=== PATIENT | male | born 1935 | race Hispanic/Latino ===

== ENCOUNTER 2020-02-22 11:23 | Inpatient (IN) | payer OTHER, MEDICARE ==
[~2020-02-22] VITALS: Ht 172.7 cm; Wt 93.2 kg
[2020-02-22 12:13] LABS: HEMATOCRIT 36.6 % (42-54); LYMPHOCYTES % (AUTO) 9.6 % (21.0-51.0); MEAN CORPUSCULAR HEMOGLOBIN 29.2 pg (27.0-33.0); MEAN CORPUSCULAR HGB CONC 34.4 g/dL (32.0-36.0); MEAN CORPUSCULAR VOLUME 84.7 fL (79-99); MONOCYTES % (AUTO) 6.4 % (3.0-13.0); NEUTROPHILS % (AUTO) 83.8 % (40.0-77.0); PLATELET COUNT (AUTO) 167 K/uL (130-400); RED BLOOD CELL COUNT(AUTO) 4.32 MIL/uL (4.50-6.20); RED CELL DISTRIBUTION WIDTH 12.8 % (11.0-15.5); WHITE BLOOD COUNT (AUTO) 4.1 K/uL (4.8-10.8)
[2020-02-22 12:45] LABS: CREATININE 1.3 mg/dL (0.5-1.5); POTASSIUM 4.5 mmol/L (3.5-5.1)
[2020-02-22 12:49] LABS: INR 1.03 (0.85-1.15)
[2020-02-22 12:50] LABS: PARTIAL THROMBOPLASTIN TIME 38.8 SEC (26.3-35.5)
[2020-02-22 13:00] LABS: ALBUMIN 3.2 g/dL (3.5-5.0); BILIRUBIN,TOTAL 0.5 mg/dL (0.2-1.0)
[2020-02-22] MEDS ORDERED: AZITHROMYCIN 500MG+NS 250ML 250 ML IV ONE (13:59)
[2020-02-22] MEDS ORDERED: DEXAMETHASONE SOD PHOSPHATE 10MG/ML 1ML VIAL ONE (13:59)
[2020-02-22] MEDS ORDERED: CEFTRIAXONE 1G VIAL ONE (14:00)
[2020-02-22] MEDS ORDERED: ACETAMINOPHEN 500 MG TABLET ONE (14:00)
[2020-02-22 15:21] LABS: APPEARANCE,URINE Clear (CLEAR); BILIRUBIN,URINE Negative (NEGATIVE); COLOR,URINE Yellow (YELLOW); GLUCOSE, URINE (UA) Negative (NEGATIVE); KETONES,URINE 15 mg/dL (NEGATIVE); LEUKOCYTE ESTERASE ,URINE Negative (NEGATIVE); NITRATE,URINE Negative (NEGATIVE); OCCULT BLOOD,URINE Trace (NEGATIVE); PROTEIN,URINE Trace mg/dL (NEGATIVE); UROBILINOGEN,URINE 0.2 mg/dL (0.2-1.0)
[2020-02-22 15:31] LABS: BACTERIA,URINE Rare /HPF (None Seen); RBC,URINE 0-1 /HPF (0-1); SQUAMOUS EPITHELIAL CELL,UR Rare /HPF (0-2); WBC,URINE 0-1 /HPF (0-1)
[2020-02-22] MEDS ORDERED: ONDANSETRON 4MG INJ IV PRN (18:45)
[2020-02-22] MEDS ORDERED: GLUCAGON 1MG KIT 1 MG ML IM PRN (18:45)
[2020-02-22] MEDS ORDERED: ERGOCALCIFEROL (VITAMIN D2) 50,000 UNIT CAPSULE PO ONE (18:45)
[2020-02-22] MEDS: 0.9%NACL 1000ML 1,000 ML IV SCH (18:45)
[2020-02-22] MEDS ORDERED: ACETAMINOPHEN 325 MG TAB PO PRN (18:45)
[2020-02-22] MEDS ORDERED: NITROGLYCERIN 0.4 MG SL TAB SL PRN (18:45)
[2020-02-22] MEDS: ALBUTEROL INHALER 90MCG/INH IH SCH ×2 (19:00→23:00)
[2020-02-22 19:41] LABS: HEMOGLOBIN A1C 7.2 % (4.0-6.0)
[2020-02-22 19:50] LABS: CRP QUANTITATIVE 101.1 mg/L (0.00-9.0); MAGNESIUM 2.1 mg/dL (1.80-2.40); TROPONIN I 0.04 ng/mL (0.00-0.06)
[2020-02-22] MEDS: HEPARIN 5,000 UNIT VIAL SQ SCH (21:00)
[2020-02-22] MEDS: ACETYLCYSTEINE 600 MG CAPSULE PO SCH (21:00)
[2020-02-22] MEDS: INSULIN HUMULIN R 100 UNIT/ML 3ML SQ SCH (21:00)
[2020-02-22] MEDS: CACL 1GM SYG IVP SCH (22:15)
[2020-02-22 23:08] LABS: TROPONIN I 0.05 ng/mL (0.00-0.06)
[2020-02-23 02:01] LABS: TROPONIN I 0.04 ng/mL (0.00-0.06)
[2020-02-23] MEDS: ALBUTEROL INHALER 90MCG/INH IH SCH ×6 (03:00→23:00)
[2020-02-23 03:28] LABS: HEMATOCRIT 37.1 % (42-54); LYMPHOCYTES % (AUTO) 13.1 % (21.0-51.0); MEAN CORPUSCULAR HGB CONC 34.5 g/dL (32.0-36.0); MEAN CORPUSCULAR VOLUME 83.9 fL (79-99); MONOCYTES % (AUTO) 7.1 % (3.0-13.0); NEUTROPHILS % (AUTO) 79.4 % (40.0-77.0); PLATELET COUNT (AUTO) 180 K/uL (130-400); RED BLOOD CELL COUNT(AUTO) 4.42 MIL/uL (4.50-6.20); RED CELL DISTRIBUTION WIDTH 12.8 % (11.0-15.5); WHITE BLOOD COUNT (AUTO) 2.7 K/uL (4.8-10.8)
[2020-02-23 04:00] LABS: ALANINE AMINOTRANSFERASE 27 U/L (12-78); ASPARTATE AMINOTRANSFERASE 40 U/L (10-37); BILIRUBIN,TOTAL 0.4 mg/dL (0.2-1.0); CARBON DIOXIDE 23 mmol/L (21-32); CHLORIDE 98 mmol/L (101-111); CREATININE 1.4 mg/dL (0.5-1.5); GLOMERULAR FILTR. RATE CALC 51 mL/min (>60); GLUCOSE,RANDOM 241 mg/dL (70-105); LACTATE DEHYDROGENASE 260 U/L (81-234); MYOGLOBIN 283 ng/mL (10-92); POTASSIUM 4.9 mmol/L (3.5-5.1); SODIUM SERUM 132 mmol/L (136-145); TOTAL PROTEIN, SERUM 6.4 g/dL (6.0-8.3); TROPONIN I < 0.04 ng/mL (0.00-0.06); UREA NITROGEN, BLOOD 22 mg/dL (7-18)
[2020-02-23 04:01] LABS: CREATINE KINASE, TOTAL 619 U/L (21-232)
[2020-02-23 04:37] LABS: LYMPHOCYTES % (MANUAL) 19 % (22-44); MAN.DIFF COMMENT-IMPRESSION MANUAL DIFFERENTIAL; MONOCYTES % (MANUAL) 3 % (2-9); SEGMENTED NEUTROPHILS % 78 % (40-70)
[2020-02-23 04:38] LABS: PLATELET MORPHOLOGY COMMENT ADEQUATE
[2020-02-23] MEDS: 0.9%NACL 1000ML 1,000 ML IV SCH ×2 (04:45→14:45)
[2020-02-23] MEDS: INSULIN HUMULIN R 100 UNIT/ML 3ML SQ SCH ×4 (07:30→21:00)
[2020-02-23] MEDS: AZITHROMYCIN 500MG+NS 250ML 250 ML IV SCH (09:00)
[2020-02-23] MEDS ORDERED: ENOXAPARIN SODIUM 40 MG/0.4 ML SYRINGE SQ SCH (09:00)
[2020-02-23] MEDS: FAMOTIDINE 20MG TAB PO SCH (09:00)
[2020-02-23] MEDS: ZINC SULFATE 220 CAPSULE PO SCH (09:00)
[2020-02-23] MEDS: CEFTRIAXONE 1G VIAL IV SCH (09:00)
[2020-02-23] MEDS: DEXAMETHASONE SOD PHOSPHATE 4 MG/ML 1ML VIAL IVP SCH (09:00)
[2020-02-23] MEDS: HEPARIN 5,000 UNIT VIAL SQ SCH ×3 (09:00→21:00)
[2020-02-23] MEDS: ACETYLCYSTEINE 600 MG CAPSULE PO SCH ×2 (09:00→21:00)
[2020-02-23] MEDS: ASCORBIC ACID 500 MG TAB PO SCH (09:00)
[2020-02-23] MEDS ORDERED: ASCORBIC ACID 500 MG TAB ONE (09:22)
[2020-02-23] MEDS ORDERED: DEXAMETHASONE SOD PHOSPHATE 10MG/ML 1ML VIAL ONE (09:22)
[2020-02-23] MEDS ORDERED: FAMOTIDINE 20MG TAB ONE (09:23)
[2020-02-23] MEDS ORDERED: ACETYLCYSTEINE 600 MG CAPSULE ONE ×2 (09:23→21:49)
[2020-02-23] MEDS ORDERED: 0.9%NACL 1000ML 1,000 ML IV ONE ×2 (09:23→09:26)
[2020-02-23] MEDS ORDERED: HEPARIN 5,000 UNIT VIAL ONE ×3 (09:23→22:18)
[2020-02-23] MEDS ORDERED: ZINC SULFATE 220 CAPSULE ONE (09:24)
[2020-02-23] MEDS ORDERED: ALBUTEROL INHALER 90MCG/INH IH ONE (09:38)
[2020-02-23 10:45] LABS: TROPONIN I 0.05 ng/mL (0.00-0.06)
[2020-02-23] MEDS ORDERED: INSULIN HUMULIN R 100 UNIT/ML 3ML ONE ×2 (12:00→17:42)
[2020-02-23] MEDS ORDERED: AZITHROMYCIN 500MG+NS 250ML 250 ML IV ONE (13:30)
[2020-02-23] MEDS ORDERED: CEFTRIAXONE 1G VIAL ONE (13:30)
[2020-02-23] MEDS ORDERED: 0.9%NACL 50ML 50 ML IV ONE (13:31)
[2020-02-23] MEDS ORDERED: PHARMACY COMMUNICATION**REMDESIVIR ORDER MISC SCH (15:15)
[2020-02-23 16:19] LABS: TROPONIN I 0.06 ng/mL (0.00-0.06)
[2020-02-23] MEDS ORDERED: 0.9% NACL 250ML 250 ML IV ONE (17:26)
[2020-02-23] MEDS: CACL 1GM SYG IVP SCH (22:15)
[2020-02-23 22:44] LABS: TROPONIN I 0.06 ng/mL (0.00-0.06)
[2020-02-24] VITALS (12 sets, daily range): BP systolic 104–155; BP diastolic 62–92
[2020-02-24] MEDS: 0.9%NACL 1000ML 1,000 ML IV SCH (01:18)
[2020-02-24] MEDS: ALBUTEROL INHALER 90MCG/INH IH SCH ×6 (03:00→23:28)
[2020-02-24 04:11] LABS: BASOPHILS % (AUTO) 0.1 % (0.0-5.0); HEMATOCRIT 36.6 % (42-54); LYMPHOCYTES % (AUTO) 5.9 % (21.0-51.0); MEAN CORPUSCULAR HEMOGLOBIN 29.1 pg (27.0-33.0); MEAN CORPUSCULAR HGB CONC 34.7 g/dL (32.0-36.0); MEAN CORPUSCULAR VOLUME 83.8 fL (79-99); MONOCYTES % (AUTO) 3.8 % (3.0-13.0); NEUTROPHILS % (AUTO) 89.8 % (40.0-77.0); PLATELET COUNT (AUTO) 228 K/uL (130-400); RED BLOOD CELL COUNT(AUTO) 4.37 MIL/uL (4.50-6.20); RED CELL DISTRIBUTION WIDTH 12.9 % (11.0-15.5); WHITE BLOOD COUNT (AUTO) 7.9 K/uL (4.8-10.8)
[2020-02-24 04:26] LABS: ALBUMIN 2.9 g/dL (3.5-5.0); BILIRUBIN,TOTAL 0.4 mg/dL (0.2-1.0); CREATININE 1.1 mg/dL (0.5-1.5); CRP QUANTITATIVE 61.5 mg/L (0.00-9.0); POTASSIUM 4.5 mmol/L (3.5-5.1); TOTAL PROTEIN, SERUM 6.9 g/dL (6.0-8.3)
[2020-02-24] MEDS ORDERED: MORPHINE 2 MG SYG IVP ONE ×2 (05:15)
[2020-02-24] MEDS ORDERED: MORPHINE 2 MG SYG ONE (05:25)
[2020-02-24 05:38] LABS: ABG HCO3 20.2 mmol/L (21.0-28.0); ABG OXYGEN SATURATION 95.9 % (95.0-99.0); ABG PCO2 31 mmHg (35-48)
[2020-02-24] MEDS: INSULIN HUMULIN R 100 UNIT/ML 3ML SQ SCH ×4 (06:35→22:22)
[2020-02-24] MEDS: ACETYLCYSTEINE 600 MG CAPSULE PO SCH ×2 (08:22→21:17)
[2020-02-24] MEDS: DEXAMETHASONE SOD PHOSPHATE 4 MG/ML 1ML VIAL IVP SCH (08:23)
[2020-02-24] MEDS: CEFTRIAXONE 1G VIAL IV SCH (08:23)
[2020-02-24] MEDS: FAMOTIDINE 20MG TAB PO SCH (08:23)
[2020-02-24] MEDS: ASCORBIC ACID 500 MG TAB PO SCH (08:23)
[2020-02-24] MEDS: ZINC SULFATE 220 CAPSULE PO SCH (08:24)
[2020-02-24] MEDS: HEPARIN 5,000 UNIT VIAL SQ SCH (08:25)
[2020-02-24] MEDS: AZITHROMYCIN 500MG+NS 250ML 250 ML IV SCH (08:25)
[2020-02-24] MEDS: ACETAMINOPHEN 325 MG TAB PO PRN ×2 (08:32→21:17)
[2020-02-24] MEDS ORDERED: COMPOUND IV REFRIGERATED 1 EACH IVSOLN MISC PRN (14:00)
[2020-02-24] MEDS ORDERED: REMDESIVIR (EUA) 520 200 MG in 0.9% NACL 250ML 250 ML IV ONE (14:00)
[2020-02-24] MEDS ORDERED: FUROSEMIDE 20MG VIAL IVP STA (14:04)
[2020-02-24] MEDS ORDERED: PHARMACY COMMUNICATION MISC SCH (14:45)
[2020-02-24] MEDS ORDERED: QUETIAPINE FUMARATE 25 MG TAB PO SCH (20:00)
[2020-02-24] MEDS ORDERED: ENOXAPARIN SODIUM 0.5 MG/KG EACH SQ SCH (21:00)
[2020-02-24] MEDS ORDERED: ENOXAPARIN SODIUM 40 MG/0.4 ML SYRINGE SQ SCH (21:00)
[2020-02-24] MEDS: CACL 1GM SYG IVP SCH (21:20)
[2020-02-24] MEDS: FUROSEMIDE 100MG VIAL IVP SCH (22:02)
[2020-02-25] VITALS (122 sets, daily range): BP systolic 49–184; BP diastolic 23–80
[2020-02-25] MEDS ORDERED: DEXMEDETOMIDINE HCL 200 MCG/2 ML VIAL IV ONE (02:19)
[2020-02-25] MEDS ORDERED: 0.9%NACL 100ML 100 ML IV ONE (02:23)
[2020-02-25] MEDS: ALBUTEROL INHALER 90MCG/INH IH SCH ×2 (03:00→07:00)
[2020-02-25] MEDS ORDERED: PROPOFOL 1000 MG/100 ML 100 ML IV ONE (03:31)
[2020-02-25] MEDS ORDERED: FENTANYL 2500MCG+NS 250ML 250 ML IV ONE (03:42)
[2020-02-25] MEDS ORDERED: FENTANYL CITRATE PF 0.05 MG/ML 1,000 MCG in 0.9%NACL 100ML 100 ML IVPB PRN (04:15)
[2020-02-25] MEDS ORDERED: 0.9%NACL 1000ML 1,000 ML IV ONE (04:33)
[2020-02-25] MEDS ORDERED: NOREPINEPHRINE BITARTRATE 1 MG/1 ML ML IV ONE (04:33)
[2020-02-25] MEDS ORDERED: NOREPINEPHRIN 4MG/NS 250ML 250 ML IV ONE ×2 (04:34→13:07)
[2020-02-25 04:43] LABS: ABG BASE EXCESS -5.8 mmol/L (-2.0-3.0); ABG HCO3 18.6 mmol/L (21.0-28.0); ABG OXYGEN SATURATION 89.7 % (95.0-99.0); ABG PCO2 33 mmHg (35-48)
[2020-02-25 04:56] LABS: BASOPHILS % (AUTO) 0.1 % (0.0-5.0); HEMATOCRIT 41.4 % (42-54); LYMPHOCYTES % (AUTO) 3.6 % (21.0-51.0); MEAN CORPUSCULAR HEMOGLOBIN 28.9 pg (27.0-33.0); MEAN CORPUSCULAR HGB CONC 33.1 g/dL (32.0-36.0); MEAN CORPUSCULAR VOLUME 87.3 fL (79-99); MONOCYTES % (AUTO) 3.5 % (3.0-13.0); NEUTROPHILS % (AUTO) 86.9 % (40.0-77.0); PLATELET COUNT (AUTO) 314 K/uL (130-400); RED BLOOD CELL COUNT(AUTO) 4.74 MIL/uL (4.50-6.20); RED CELL DISTRIBUTION WIDTH 13.2 % (11.0-15.5); WHITE BLOOD COUNT (AUTO) 16.9 K/uL (4.8-10.8)
[2020-02-25 05:21] LABS: ALBUMIN 2.8 g/dL (3.5-5.0); BILIRUBIN,DIRECT 0.3 mg/dL (0.0-0.3); BILIRUBIN,TOTAL 0.6 mg/dL (0.2-1.0); CREATININE 1.6 mg/dL (0.5-1.5); POTASSIUM 4.5 mmol/L (3.5-5.1); TOTAL PROTEIN, SERUM 7.2 g/dL (6.0-8.3)
[2020-02-25 05:26] LABS: TROPONIN I 0.65 ng/mL (0.00-0.06)
[2020-02-25 05:58] LABS: CRP QUANTITATIVE 239.2 mg/L (0.00-9.0)
[2020-02-25] MEDS: PHARMACY COMMUNICATION MISC SCH (06:00)
[2020-02-25] MEDS: FUROSEMIDE 100MG VIAL IVP SCH (06:00)
[2020-02-25] MEDS: INSULIN HUMULIN R 100 UNIT/ML 3ML SQ SCH ×4 (07:30→20:46)
[2020-02-25] MEDS: PROPOFOL 1000 MG/100 ML 100 ML IV PRN ×2 (09:31→20:43)
[2020-02-25] MEDS: FAMOTIDINE 20MG TAB PO SCH (09:37)
[2020-02-25] MEDS: DEXAMETHASONE SOD PHOSPHATE 4 MG/ML 1ML VIAL IVP SCH (09:37)
[2020-02-25] MEDS: ZINC SULFATE 220 CAPSULE PO SCH (09:38)
[2020-02-25] MEDS: ASCORBIC ACID 500 MG TAB PO SCH (09:38)
[2020-02-25] MEDS: ACETYLCYSTEINE 600 MG CAPSULE PO SCH ×2 (09:38→20:46)
[2020-02-25] MEDS ORDERED: PHENYLEPHRINE HCL 50 MG in 0.9% NACL 250ML 250 ML IV PRN (10:30)
[2020-02-25] MEDS ORDERED: DILTIAZEM 50MG VIAL IV SCH (11:15)
[2020-02-25] MEDS: MEROPENEM 1 GM VIAL IVP SCH ×2 (11:27→17:57)
[2020-02-25] MEDS: VASOPRESSIN 20 UNITS in 0.9%NACL 100ML 100 ML IV SCH (12:45)
[2020-02-25] MEDS ORDERED: NOREPINEPHRIN 4MG/NS 250ML 250 ML IV SCH (13:15)
[2020-02-25] MEDS ORDERED: REMDESIVIR (EUA) 520 100 MG in 0.9% NACL 250ML 250 ML IV SCH (14:00)
[2020-02-25] MEDS ORDERED: VECURONIUM 10MG/10ML IV ONE (15:49)
[2020-02-25] MEDS ORDERED: VECURONIUM 10MG/10ML 50 MG in 0.9%NACL 50ML 50 ML IV SCH (16:30)
[2020-02-25] MEDS: LINEZOLID 600 MG/ISO-OSM 300 ML IV SCH (17:57)
[2020-02-25] MEDS: NOREPINEPHRINE BITARTRATE 32 MG in 0.9% NACL 250ML 250 ML IV PRN (18:57)
[2020-02-25] MEDS: ENOXAPARIN SODIUM 80 MG/0.8 ML SQ SCH (20:50)
[2020-02-26] VITALS (112 sets, daily range): BP systolic 6–187; BP diastolic -21–92
[2020-02-26] MEDS: FENTANYL 2500MCG+NS 250ML 250 ML IV SCH ×2 (00:21→15:27)
[2020-02-26] MEDS ORDERED: VECURONIUM 10MG/10ML IV ONE (01:25)
[2020-02-26] MEDS: NOREPINEPHRINE BITARTRATE 32 MG in 0.9% NACL 250ML 250 ML IV PRN (01:55)
[2020-02-26] MEDS: VASOPRESSIN 20 UNITS in 0.9%NACL 100ML 100 ML IV SCH (02:45)
[2020-02-26] MEDS: PROPOFOL 1000 MG/100 ML 100 ML IV PRN ×4 (02:47→19:59)
[2020-02-26] MEDS: MEROPENEM 1 GM VIAL IVP SCH ×2 (02:47→11:13)
[2020-02-26 04:15] LABS: BASOPHILS % (AUTO) 0.2 % (0.0-5.0); EOSINOPHILS % (AUTO) 0.4 % (0.0-8.0); HEMATOCRIT 36.9 % (42-54); LYMPHOCYTES % (AUTO) 3.6 % (21.0-51.0); MEAN CORPUSCULAR HEMOGLOBIN 28.7 pg (27.0-33.0); MEAN CORPUSCULAR HGB CONC 32.8 g/dL (32.0-36.0); MEAN CORPUSCULAR VOLUME 87.6 fL (79-99); MONOCYTES % (AUTO) 4.9 % (3.0-13.0); NEUTROPHILS % (AUTO) 89.8 % (40.0-77.0); PLATELET COUNT (AUTO) 434 K/uL (130-400); RED BLOOD CELL COUNT(AUTO) 4.21 MIL/uL (4.50-6.20); RED CELL DISTRIBUTION WIDTH 13.5 % (11.0-15.5); WHITE BLOOD COUNT (AUTO) 16.8 K/uL (4.8-10.8)
[2020-02-26 04:25] LABS: ABG BASE EXCESS -12.2 mmol/L (-2.0-3.0); ABG HCO3 14.2 mmol/L (21.0-28.0); ABG OXYGEN SATURATION 98.6 % (95.0-99.0); ABG PCO2 34 mmHg (35-48)
[2020-02-26 04:34] LABS: CREATININE 2.9 mg/dL (0.5-1.5); MAGNESIUM 2.7 mg/dL (1.80-2.40); POTASSIUM 5.1 mmol/L (3.5-5.1)
[2020-02-26] MEDS: PHARMACY COMMUNICATION MISC SCH ×4 (06:00→18:45)
[2020-02-26] MEDS: INSULIN HUMULIN R 100 UNIT/ML 3ML SQ SCH ×3 (06:02→18:13)
[2020-02-26] MEDS ORDERED: INSULIN HUMULIN R 100 UNIT/ML 3ML SQ SCH (06:15)
[2020-02-26] MEDS ORDERED: INSULIN NPH 100 UNIT/ML 3ML SQ ONE (06:38)
[2020-02-26] MEDS: LINEZOLID 600 MG/ISO-OSM 300 ML IV SCH ×2 (06:44→18:13)
[2020-02-26 06:54] LABS: ALBUMIN 2.5 g/dL (3.5-5.0); BILIRUBIN,DIRECT 0.3 mg/dL (0.0-0.3); BILIRUBIN,TOTAL 0.6 mg/dL (0.2-1.0); TOTAL PROTEIN, SERUM 6.6 g/dL (6.0-8.3)
[2020-02-26] MEDS ORDERED: RENAL DOSE IV SCH (07:15)
[2020-02-26] MEDS: INSULIN NPH 100 UNIT/ML 3ML SQ SCH ×2 (07:15→16:47)
[2020-02-26] MEDS ORDERED: SODIUM BICARB 50MEQ 50ML VIAL IV SCH (08:16)
[2020-02-26] MEDS ORDERED: SODIUM BICARB 50MEQ 50ML VIAL IV STA (08:16)
[2020-02-26] MEDS ORDERED: SODIUM BICARB 50MEQ 50ML VIAL 100 ML ONE (08:29)
[2020-02-26] MEDS: PANTOPRAZOLE 40 MG/VIAL IVP SCH (08:37)
[2020-02-26] MEDS: DEXAMETHASONE SOD PHOSPHATE 4 MG/ML 1ML VIAL IVP SCH (08:37)
[2020-02-26] MEDS: ZINC SULFATE 220 CAPSULE PO SCH (08:38)
[2020-02-26] MEDS: ENOXAPARIN SODIUM 80 MG/0.8 ML SQ SCH ×2 (08:38→20:10)
[2020-02-26] MEDS ORDERED: ASPIRIN 325MG EC TAB PO SCH (09:00)
[2020-02-26] MEDS: ACETYLCYSTEINE 600 MG CAPSULE PO SCH (09:19)
[2020-02-26] MEDS: ASPIRIN 81MG CHEW TAB PO SCH (09:19)
[2020-02-26] MEDS: ASCORBIC ACID 500 MG TAB PO SCH (09:19)
[2020-02-26 10:04] LABS: PROTEIN,URINE RANDOM 99.5 mg/dL (0-11.9)
[2020-02-26 10:32] LABS: ABG BASE EXCESS -3.6 mmol/L (-2.0-3.0); ABG HCO3 20.5 mmol/L (21.0-28.0); ABG OXYGEN SATURATION 99.1 % (95.0-99.0); ABG PCO2 34 mmHg (35-48)
[2020-02-26] MEDS: ATORVASTATIN 20 MG TABLET PO SCH (20:09)
[2020-02-26] MEDS ORDERED: VASOPRESSIN 20 UNITS in 0.9%NACL 100ML 100 ML IV ONE (21:00)
[2020-02-26] MEDS: MEROPENEM 500 MG VIAL IVP SCH (22:00)
[2020-02-26] MEDS ORDERED: DOPAMINE 800MG/D5 250ML 250 ML IV ONE (22:03)
[2020-02-26] MEDS ORDERED: DOPAMINE 800MG/D5 250ML 250 ML IV STA (22:04)
[2020-02-27] VITALS (147 sets, daily range): BP systolic 87–170; BP diastolic 38–105
[2020-02-27] MEDS: INSULIN HUMULIN R 100 UNIT/ML 3ML SQ SCH ×5 (00:17→23:41)
[2020-02-27 04:44] LABS: HEMATOCRIT 33.6 % (42-54); LYMPHOCYTES % (AUTO) 4.3 % (21.0-51.0); MEAN CORPUSCULAR HEMOGLOBIN 29.1 pg (27.0-33.0); MEAN CORPUSCULAR HGB CONC 34.8 g/dL (32.0-36.0); MEAN CORPUSCULAR VOLUME 83.6 fL (79-99); NEUTROPHILS % (AUTO) 90.8 % (40.0-77.0); PLATELET COUNT (AUTO) 292 K/uL (130-400); RED BLOOD CELL COUNT(AUTO) 4.02 MIL/uL (4.50-6.20); RED CELL DISTRIBUTION WIDTH 13.2 % (11.0-15.5); WHITE BLOOD COUNT (AUTO) 7.7 K/uL (4.8-10.8)
[2020-02-27] MEDS: PROPOFOL 1000 MG/100 ML 100 ML IV PRN ×3 (04:45→22:54)
[2020-02-27] MEDS: FENTANYL 2500MCG+NS 250ML 250 ML IV SCH ×3 (04:54→22:55)
[2020-02-27 05:13] LABS: ALBUMIN 2.3 g/dL (3.5-5.0); BILIRUBIN,TOTAL 0.5 mg/dL (0.2-1.0); CREATININE 1.7 mg/dL (0.5-1.5); CRP QUANTITATIVE 161.2 mg/L (0.00-9.0); MAGNESIUM 2.8 mg/dL (1.80-2.40); PHOSPHORUS 2.7 mg/dL (2.5-4.9); TOTAL PROTEIN, SERUM 6.1 g/dL (6.0-8.3)
[2020-02-27] MEDS: LINEZOLID 600 MG/ISO-OSM 300 ML IV SCH ×2 (05:53→18:04)
[2020-02-27 06:51] LABS: ABG BASE EXCESS -0.8 mmol/L (-2.0-3.0); ABG HCO3 23.4 mmol/L (21.0-28.0); ABG OXYGEN SATURATION 94.1 % (95.0-99.0); ABG PCO2 37 mmHg (35-48)
[2020-02-27] MEDS: INSULIN NPH 100 UNIT/ML 3ML SQ SCH ×2 (07:07→18:04)
[2020-02-27] MEDS: ZINC SULFATE 220 CAPSULE PO SCH (08:14)
[2020-02-27] MEDS: ASPIRIN 81MG CHEW TAB PO SCH (08:14)
[2020-02-27] MEDS: ASCORBIC ACID 500 MG TAB PO SCH (08:14)
[2020-02-27] MEDS: ENOXAPARIN SODIUM 80 MG/0.8 ML SQ SCH ×2 (08:15→20:33)
[2020-02-27] MEDS: DEXAMETHASONE SOD PHOSPHATE 4 MG/ML 1ML VIAL IVP SCH (08:17)
[2020-02-27] MEDS: MEROPENEM 500 MG VIAL IVP SCH ×2 (09:00→21:24)
[2020-02-27] MEDS ORDERED: DOPAMINE 800MG/D5 250ML 250 ML IV PRN (09:53)
[2020-02-27] MEDS: PANTOPRAZOLE 40 MG/VIAL IVP SCH (10:32)
[2020-02-27] MEDS ORDERED: FUROSEMIDE 40MG VIAL ONE (12:14)
[2020-02-27] MEDS ORDERED: FUROSEMIDE 40MG VIAL IV SCH (13:50)
[2020-02-27 15:24] LABS: ALBUMIN 2.1 g/dL (3.5-5.0); BILIRUBIN,TOTAL 0.5 mg/dL (0.2-1.0); CREATININE 1.7 mg/dL (0.5-1.5); MAGNESIUM 2.9 mg/dL (1.80-2.40); PHOSPHORUS 2.6 mg/dL (2.5-4.9); POTASSIUM 4.2 mmol/L (3.5-5.1); TOTAL PROTEIN, SERUM 5.9 g/dL (6.0-8.3)
[2020-02-27] MEDS: VASOPRESSIN 20 UNITS in 0.9%NACL 100ML 100 ML IV SCH (20:12)
[2020-02-27] MEDS: ATORVASTATIN 20 MG TABLET PO SCH (20:31)
[2020-02-28] VITALS (101 sets, daily range): BP systolic 53–212; BP diastolic 25–101
[2020-02-28] MEDS ORDERED: 0.9% NACL 500ML IV.SOLN 500 ML IV ONE ×3 (00:59→16:53)
[2020-02-28] MEDS: VASOPRESSIN 20 UNITS in 0.9%NACL 100ML 100 ML IV SCH ×2 (04:30→14:20)
[2020-02-28 04:53] LABS: CREATININE 1.6 mg/dL (0.5-1.5); CRP QUANTITATIVE 80.6 mg/L (0.00-9.0); POTASSIUM 4.7 mmol/L (3.5-5.1)
[2020-02-28 05:04] LABS: % IRON SATURATION 33.1 % (30-44)
[2020-02-28] MEDS: LINEZOLID 600 MG/ISO-OSM 300 ML IV SCH ×2 (05:21→18:09)
[2020-02-28] MEDS: PROPOFOL 1000 MG/100 ML 100 ML IV PRN ×3 (05:23→21:06)
[2020-02-28] MEDS ORDERED: PHARMACY COMMUNICATION MISC SCH (05:45)
[2020-02-28] MEDS: INSULIN HUMULIN R 100 UNIT/ML 3ML SQ SCH ×4 (06:15→23:44)
[2020-02-28] MEDS: ASCORBIC ACID 500 MG TAB PO SCH (08:40)
[2020-02-28] MEDS: MEROPENEM 500 MG VIAL IVP SCH ×2 (08:40→20:59)
[2020-02-28] MEDS: ZINC SULFATE 220 CAPSULE PO SCH (08:40)
[2020-02-28] MEDS: PANTOPRAZOLE 40 MG/VIAL IVP SCH (08:41)
[2020-02-28] MEDS: ASPIRIN 81MG CHEW TAB PO SCH (08:41)
[2020-02-28] MEDS: ENOXAPARIN SODIUM 80 MG/0.8 ML SQ SCH ×2 (08:42→21:04)
[2020-02-28] MEDS: DEXAMETHASONE SOD PHOSPHATE 4 MG/ML 1ML VIAL IVP SCH (08:42)
[2020-02-28] MEDS: PHARMACY COMMUNICATION MISC SCH (08:43)
[2020-02-28] MEDS: INSULIN NPH 100 UNIT/ML 3ML SQ SCH ×2 (08:53→16:56)
[2020-02-28] MEDS: FENTANYL 2500MCG+NS 250ML 250 ML IV SCH ×3 (10:48→18:03)
[2020-02-28] MEDS ORDERED: FUROSEMIDE 40MG VIAL IV SCH ×2 (11:15→11:30)
[2020-02-28] MEDS: ATORVASTATIN 20 MG TABLET PO SCH (20:58)
[2020-02-29] VITALS (54 sets, daily range): BP systolic 73–181; BP diastolic 39–118
[2020-02-29 05:23] LABS: BILIRUBIN,TOTAL 0.6 mg/dL (0.2-1.0); CREATININE 1.4 mg/dL (0.5-1.5); CRP QUANTITATIVE 46.4 mg/L (0.00-9.0); HEMATOCRIT 31.8 % (42-54); MAGNESIUM 2.5 mg/dL (1.80-2.40); MEAN CORPUSCULAR HEMOGLOBIN 28.6 pg (27.0-33.0); MEAN CORPUSCULAR HGB CONC 32.4 g/dL (32.0-36.0); MEAN CORPUSCULAR VOLUME 88.3 fL (79-99); PLATELET COUNT (AUTO) 305 K/uL (130-400); POTASSIUM 4.4 mmol/L (3.5-5.1); RED CELL DISTRIBUTION WIDTH 13.5 % (11.0-15.5); TOTAL PROTEIN, SERUM 5.5 g/dL (6.0-8.3); WHITE BLOOD COUNT (AUTO) 7.6 K/uL (4.8-10.8)
[2020-02-29] MEDS: INSULIN HUMULIN R 100 UNIT/ML 3ML SQ SCH ×3 (05:25→19:03)
[2020-02-29] MEDS: LINEZOLID 600 MG/ISO-OSM 300 ML IV SCH ×2 (05:26→17:25)
[2020-02-29 06:19] LABS: BAND NEUTROPHILS % (MANUAL) 1 % (0-2); LYMPHOCYTES % (MANUAL) 3 % (22-44); MAN.DIFF COMMENT-IMPRESSION MANUAL DIFFERENTIAL; MONOCYTES % (MANUAL) 10 % (2-9); REACTIVE LYMPHOCYTES 2 % (0-0); SEGMENTED NEUTROPHILS % 84 % (40-70)
[2020-02-29] MEDS: PROPOFOL 1000 MG/100 ML 100 ML IV PRN ×3 (08:51→23:19)
[2020-02-29] MEDS: VASOPRESSIN 20 UNITS in 0.9%NACL 100ML 100 ML IV SCH (09:05)
[2020-02-29] MEDS: INSULIN NPH 100 UNIT/ML 3ML SQ SCH (09:10)
[2020-02-29] MEDS: ENOXAPARIN SODIUM 80 MG/0.8 ML SQ SCH ×2 (09:55→22:25)
[2020-02-29] MEDS: ASPIRIN 81MG CHEW TAB PO SCH (09:56)
[2020-02-29] MEDS: ZINC SULFATE 220 CAPSULE PO SCH (09:56)
[2020-02-29] MEDS: ASCORBIC ACID 500 MG TAB PO SCH (09:56)
[2020-02-29] MEDS: PANTOPRAZOLE 40 MG/VIAL IVP SCH (09:59)
[2020-02-29] MEDS: DEXAMETHASONE SOD PHOSPHATE 4 MG/ML 1ML VIAL IVP SCH (10:06)
[2020-02-29] MEDS: MEROPENEM 500 MG VIAL IVP SCH ×2 (11:21→22:28)
[2020-02-29] MEDS: FENTANYL 2500MCG+NS 250ML 250 ML IV SCH (11:24)
[2020-02-29] MEDS ORDERED: CISATRACURIUM BESYLATE IV SCH (12:00)
[2020-02-29] MEDS ORDERED: NACL 0.9% IV SCH (12:00)
[2020-02-29] MEDS ORDERED: CISATRACURIUM BESYLATE 100 MG in 0.9%NACL 100ML 100 ML IV SCH (12:30)
[2020-02-29] MEDS ORDERED: PHARMACY COMMUNICATION MISC SCH ×2 (14:00→20:15)
[2020-02-29] MEDS ORDERED: DEXMEDETOMIDINE HCL 400 MCG in 0.9%NACL 100ML 100 ML IV SCH (20:15)
[2020-02-29] MEDS: ATORVASTATIN 20 MG TABLET PO SCH (22:24)
[2020-02-29] MEDS: INSULIN GLARGINE 100 UNITS/ML 10 ML VIAL SQ SCH (22:25)
[2020-02-29] MEDS: NOREPINEPHRINE BITARTRATE 8 MG/NS 250ML IV SCH ×2 (23:24)
[2020-03-01] VITALS (56 sets, daily range): BP systolic 72–206; BP diastolic 34–112
[2020-03-01] MEDS: INSULIN HUMULIN R 100 UNIT/ML 3ML SQ SCH ×4 (01:18→18:20)
[2020-03-01] MEDS: LINEZOLID 600 MG/ISO-OSM 300 ML IV SCH ×2 (05:47→18:18)
[2020-03-01 06:11] LABS: BASOPHILS % (AUTO) 0.1 % (0.0-5.0); EOSINOPHILS % (AUTO) 0.4 % (0.0-8.0); LYMPHOCYTES % (AUTO) 7.2 % (21.0-51.0); MEAN CORPUSCULAR HGB CONC 32.2 g/dL (32.0-36.0); MEAN CORPUSCULAR VOLUME 90.1 fL (79-99); MONOCYTES % (AUTO) 4.3 % (3.0-13.0); NEUTROPHILS % (AUTO) 86.2 % (40.0-77.0); PLATELET COUNT (AUTO) 224 K/uL (130-400); RED BLOOD CELL COUNT(AUTO) 3.55 MIL/uL (4.50-6.20); RED CELL DISTRIBUTION WIDTH 13.3 % (11.0-15.5); WHITE BLOOD COUNT (AUTO) 7.2 K/uL (4.8-10.8)
[2020-03-01 06:24] LABS: CREATININE 1.3 mg/dL (0.5-1.5); CRP QUANTITATIVE 69.4 mg/L (0.00-9.0); POTASSIUM 4.5 mmol/L (3.5-5.1)
[2020-03-01] MEDS ORDERED: FENTANYL CITRATE PF 0.05 MG/ML 1,000 MCG in 0.9%NACL 100ML 100 ML IVPB SCH (07:45)
[2020-03-01] MEDS ORDERED: CISATRACURIUM BESYLATE 100 MG in 0.9%NACL 100ML 100 ML IV SCH ×2 (07:51→08:45)
[2020-03-01] MEDS: FENTANYL 2500MCG+NS 250ML 250 ML IV SCH (08:44)
[2020-03-01] MEDS: MEROPENEM 500 MG VIAL IVP SCH ×2 (09:04→21:41)
[2020-03-01] MEDS: ENOXAPARIN SODIUM 80 MG/0.8 ML SQ SCH ×2 (09:04→21:41)
[2020-03-01] MEDS: ASCORBIC ACID 500 MG TAB PO SCH (09:05)
[2020-03-01] MEDS: DEXAMETHASONE SOD PHOSPHATE 4 MG/ML 1ML VIAL IVP SCH (09:05)
[2020-03-01] MEDS: ASPIRIN 81MG CHEW TAB PO SCH (09:05)
[2020-03-01] MEDS: ZINC SULFATE 220 CAPSULE PO SCH (09:05)
[2020-03-01] MEDS: PANTOPRAZOLE 40 MG/VIAL IVP SCH (09:09)
[2020-03-01] MEDS: PROPOFOL 1000 MG/100 ML 100 ML IV PRN ×2 (10:01→19:47)
[2020-03-01] MEDS ORDERED: DEXMEDETOMIDINE HCL 1,000 MCG in 0.9% NACL 250ML 250 ML IV SCH (10:15)
[2020-03-01] MEDS: NACL 0.9% IV SCH ×2 (10:44→20:21)
[2020-03-01] MEDS: CISATRACURIUM BESYLATE IV SCH ×2 (10:44→20:21)
[2020-03-01] MEDS: DEXTROSE 5%-WATER 1,000 ML IV SCH (15:30)
[2020-03-01] MEDS ORDERED: COMPOUND IV REFRIGERATED 1 EACH IVSOLN MISC PRN (16:30)
[2020-03-01] MEDS: ATORVASTATIN 20 MG TABLET PO SCH (21:41)
[2020-03-01] MEDS: INSULIN GLARGINE 100 UNITS/ML 10 ML VIAL SQ SCH (21:44)
[2020-03-02] VITALS (110 sets, daily range): BP systolic 62–203; BP diastolic 26–110
[2020-03-02] MEDS: 1/2 NS 1000ML 1,000 ML IV SCH ×2 (02:18→13:17)
[2020-03-02] MEDS ORDERED: CISATRACURIUM BESYLATE 10 MG/ML 20ML VIAL IV ONE (04:01)
[2020-03-02 04:34] LABS: ABG BASE EXCESS 1.6 mmol/L (-2.0-3.0); ABG HCO3 29.1 mmol/L (21.0-28.0); ABG OXYGEN SATURATION 99.7 % (95.0-99.0); ABG PCO2 57 mmHg (35-48)
[2020-03-02] MEDS: DEXTROSE 5%-WATER 1,000 ML IV SCH (04:38)
[2020-03-02] MEDS: LINEZOLID 600 MG/ISO-OSM 300 ML IV SCH ×2 (04:40→16:47)
[2020-03-02 05:14] LABS: BASOPHILS % (AUTO) 0.2 % (0.0-5.0); EOSINOPHILS % (AUTO) 0.1 % (0.0-8.0); HEMATOCRIT 34.6 % (42-54); LYMPHOCYTES % (AUTO) 3.8 % (21.0-51.0); MEAN CORPUSCULAR HEMOGLOBIN 28.3 pg (27.0-33.0); MEAN CORPUSCULAR HGB CONC 30.9 g/dL (32.0-36.0); MEAN CORPUSCULAR VOLUME 91.5 fL (79-99); MONOCYTES % (AUTO) 4.5 % (3.0-13.0); NEUTROPHILS % (AUTO) 89.1 % (40.0-77.0); PLATELET COUNT (AUTO) 345 K/uL (130-400); RED BLOOD CELL COUNT(AUTO) 3.78 MIL/uL (4.50-6.20); RED CELL DISTRIBUTION WIDTH 13.4 % (11.0-15.5); WHITE BLOOD COUNT (AUTO) 14.6 K/uL (4.8-10.8)
[2020-03-02 05:40] LABS: ALBUMIN 1.9 g/dL (3.5-5.0); BILIRUBIN,TOTAL 0.7 mg/dL (0.2-1.0); CREATININE 1.2 mg/dL (0.5-1.5); POTASSIUM 5.7 mmol/L (3.5-5.1); TOTAL PROTEIN, SERUM 5.8 g/dL (6.0-8.3)
[2020-03-02] MEDS: INSULIN HUMULIN R 100 UNIT/ML 3ML SQ SCH ×4 (06:04→18:30)
[2020-03-02 06:28] LABS: CRP QUANTITATIVE 169.2 mg/L (0.00-9.0)
[2020-03-02] MEDS: NOREPINEPHRINE BITARTRATE 8 MG/NS 250ML IV SCH ×2 (07:25)
[2020-03-02] MEDS ORDERED: FENTANYL 2500MCG+NS 250ML 250 ML IV ONE (08:46)
[2020-03-02] MEDS: ASPIRIN 81MG CHEW TAB PO SCH (09:34)
[2020-03-02] MEDS: PANTOPRAZOLE 40 MG/VIAL IVP SCH (09:34)
[2020-03-02] MEDS: MEROPENEM 500 MG VIAL IVP SCH ×2 (09:35→21:58)
[2020-03-02] MEDS: ZINC SULFATE 220 CAPSULE PO SCH (09:35)
[2020-03-02] MEDS: DEXAMETHASONE SOD PHOSPHATE 4 MG/ML 1ML VIAL IVP SCH (09:35)
[2020-03-02] MEDS: ASCORBIC ACID 500 MG TAB PO SCH (09:36)
[2020-03-02] MEDS: ENOXAPARIN SODIUM 80 MG/0.8 ML SQ SCH (09:37)
[2020-03-02] MEDS: DILTIAZEM 125 MG/25 ML INJ 125 MG in 0.9%NACL 100ML 100 ML IV SCH ×2 (10:49→18:26)
[2020-03-02] MEDS: PROPOFOL 1000 MG/100 ML 100 ML IV PRN ×2 (12:17→17:15)
[2020-03-02] MEDS: KAYEXALATE 15GM/60ML GT SCH (13:17)
[2020-03-02] MEDS: VASOPRESSIN 20 UNITS in 0.9%NACL 100ML 100 ML IV SCH ×3 (13:33→19:54)
[2020-03-02] MEDS: CISATRACURIUM BESYLATE IV SCH ×2 (13:35→21:12)
[2020-03-02] MEDS: NACL 0.9% IV SCH ×2 (13:35→21:12)
[2020-03-02] MEDS: ARTIFICAL TEARS SOL 15 ML OD SCH ×2 (16:08→18:40)
[2020-03-02] MEDS: ATORVASTATIN 20 MG TABLET PO SCH (20:03)
[2020-03-02] MEDS: ENOXAPARIN SODIUM 60 MG/0.6 ML SQ SCH (20:04)
[2020-03-02] MEDS ORDERED: ENOXAPARIN SODIUM 0.5 MG/KG EACH SQ SCH (21:00)
[2020-03-02] MEDS ORDERED: INSULIN GLARGINE 100 UNITS/ML 10 ML VIAL SQ SCH (21:00)
[2020-03-03] VITALS (150 sets, daily range): BP systolic 84–171; BP diastolic 39–97
[2020-03-03] MEDS: ARTIFICAL TEARS SOL 15 ML OD SCH ×6 (00:18→20:47)
[2020-03-03] MEDS: PROPOFOL 1000 MG/100 ML 100 ML IV PRN ×4 (00:19→23:47)
[2020-03-03] MEDS: INSULIN HUMULIN R 100 UNIT/ML 3ML SQ SCH ×7 (00:30→18:47)
[2020-03-03] MEDS: VASOPRESSIN 20 UNITS in 0.9%NACL 100ML 100 ML IV SCH (03:24)
[2020-03-03] MEDS: DILTIAZEM 125 MG/25 ML INJ 125 MG in 0.9%NACL 100ML 100 ML IV SCH (03:58)
[2020-03-03 04:01] LABS: ABG BASE EXCESS 0.2 mmol/L (-2.0-3.0); ABG HCO3 26.9 mmol/L (21.0-28.0); ABG OXYGEN SATURATION 98.1 % (95.0-99.0); ABG PCO2 51 mmHg (35-48)
[2020-03-03] MEDS: CISATRACURIUM BESYLATE IV SCH (04:26)
[2020-03-03] MEDS: NACL 0.9% IV SCH (04:26)
[2020-03-03] MEDS: LINEZOLID 600 MG/ISO-OSM 300 ML IV SCH ×2 (05:26→16:39)
[2020-03-03 05:59] LABS: BASOPHILS % (AUTO) 0.1 % (0.0-5.0); EOSINOPHILS % (AUTO) 0.3 % (0.0-8.0); HEMATOCRIT 29.9 % (42-54); LYMPHOCYTES % (AUTO) 3.9 % (21.0-51.0); MEAN CORPUSCULAR HEMOGLOBIN 28.8 pg (27.0-33.0); MEAN CORPUSCULAR HGB CONC 31.8 g/dL (32.0-36.0); MEAN CORPUSCULAR VOLUME 90.6 fL (79-99); NEUTROPHILS % (AUTO) 88.4 % (40.0-77.0); PLATELET COUNT (AUTO) 233 K/uL (130-400); RED CELL DISTRIBUTION WIDTH 13.1 % (11.0-15.5); WHITE BLOOD COUNT (AUTO) 11.1 K/uL (4.8-10.8)
[2020-03-03 06:26] LABS: ALBUMIN 1.6 g/dL (3.5-5.0); BILIRUBIN,TOTAL 0.4 mg/dL (0.2-1.0); CREATININE 1.1 mg/dL (0.5-1.5); PHOSPHORUS 3.5 mg/dL (2.5-4.9); POTASSIUM 5.1 mmol/L (3.5-5.1); TOTAL PROTEIN, SERUM 5.2 g/dL (6.0-8.3)
[2020-03-03] MEDS ORDERED: FENTANYL 2500MCG+NS 250ML 250 ML IV ONE (08:22)
[2020-03-03] MEDS: ASCORBIC ACID 500 MG TAB PO SCH (08:28)
[2020-03-03] MEDS: ZINC SULFATE 220 CAPSULE PO SCH (08:28)
[2020-03-03] MEDS: ENOXAPARIN SODIUM 60 MG/0.6 ML SQ SCH ×2 (08:28→20:47)
[2020-03-03] MEDS: ASPIRIN 81MG CHEW TAB PO SCH (08:29)
[2020-03-03] MEDS: DEXAMETHASONE SOD PHOSPHATE 4 MG/ML 1ML VIAL IVP SCH (08:30)
[2020-03-03] MEDS ORDERED: FENTANYL CITRATE PF 0.05 MG/ML 1,000 MCG in 0.9%NACL 100ML 100 ML IVPB SCH (09:15)
[2020-03-03] MEDS: MEROPENEM 500 MG VIAL IVP SCH ×2 (09:20→22:00)
[2020-03-03] MEDS: PANTOPRAZOLE 40 MG/VIAL IVP SCH (09:20)
[2020-03-03] MEDS: FENTANYL 2500MCG+NS 250ML 250 ML IV SCH (10:44)
[2020-03-03] MEDS: KAYEXALATE 15GM/60ML GT SCH (12:26)
[2020-03-03] MEDS: DILTIAZEM 180MG SR CAP PO SCH ×2 (12:54→18:45)
[2020-03-03] MEDS: CISATRACURIUM BESYLATE 10 MG/ML 20ML VIAL IV SCH (17:10)
[2020-03-03] MEDS ORDERED: DEXMEDETOMIDINE HCL 400 MCG in 0.9%NACL 100ML 100 ML IV SCH (19:45)
[2020-03-03] MEDS ORDERED: PHENYLEPHRINE HCL 50 MG in 0.9% NACL 250ML 250 ML IV PRN (19:45)
[2020-03-03] MEDS ORDERED: NOREPINEPHRINE BITARTRATE 8 MG in 0.9% NACL 250ML 250 ML IV SCH (19:45)
[2020-03-03] MEDS ORDERED: INSULIN GLARGINE 100 UNITS/ML 10 ML VIAL SQ SCH (21:00)
[2020-03-03] MEDS ORDERED: DILTIAZEM 60MG TAB ONE (23:30)
[2020-03-04] VITALS (81 sets, daily range): BP systolic 84–167; BP diastolic 36–107
[2020-03-04] MEDS: DILTIAZEM 180MG SR CAP PO SCH
[2020-03-04 03:39] LABS: ABG BASE EXCESS 4.4 mmol/L (-2.0-3.0); ABG HCO3 29.1 mmol/L (21.0-28.0); ABG OXYGEN SATURATION 86.9 % (95.0-99.0); ABG PCO2 44 mmHg (35-48)
[2020-03-04 04:12] LABS: BASOPHILS % (AUTO) 0.1 % (0.0-5.0); EOSINOPHILS % (AUTO) 0.1 % (0.0-8.0); HEMATOCRIT 27.7 % (42-54); LYMPHOCYTES % (AUTO) 3.1 % (21.0-51.0); MEAN CORPUSCULAR HEMOGLOBIN 28.5 pg (27.0-33.0); MEAN CORPUSCULAR HGB CONC 31.8 g/dL (32.0-36.0); MEAN CORPUSCULAR VOLUME 89.6 fL (79-99); MONOCYTES % (AUTO) 5.2 % (3.0-13.0); NEUTROPHILS % (AUTO) 89.3 % (40.0-77.0); PLATELET COUNT (AUTO) 374 K/uL (130-400); RED BLOOD CELL COUNT(AUTO) 3.09 MIL/uL (4.50-6.20); RED CELL DISTRIBUTION WIDTH 13.3 % (11.0-15.5); WHITE BLOOD COUNT (AUTO) 13.4 K/uL (4.8-10.8)
[2020-03-04] MEDS: ARTIFICAL TEARS SOL 15 ML OD SCH ×7 (04:24→23:10)
[2020-03-04 04:33] LABS: ALBUMIN 1.7 g/dL (3.5-5.0); BILIRUBIN,TOTAL 0.4 mg/dL (0.2-1.0); CREATININE 1.4 mg/dL (0.5-1.5); MAGNESIUM 2.9 mg/dL (1.80-2.40); PHOSPHORUS 3.6 mg/dL (2.5-4.9); POTASSIUM 4.4 mmol/L (3.5-5.1); TOTAL PROTEIN, SERUM 5.3 g/dL (6.0-8.3)
[2020-03-04] MEDS: PROPOFOL 1000 MG/100 ML 100 ML IV PRN ×3 (05:42→18:06)
[2020-03-04] MEDS: VASOPRESSIN 20 UNITS in 0.9%NACL 100ML 100 ML IV SCH ×2 (05:45→23:26)
[2020-03-04] MEDS: CISATRACURIUM BESYLATE 10 MG/ML 20ML VIAL IV SCH ×2 (06:00)
[2020-03-04] MEDS ORDERED: NOREPINEPHRINE BITARTRATE 1 MG/1 ML ML IV ONE (06:07)
[2020-03-04] MEDS: INSULIN HUMULIN R 100 UNIT/ML 3ML SQ SCH ×6 (06:37→23:09)
[2020-03-04] MEDS: LINEZOLID 600 MG/ISO-OSM 300 ML IV SCH ×2 (06:49→17:48)
[2020-03-04] MEDS: DILTIAZEM 60MG TAB PO SCH ×4 (06:50→23:07)
[2020-03-04] MEDS: DEXAMETHASONE SOD PHOSPHATE 4 MG/ML 1ML VIAL IVP SCH (08:30)
[2020-03-04] MEDS: ENOXAPARIN SODIUM 60 MG/0.6 ML SQ SCH ×2 (08:31→21:41)
[2020-03-04] MEDS: ASCORBIC ACID 500 MG TAB PO SCH (08:31)
[2020-03-04] MEDS: ZINC SULFATE 220 CAPSULE PO SCH (08:32)
[2020-03-04] MEDS: ASPIRIN 81MG CHEW TAB PO SCH (08:32)
[2020-03-04] MEDS: FENTANYL 2500MCG+NS 250ML 250 ML IV SCH (08:57)
[2020-03-04] MEDS ORDERED: LANSOPRAZOLE 15 MG SOLU TAB GT SCH (09:00)
[2020-03-04] MEDS: MEROPENEM 500 MG VIAL IVP SCH ×2 (09:23→21:37)
[2020-03-04] MEDS ORDERED: CISATRACURIUM BESYLATE 10 MG/ML 20ML VIAL IV PRN (11:35)
[2020-03-04] MEDS: INSULIN GLARGINE 100 UNITS/ML 10 ML VIAL SQ SCH (21:36)
[2020-03-04] MEDS: DEXMEDETOMIDINE HCL 400 MCG in 0.9%NACL 100ML 100 ML IV SCH (23:13)
[2020-03-05] VITALS (84 sets, daily range): BP systolic 77–144; BP diastolic 33–80
[2020-03-05] MEDS: PROPOFOL 1000 MG/100 ML 100 ML IV PRN ×4 (01:47→21:58)
[2020-03-05 03:53] LABS: ABG BASE EXCESS 1.6 mmol/L (-2.0-3.0); ABG HCO3 25.5 mmol/L (21.0-28.0); ABG OXYGEN SATURATION 90.3 % (95.0-99.0); ABG PCO2 38 mmHg (35-48)
[2020-03-05] MEDS: ARTIFICAL TEARS SOL 15 ML OD SCH ×5 (05:00→21:31)
[2020-03-05] MEDS: LINEZOLID 600 MG/ISO-OSM 300 ML IV SCH ×2 (05:04→17:30)
[2020-03-05] MEDS: DILTIAZEM 60MG TAB PO SCH ×3 (05:04→17:33)
[2020-03-05] MEDS: DEXMEDETOMIDINE HCL 400 MCG in 0.9%NACL 100ML 100 ML IV SCH ×3 (05:19→17:29)
[2020-03-05] MEDS: INSULIN HUMULIN R 100 UNIT/ML 3ML SQ SCH ×3 (07:02→17:32)
[2020-03-05 08:24] LABS: ALBUMIN 1.6 g/dL (3.5-5.0); BILIRUBIN,TOTAL 0.4 mg/dL (0.2-1.0); CREATININE 1.4 mg/dL (0.5-1.5); CRP QUANTITATIVE 31.6 mg/L (0.00-9.0); POTASSIUM 4.8 mmol/L (3.5-5.1)
[2020-03-05] MEDS: ENOXAPARIN SODIUM 60 MG/0.6 ML SQ SCH ×2 (09:02→21:31)
[2020-03-05] MEDS: ASCORBIC ACID 500 MG TAB PO SCH (09:03)
[2020-03-05] MEDS: ZINC SULFATE 220 CAPSULE PO SCH (09:03)
[2020-03-05] MEDS: ASPIRIN 81MG CHEW TAB PO SCH (09:03)
[2020-03-05] MEDS: MEROPENEM 500 MG VIAL IVP SCH ×2 (09:04→22:52)
[2020-03-05] MEDS: DEXAMETHASONE SOD PHOSPHATE 4 MG/ML 1ML VIAL IVP SCH (09:04)
[2020-03-05] MEDS: FENTANYL 2500MCG+NS 250ML 250 ML IV SCH (09:40)
[2020-03-05] MEDS ORDERED: PHARMACY COMMUNICATION MISC SCH ×3 (09:45→19:00)
[2020-03-05] MEDS: DIGOXIN 250 MCG/ML 2ML AMP IV SCH (12:36)
[2020-03-05] MEDS ORDERED: 0.9% NACL 500ML IV.SOLN 500 ML IV PRN (15:45)
[2020-03-05] MEDS: MIDODRINE HCL 5 MG TABLET GT SCH ×2 (16:06→22:00)
[2020-03-05] MEDS: VASOPRESSIN 20 UNITS in 0.9%NACL 100ML 100 ML IV SCH (20:31)
[2020-03-05] MEDS: INSULIN GLARGINE 100 UNITS/ML 10 ML VIAL SQ SCH (21:30)
[2020-03-06] VITALS (142 sets, daily range): BP systolic 79–137; BP diastolic 29–77
[2020-03-06] MEDS: ARTIFICAL TEARS SOL 15 ML OD SCH ×6 (01:04→21:09)
[2020-03-06] MEDS: INSULIN HUMULIN R 100 UNIT/ML 3ML SQ SCH ×4 (01:07→18:56)
[2020-03-06] MEDS: DEXMEDETOMIDINE HCL 400 MCG in 0.9%NACL 100ML 100 ML IV SCH ×5 (02:31→22:32)
[2020-03-06 03:47] LABS: ABG BASE EXCESS 1.2 mmol/L (-2.0-3.0); ABG HCO3 25.7 mmol/L (21.0-28.0); ABG PCO2 41 mmHg (35-48)
[2020-03-06] MEDS: PROPOFOL 1000 MG/100 ML 100 ML IV PRN ×3 (04:01→21:25)
[2020-03-06 05:49] LABS: HEMATOCRIT 21.7 % (42-54); MEAN CORPUSCULAR HGB CONC 32.3 g/dL (32.0-36.0); NEUTROPHILS % (AUTO) 83.6 % (40.0-77.0); PLATELET COUNT (AUTO) 153 K/uL (130-400); RED BLOOD CELL COUNT(AUTO) 2.41 MIL/uL (4.50-6.20); RED CELL DISTRIBUTION WIDTH 13.2 % (11.0-15.5); WHITE BLOOD COUNT (AUTO) 10.1 K/uL (4.8-10.8)
[2020-03-06] MEDS: DILTIAZEM 60MG TAB PO SCH ×4 (06:00→18:00)
[2020-03-06] MEDS: MIDODRINE HCL 5 MG TABLET GT SCH ×3 (06:00→22:00)
[2020-03-06 06:18] LABS: ALBUMIN 1.5 g/dL (3.5-5.0); BILIRUBIN,TOTAL 0.4 mg/dL (0.2-1.0); CREATININE 1.5 mg/dL (0.5-1.5); MAGNESIUM 2.9 mg/dL (1.80-2.40); PHOSPHORUS 5.9 mg/dL (2.5-4.9); TOTAL PROTEIN, SERUM 4.6 g/dL (6.0-8.3)
[2020-03-06] MEDS: LINEZOLID 600 MG/ISO-OSM 300 ML IV SCH ×2 (06:18→17:16)
[2020-03-06 07:59] LABS: HEMATOCRIT 22.9 % (42-54); MEAN CORPUSCULAR HEMOGLOBIN 28.9 pg (27.0-33.0); MEAN CORPUSCULAR HGB CONC 31.9 g/dL (32.0-36.0); MEAN CORPUSCULAR VOLUME 90.5 fL (79-99); RED BLOOD CELL COUNT(AUTO) 2.53 MIL/uL (4.50-6.20); RED CELL DISTRIBUTION WIDTH 13.2 % (11.0-15.5); WHITE BLOOD COUNT (AUTO) 10.7 K/uL (4.8-10.8)
[2020-03-06] MEDS: ZINC SULFATE 220 CAPSULE PO SCH (09:00)
[2020-03-06] MEDS: ASPIRIN 81MG CHEW TAB PO SCH (09:00)
[2020-03-06] MEDS: ASCORBIC ACID 500 MG TAB PO SCH (09:00)
[2020-03-06] MEDS: ENOXAPARIN SODIUM 60 MG/0.6 ML SQ SCH (09:00)
[2020-03-06] MEDS: MEROPENEM 500 MG VIAL IVP SCH ×2 (09:28→22:30)
[2020-03-06] MEDS: DEXAMETHASONE SOD PHOSPHATE 4 MG/ML 1ML VIAL IVP SCH (09:28)
[2020-03-06] MEDS: DIGOXIN 250 MCG/ML 2ML AMP IV SCH (09:29)
[2020-03-06] MEDS: PANTOPRAZOLE 40 MG/VIAL IVP SCH ×2 (13:29→21:07)
[2020-03-06] MEDS: DILTIAZEM 125 MG/25 ML INJ 125 MG in 0.9%NACL 100ML 100 ML IV SCH (13:53)
[2020-03-06] MEDS ORDERED: 0.9%NACL 1000ML 1,000 ML IV ONE (13:57)
[2020-03-06] MEDS: VASOPRESSIN 20 UNITS in 0.9%NACL 100ML 100 ML IV SCH (14:30)
[2020-03-06 18:49] LABS: HEMATOCRIT 26.7 % (42-54)
[2020-03-06] MEDS: INSULIN GLARGINE 100 UNITS/ML 10 ML VIAL SQ SCH (21:06)
[2020-03-07] VITALS (155 sets, daily range): BP systolic 76–182; BP diastolic 29–93
[2020-03-07] MEDS: ARTIFICAL TEARS SOL 15 ML OD SCH ×6 (00:50→21:02)
[2020-03-07] MEDS: INSULIN HUMULIN R 100 UNIT/ML 3ML SQ SCH ×4 (00:52→17:52)
[2020-03-07] MEDS: DEXMEDETOMIDINE HCL 400 MCG in 0.9%NACL 100ML 100 ML IV SCH ×4 (02:59→19:48)
[2020-03-07] MEDS: PROPOFOL 1000 MG/100 ML 100 ML IV PRN ×4 (03:01→23:20)
[2020-03-07 03:43] LABS: ABG BASE EXCESS -1.5 mmol/L (-2.0-3.0); ABG HCO3 21.2 mmol/L (21.0-28.0); ABG OXYGEN SATURATION 95.1 % (95.0-99.0); ABG PCO2 31 mmHg (35-48)
[2020-03-07 04:13] LABS: BASOPHILS % (AUTO) 0.1 % (0.0-5.0); HEMATOCRIT 26.8 % (42-54); LYMPHOCYTES % (AUTO) 7.3 % (21.0-51.0); MEAN CORPUSCULAR HEMOGLOBIN 29.1 pg (27.0-33.0); MEAN CORPUSCULAR HGB CONC 32.8 g/dL (32.0-36.0); MEAN CORPUSCULAR VOLUME 88.7 fL (79-99); MONOCYTES % (AUTO) 4.7 % (3.0-13.0); NEUTROPHILS % (AUTO) 86.6 % (40.0-77.0); NUCLEATED RED BLOOD CELLS 0.4 % (0.0-0.19); PLATELET COUNT (AUTO) 158 K/uL (130-400); RED BLOOD CELL COUNT(AUTO) 3.02 MIL/uL (4.50-6.20); RED CELL DISTRIBUTION WIDTH 13.3 % (11.0-15.5); WHITE BLOOD COUNT (AUTO) 9.2 K/uL (4.8-10.8)
[2020-03-07 04:33] LABS: INR 1.12 (0.85-1.15); PROTHROMBIN TIME 11.9 SEC (9.6-11.6)
[2020-03-07 04:34] LABS: ALBUMIN 1.6 g/dL (3.5-5.0); BILIRUBIN,TOTAL 0.5 mg/dL (0.2-1.0); CREATININE 1.4 mg/dL (0.5-1.5); MAGNESIUM 3.5 mg/dL (1.80-2.40); PARTIAL THROMBOPLASTIN TIME 25.5 SEC (26.3-35.5); PHOSPHORUS 5.8 mg/dL (2.5-4.9); POTASSIUM 5.1 mmol/L (3.5-5.1); TOTAL PROTEIN, SERUM 4.8 g/dL (6.0-8.3)
[2020-03-07 04:58] LABS: % IRON SATURATION 37.9 % (30-44)
[2020-03-07] MEDS: DILTIAZEM 60MG TAB PO SCH ×4 (06:00→18:00)
[2020-03-07] MEDS: MIDODRINE HCL 5 MG TABLET GT SCH ×3 (06:00→21:15)
[2020-03-07] MEDS: LINEZOLID 600 MG/ISO-OSM 300 ML IV SCH ×2 (06:25→18:43)
[2020-03-07] MEDS: VASOPRESSIN 20 UNITS in 0.9%NACL 100ML 100 ML IV SCH ×5 (07:51→15:26)
[2020-03-07] MEDS: ASCORBIC ACID 500 MG TAB PO SCH (07:53)
[2020-03-07] MEDS: ZINC SULFATE 220 CAPSULE PO SCH (07:53)
[2020-03-07] MEDS: MEROPENEM 500 MG VIAL IVP SCH ×2 (09:55→21:14)
[2020-03-07] MEDS: DEXAMETHASONE SOD PHOSPHATE 4 MG/ML 1ML VIAL IVP SCH (09:55)
[2020-03-07] MEDS: PANTOPRAZOLE 40 MG/VIAL IVP SCH ×2 (09:55→21:02)
[2020-03-07] MEDS: DIGOXIN 250 MCG/ML 2ML AMP IV SCH (09:56)
[2020-03-07 10:35] LABS: HEMATOCRIT 26.7 % (42-54)
[2020-03-07] MEDS: FENTANYL 2500MCG+NS 250ML 250 ML IV SCH (11:02)
[2020-03-07] MEDS: DILTIAZEM 125 MG/25 ML INJ 125 MG in 0.9%NACL 100ML 100 ML IV SCH ×4 (11:09→15:28)
[2020-03-07] MEDS: NYSTATIN 100000 UNIT/ML 5ML UDCUP PO SCH ×2 (13:06→21:02)
[2020-03-07] MEDS ORDERED: DIATR MEGLU/DIATRIZOATE SODIUM 30 ML BOTTLE ONE (14:06)
[2020-03-07] MEDS ORDERED: ROCURONIUM 10MG/1ML SYR 10 MG/ML ML IV SCH (16:22)
[2020-03-07] MEDS: INSULIN GLARGINE 100 UNITS/ML 10 ML VIAL SQ SCH (21:02)
[2020-03-08] VITALS (254 sets, daily range): BP systolic 82–149; BP diastolic 34–107
[2020-03-08] MEDS: DEXMEDETOMIDINE HCL 400 MCG in 0.9%NACL 100ML 100 ML IV SCH ×4 (00:35→18:17)
[2020-03-08] MEDS: INSULIN HUMULIN R 100 UNIT/ML 3ML SQ SCH ×4 (01:04→18:00)
[2020-03-08] MEDS: DILTIAZEM 60MG TAB PO SCH ×4 (02:52→18:00)
[2020-03-08 03:34] LABS: ABG BASE EXCESS -1.2 mmol/L (-2.0-3.0); ABG HCO3 22.6 mmol/L (21.0-28.0); ABG OXYGEN SATURATION 88.4 % (95.0-99.0); ABG PCO2 35 mmHg (35-48)
[2020-03-08] MEDS: NYSTATIN 100000 UNIT/ML 5ML UDCUP PO SCH ×3 (03:50→19:30)
[2020-03-08] MEDS: ARTIFICAL TEARS SOL 15 ML OD SCH ×6 (04:00→21:28)
[2020-03-08 05:07] LABS: MAGNESIUM 2.8 mg/dL (1.80-2.40)
[2020-03-08] MEDS: MIDODRINE HCL 5 MG TABLET GT SCH ×3 (06:31→21:23)
[2020-03-08] MEDS: LINEZOLID 600 MG/ISO-OSM 300 ML IV SCH ×2 (06:33→17:41)
[2020-03-08] MEDS: ZINC SULFATE 220 CAPSULE PO SCH (09:00)
[2020-03-08] MEDS: ASCORBIC ACID 500 MG TAB PO SCH (09:00)
[2020-03-08] MEDS: MEROPENEM 500 MG VIAL IVP SCH ×2 (09:45→21:19)
[2020-03-08] MEDS: DEXAMETHASONE SOD PHOSPHATE 4 MG/ML 1ML VIAL IVP SCH (09:45)
[2020-03-08] MEDS: PANTOPRAZOLE 40 MG/VIAL IVP SCH ×2 (09:45→21:19)
[2020-03-08] MEDS: DIGOXIN 250 MCG/ML 2ML AMP IV SCH (09:45)
[2020-03-08] MEDS: VASOPRESSIN 20 UNITS in 0.9%NACL 100ML 100 ML IV SCH ×2 (10:07→18:17)
[2020-03-08] MEDS: PROPOFOL 1000 MG/100 ML 100 ML IV PRN ×3 (14:02→23:50)
[2020-03-08] MEDS ORDERED: METOPROLOL TARTRATE 1 MG/ML 5ML VIAL IV ONE (16:42)
[2020-03-08] MEDS ORDERED: METOPROLOL TARTRATE 1 MG/ML 5ML VIAL IV STA (16:48)
[2020-03-08] MEDS ORDERED: DILTIAZEM 25MG INJ IVP SCH (17:57)
[2020-03-08] MEDS: DILTIAZEM 125 MG/25 ML INJ 125 MG in 0.9%NACL 100ML 100 ML IV SCH ×2 (18:16→21:22)
[2020-03-08] MEDS ORDERED: AMIODARONE 900MG VIAL 450 MG in DEXTROSE 5%-WATER 250 ML IV SCH (19:30)
[2020-03-08] MEDS: INSULIN GLARGINE 100 UNITS/ML 10 ML VIAL SQ SCH (21:25)
[2020-03-09] VITALS (260 sets, daily range): BP systolic 77–152; BP diastolic 36–106
[2020-03-09] MEDS: INSULIN HUMULIN R 100 UNIT/ML 3ML SQ SCH ×4 (00:12→18:00)
[2020-03-09] MEDS: DILTIAZEM 60MG TAB PO SCH ×4 (00:58→17:17)
[2020-03-09] MEDS: NYSTATIN 100000 UNIT/ML 5ML UDCUP PO SCH ×3 (04:22→20:06)
[2020-03-09] MEDS: ARTIFICAL TEARS SOL 15 ML OD SCH ×6 (04:22→20:08)
[2020-03-09] MEDS: DIGOXIN 250 MCG/ML 2ML AMP IV SCH ×2 (06:00→09:05)
[2020-03-09 06:01] LABS: BASOPHILS % (AUTO) 0.1 % (0.0-5.0); HEMATOCRIT 26.9 % (42-54); LYMPHOCYTES % (AUTO) 4.2 % (21.0-51.0); MEAN CORPUSCULAR HEMOGLOBIN 29.2 pg (27.0-33.0); MEAN CORPUSCULAR HGB CONC 32.7 g/dL (32.0-36.0); MEAN CORPUSCULAR VOLUME 89.4 fL (79-99); NEUTROPHILS % (AUTO) 90.6 % (40.0-77.0); NUCLEATED RED BLOOD CELLS 0.4 % (0.0-0.19); PLATELET COUNT (AUTO) 178 K/uL (130-400); RED BLOOD CELL COUNT(AUTO) 3.01 MIL/uL (4.50-6.20); RED CELL DISTRIBUTION WIDTH 13.4 % (11.0-15.5); WHITE BLOOD COUNT (AUTO) 12.2 K/uL (4.8-10.8)
[2020-03-09] MEDS: MIDODRINE HCL 5 MG TABLET GT SCH ×3 (06:10→22:05)
[2020-03-09] MEDS: LINEZOLID 600 MG/ISO-OSM 300 ML IV SCH ×2 (06:10→17:18)
[2020-03-09 06:17] LABS: CREATININE 1.5 mg/dL (0.5-1.5); POTASSIUM 4.8 mmol/L (3.5-5.1)
[2020-03-09 06:25] LABS: INR 1.11 (0.85-1.15); PROTHROMBIN TIME 11.8 SEC (9.6-11.6)
[2020-03-09 06:26] LABS: PARTIAL THROMBOPLASTIN TIME 22.9 SEC (26.3-35.5)
[2020-03-09] MEDS: PROPOFOL 1000 MG/100 ML 100 ML IV PRN ×3 (08:05→17:18)
[2020-03-09] MEDS: PANTOPRAZOLE 40 MG/VIAL IVP SCH ×2 (09:04→20:05)
[2020-03-09] MEDS: ZINC SULFATE 220 CAPSULE PO SCH (09:04)
[2020-03-09] MEDS: DEXAMETHASONE SOD PHOSPHATE 4 MG/ML 1ML VIAL IVP SCH (09:04)
[2020-03-09] MEDS: ASCORBIC ACID 500 MG TAB PO SCH (09:04)
[2020-03-09] MEDS: MEROPENEM 500 MG VIAL IVP SCH ×2 (09:05→20:05)
[2020-03-09] MEDS: DEXMEDETOMIDINE HCL 400 MCG in 0.9%NACL 100ML 100 ML IV SCH (10:03)
[2020-03-09] MEDS: FENTANYL 2500MCG+NS 250ML 250 ML IV SCH (11:49)
[2020-03-09] MEDS ORDERED: MIDAZOLAM HCL 1 MG/ML 2ML VIAL IVP ONE (15:55)
[2020-03-09] MEDS: MIDAZOLAM 100MG-0.9% NS 100ML 50 ML IV PRN (19:03)
[2020-03-09] MEDS: INSULIN GLARGINE 100 UNITS/ML 10 ML VIAL SQ SCH (20:07)
[2020-03-10] VITALS (232 sets, daily range): BP systolic 83–164; BP diastolic 32–85
[2020-03-10] MEDS: INSULIN HUMULIN R 100 UNIT/ML 3ML SQ SCH ×4 (00:38→17:35)
[2020-03-10] MEDS: ARTIFICAL TEARS SOL 15 ML OD SCH ×6 (00:38→20:22)
[2020-03-10] MEDS: DILTIAZEM 60MG TAB PO SCH ×4 (01:18→16:05)
[2020-03-10] MEDS: NYSTATIN 100000 UNIT/ML 5ML UDCUP PO SCH ×3 (03:31→20:19)
[2020-03-10 03:35] LABS: ABG BASE EXCESS -2.7 mmol/L (-2.0-3.0); ABG HCO3 21.2 mmol/L (21.0-28.0); ABG OXYGEN SATURATION 97.6 % (95.0-99.0); ABG PCO2 35 mmHg (35-48)
[2020-03-10] MEDS: DIGOXIN 250 MCG/ML 2ML AMP IV SCH ×2 (06:00→09:00)
[2020-03-10 06:14] LABS: HEMATOCRIT 25.7 % (42-54); LYMPHOCYTES % (AUTO) 3.9 % (21.0-51.0); MEAN CORPUSCULAR HEMOGLOBIN 28.9 pg (27.0-33.0); MEAN CORPUSCULAR HGB CONC 32.3 g/dL (32.0-36.0); MEAN CORPUSCULAR VOLUME 89.5 fL (79-99); MONOCYTES % (AUTO) 2.6 % (3.0-13.0); NEUTROPHILS % (AUTO) 92.8 % (40.0-77.0); NUCLEATED RED BLOOD CELLS 0.2 % (0.0-0.19); PLATELET COUNT (AUTO) 175 K/uL (130-400); RED BLOOD CELL COUNT(AUTO) 2.87 MIL/uL (4.50-6.20); RED CELL DISTRIBUTION WIDTH 13.4 % (11.0-15.5); WHITE BLOOD COUNT (AUTO) 8.6 K/uL (4.8-10.8)
[2020-03-10 06:28] LABS: ALBUMIN 1.5 g/dL (3.5-5.0); BILIRUBIN,TOTAL 0.7 mg/dL (0.2-1.0); CREATININE 1.2 mg/dL (0.5-1.5); CRP QUANTITATIVE 22.4 mg/L (0.00-9.0); TOTAL PROTEIN, SERUM 4.7 g/dL (6.0-8.3)
[2020-03-10] MEDS: MIDODRINE HCL 5 MG TABLET GT SCH ×3 (06:53→20:20)
[2020-03-10] MEDS: LINEZOLID 600 MG/ISO-OSM 300 ML IV SCH (06:53)
[2020-03-10 07:03] LABS: B-TYPE NATRIURETIC PEPTIDE 129 pg/mL (0-100)
[2020-03-10] MEDS: MIDAZOLAM 100MG-0.9% NS 100ML 50 ML IV PRN (07:39)
[2020-03-10] MEDS: ASCORBIC ACID 500 MG TAB PO SCH (09:00)
[2020-03-10] MEDS: ZINC SULFATE 220 CAPSULE PO SCH (09:00)
[2020-03-10] MEDS: PANTOPRAZOLE 40 MG/VIAL IVP SCH ×2 (09:19→20:20)
[2020-03-10] MEDS: MEROPENEM 500 MG VIAL IVP SCH ×2 (09:19→20:20)
[2020-03-10] MEDS ORDERED: PHARMACY COMMUNICATION MISC SCH (11:45)
[2020-03-10] MEDS: METOCLOPRAMIDE 10 MG/2 ML VIAL IVP SCH ×2 (11:46→16:53)
[2020-03-10] MEDS: ALBUMIN (HUMAN) 25% 50 ML IV SCH ×2 (15:06→20:23)
[2020-03-10] MEDS: FUROSEMIDE 40MG VIAL IV SCH ×2 (16:37→20:20)
[2020-03-10] MEDS: DEXTROSE 50%-WATER 50 ML DISP.SYRIN IV PRN (18:00)
[2020-03-11] VITALS (178 sets, daily range): BP systolic 92–155; BP diastolic 37–72
[2020-03-11] MEDS: DILTIAZEM 60MG TAB PO SCH ×5 (00:36→23:52)
[2020-03-11] MEDS: METOCLOPRAMIDE 10 MG/2 ML VIAL IVP SCH ×5 (00:36→23:52)
[2020-03-11] MEDS: ARTIFICAL TEARS SOL 15 ML OD SCH ×7 (00:37→23:52)
[2020-03-11] MEDS: NYSTATIN 100000 UNIT/ML 5ML UDCUP PO SCH ×3 (04:10→21:06)
[2020-03-11] MEDS: FUROSEMIDE 40MG VIAL IV SCH ×2 (04:10→11:40)
[2020-03-11] MEDS: MIDAZOLAM 100MG-0.9% NS 100ML 50 ML IV PRN ×2 (04:12→15:28)
[2020-03-11 05:22] LABS: BASOPHILS % (AUTO) 0.1 % (0.0-5.0); HEMATOCRIT 26.4 % (42-54); LYMPHOCYTES % (AUTO) 4.2 % (21.0-51.0); MEAN CORPUSCULAR HEMOGLOBIN 28.8 pg (27.0-33.0); MEAN CORPUSCULAR HGB CONC 32.2 g/dL (32.0-36.0); MEAN CORPUSCULAR VOLUME 89.5 fL (79-99); MONOCYTES % (AUTO) 1.8 % (3.0-13.0); NEUTROPHILS % (AUTO) 91.4 % (40.0-77.0); PLATELET COUNT (AUTO) 137 K/uL (130-400); RED BLOOD CELL COUNT(AUTO) 2.95 MIL/uL (4.50-6.20); RED CELL DISTRIBUTION WIDTH 13.4 % (11.0-15.5); WHITE BLOOD COUNT (AUTO) 8.3 K/uL (4.8-10.8)
[2020-03-11 05:47] LABS: ALBUMIN 2.4 g/dL (3.5-5.0); BILIRUBIN,TOTAL 1.6 mg/dL (0.2-1.0); CREATININE 1.2 mg/dL (0.5-1.5); CRP QUANTITATIVE 35.6 mg/L (0.00-9.0); POTASSIUM 4.3 mmol/L (3.5-5.1); TOTAL PROTEIN, SERUM 5.4 g/dL (6.0-8.3)
[2020-03-11] MEDS: INSULIN HUMULIN R 100 UNIT/ML 3ML SQ SCH ×5 (06:00→23:52)
[2020-03-11] MEDS: MIDODRINE HCL 5 MG TABLET GT SCH ×3 (06:08→22:00)
[2020-03-11] MEDS: DEXTROSE 50%-WATER 50 ML DISP.SYRIN IV PRN ×2 (06:09→11:39)
[2020-03-11] MEDS: ZINC SULFATE 220 CAPSULE PO SCH (09:00)
[2020-03-11] MEDS: ASCORBIC ACID 500 MG TAB PO SCH (09:00)
[2020-03-11] MEDS: ALBUMIN (HUMAN) 25% 50 ML IV SCH (09:12)
[2020-03-11] MEDS: MEROPENEM 500 MG VIAL IVP SCH (09:12)
[2020-03-11] MEDS: DIGOXIN 250 MCG/ML 2ML AMP IV SCH (09:13)
[2020-03-11] MEDS: PANTOPRAZOLE 40 MG/VIAL IVP SCH ×2 (09:19→21:06)
[2020-03-11] MEDS: FENTANYL 2500MCG+NS 250ML 250 ML IV SCH (14:15)
[2020-03-11] MEDS: DEXMEDETOMIDINE HCL 400 MCG in 0.9%NACL 100ML 100 ML IV SCH (14:16)
[2020-03-11] MEDS ORDERED: FUROSEMIDE 20MG VIAL IV SCH (14:30)
[2020-03-11] MEDS: CLINIMIX-E 4.25AA/D5+LYT1000ML 1,000 ML IV NR (15:16)
[2020-03-11] MEDS ORDERED: ALBUMIN (HUMAN) 25% 50 ML IV SCH (16:15)
[2020-03-12] VITALS (201 sets, daily range): BP systolic 80–176; BP diastolic 37–95
[2020-03-12] MEDS: METOCLOPRAMIDE 10 MG/2 ML VIAL IVP SCH ×4 (04:06→23:38)
[2020-03-12] MEDS: NYSTATIN 100000 UNIT/ML 5ML UDCUP PO SCH ×3 (04:06→20:42)
[2020-03-12] MEDS: DILTIAZEM 60MG TAB PO SCH ×4 (04:07→23:38)
[2020-03-12] MEDS: MIDODRINE HCL 5 MG TABLET GT SCH ×3 (04:07→17:34)
[2020-03-12] MEDS: ARTIFICAL TEARS SOL 15 ML OD SCH ×6 (04:07→23:39)
[2020-03-12 04:23] LABS: EOSINOPHILS % (AUTO) 0.3 % (0.0-8.0); HEMATOCRIT 22.9 % (42-54); MEAN CORPUSCULAR HEMOGLOBIN 28.8 pg (27.0-33.0); MEAN CORPUSCULAR HGB CONC 31.4 g/dL (32.0-36.0); MEAN CORPUSCULAR VOLUME 91.6 fL (79-99); MONOCYTES % (AUTO) 1.6 % (3.0-13.0); NEUTROPHILS % (AUTO) 90.6 % (40.0-77.0); PLATELET COUNT (AUTO) 95 K/uL (130-400); RED CELL DISTRIBUTION WIDTH 13.6 % (11.0-15.5); WHITE BLOOD COUNT (AUTO) 6.1 K/uL (4.8-10.8)
[2020-03-12 04:38] LABS: % IRON SATURATION 9.9 % (30-44)
[2020-03-12 04:51] LABS: ALBUMIN 1.9 g/dL (3.5-5.0); BILIRUBIN,TOTAL 1.5 mg/dL (0.2-1.0); CREATININE 1.1 mg/dL (0.5-1.5); MAGNESIUM 3.1 mg/dL (1.80-2.40); PHOSPHORUS 3.2 mg/dL (2.5-4.9); POTASSIUM 4.3 mmol/L (3.5-5.1); THYROID STIMULATING HORMONE 0.67 uIU/mL (0.36-3.74); TOTAL PROTEIN, SERUM 4.7 g/dL (6.0-8.3)
[2020-03-12] MEDS: INSULIN HUMULIN R 100 UNIT/ML 3ML SQ SCH ×4 (06:00→23:34)
[2020-03-12] MEDS: MIDAZOLAM 100MG-0.9% NS 100ML 50 ML IV PRN ×2 (08:33→22:28)
[2020-03-12] MEDS: ZINC SULFATE 220 CAPSULE PO SCH (08:34)
[2020-03-12] MEDS: ASCORBIC ACID 500 MG TAB PO SCH (08:34)
[2020-03-12] MEDS: PANTOPRAZOLE 40 MG/VIAL IVP SCH ×2 (08:34→20:42)
[2020-03-12] MEDS: DIGOXIN 250 MCG/ML 2ML AMP IV SCH (08:34)
[2020-03-12] MEDS: DEXMEDETOMIDINE HCL 400 MCG in 0.9%NACL 100ML 100 ML IV SCH ×2 (09:42→19:33)
[2020-03-12] MEDS: CLINIMIX-E 4.25AA/D5+LYT1000ML 1,000 ML IV NR (16:43)
[2020-03-12] MEDS ORDERED: CLINIMIX-E4.25%AA/D5+LYT2000ML 2,000 ML IV NR (16:45)
[2020-03-12] MEDS ORDERED: PHARMACY COMMUNICATION MISC SCH (19:45)
[2020-03-13] VITALS (57 sets, daily range): BP systolic 81–166; BP diastolic 36–82
[2020-03-13] MEDS: DEXMEDETOMIDINE HCL 400 MCG in 0.9%NACL 100ML 100 ML IV SCH ×2 (02:18→10:18)
[2020-03-13] MEDS: ARTIFICAL TEARS SOL 15 ML OD SCH ×6 (03:18→23:43)
[2020-03-13] MEDS: NYSTATIN 100000 UNIT/ML 5ML UDCUP PO SCH ×3 (03:18→20:44)
[2020-03-13 03:29] LABS: ABG BASE EXCESS 3.2 mmol/L (-2.0-3.0); ABG HCO3 27.4 mmol/L (21.0-28.0); ABG OXYGEN SATURATION 95.2 % (95.0-99.0); ABG PCO2 40 mmHg (35-48)
[2020-03-13] MEDS: INSULIN HUMULIN R 100 UNIT/ML 3ML SQ SCH ×4 (05:10→23:45)
[2020-03-13] MEDS: MIDODRINE HCL 5 MG TABLET GT SCH ×3 (05:16→21:28)
[2020-03-13] MEDS: METOCLOPRAMIDE 10 MG/2 ML VIAL IVP SCH ×4 (05:16→23:42)
[2020-03-13] MEDS: DILTIAZEM 60MG TAB PO SCH ×4 (05:16→23:43)
[2020-03-13 05:19] LABS: EOSINOPHILS % (AUTO) 2.3 % (0.0-8.0); HEMATOCRIT 24.1 % (42-54); LYMPHOCYTES % (AUTO) 8.3 % (21.0-51.0); MEAN CORPUSCULAR HEMOGLOBIN 29.3 pg (27.0-33.0); MEAN CORPUSCULAR HGB CONC 31.5 g/dL (32.0-36.0); MEAN CORPUSCULAR VOLUME 93.1 fL (79-99); MONOCYTES % (AUTO) 2.7 % (3.0-13.0); NEUTROPHILS % (AUTO) 85.9 % (40.0-77.0); PLATELET COUNT (AUTO) 87 K/uL (130-400); RED BLOOD CELL COUNT(AUTO) 2.59 MIL/uL (4.50-6.20); RED CELL DISTRIBUTION WIDTH 13.8 % (11.0-15.5); WHITE BLOOD COUNT (AUTO) 4.8 K/uL (4.8-10.8)
[2020-03-13 05:50] LABS: ALBUMIN 1.7 g/dL (3.5-5.0); BILIRUBIN,TOTAL 1.7 mg/dL (0.2-1.0); POTASSIUM 4.7 mmol/L (3.5-5.1); TOTAL PROTEIN, SERUM 4.8 g/dL (6.0-8.3)
[2020-03-13] MEDS: DIGOXIN 250 MCG/ML 2ML AMP IV SCH (08:05)
[2020-03-13] MEDS: ASCORBIC ACID 500 MG TAB PO SCH (08:06)
[2020-03-13] MEDS: PANTOPRAZOLE 40 MG/VIAL IVP SCH ×2 (08:06→20:45)
[2020-03-13] MEDS: ZINC SULFATE 220 CAPSULE PO SCH (08:06)
[2020-03-13] MEDS: FENTANYL 2500MCG+NS 250ML 250 ML IV SCH (11:25)
[2020-03-13] MEDS: CLINIMIX-E 4.25AA/D5+LYT1000ML 1,000 ML IV NR (14:58)
[2020-03-13] MEDS ORDERED: CLINIMIX-E4.25%AA/D5+LYT2000ML 2,000 ML IV ONE (21:00)
[2020-03-14] VITALS (52 sets, daily range): BP systolic 90–155; BP diastolic 41–80
[2020-03-14] MEDS: DEXMEDETOMIDINE HCL 400 MCG in 0.9%NACL 100ML 100 ML IV SCH ×3 (01:39→23:02)
[2020-03-14] MEDS: NYSTATIN 100000 UNIT/ML 5ML UDCUP PO SCH ×3 (03:23→20:15)
[2020-03-14] MEDS: ARTIFICAL TEARS SOL 15 ML OD SCH ×5 (03:23→20:19)
[2020-03-14] MEDS: MIDAZOLAM 100MG-0.9% NS 100ML 50 ML IV PRN (04:19)
[2020-03-14] MEDS: DILTIAZEM 60MG TAB PO SCH ×3 (05:35→18:01)
[2020-03-14] MEDS: METOCLOPRAMIDE 10 MG/2 ML VIAL IVP SCH ×3 (05:35→18:01)
[2020-03-14] MEDS: INSULIN HUMULIN R 100 UNIT/ML 3ML SQ SCH ×3 (05:36→17:59)
[2020-03-14] MEDS: MIDODRINE HCL 5 MG TABLET GT SCH ×2 (05:37→15:00)
[2020-03-14] MEDS: PANTOPRAZOLE 40 MG/VIAL IVP SCH ×2 (09:19→20:15)
[2020-03-14] MEDS: DIGOXIN 250 MCG/ML 2ML AMP IV SCH (09:19)
[2020-03-14] MEDS: ASCORBIC ACID 500 MG TAB PO SCH (09:20)
[2020-03-14] MEDS: ZINC SULFATE 220 CAPSULE PO SCH (09:20)
[2020-03-14] MEDS: IRON SUCROSE COMPLEX 100 MG in 0.9%NACL 50ML 50 ML IV SCH (09:47)
[2020-03-14] MEDS ORDERED: EPOETIN ALFA-EPBX (NON-ESRD) 10,000 UNIT/ML VIAL SQ SCH (12:46)
[2020-03-14] MEDS: CLINIMIX-E 4.25AA/D5+LYT1000ML 1,000 ML IV NR (15:16)
[2020-03-14] MEDS: MIDODRINE HCL 5 MG TABLET PO SCH (20:16)
[2020-03-14] MEDS ORDERED: CLINIMIX-E4.25%AA/D5+LYT2000ML 2,000 ML IV ONE (21:30)
[2020-03-15] VITALS (27 sets, daily range): BP systolic 86–153; BP diastolic 37–69
[2020-03-15] MEDS: ARTIFICAL TEARS SOL 15 ML OD SCH ×6 (00:56→21:03)
[2020-03-15] MEDS: DILTIAZEM 60MG TAB PO SCH ×4 (01:00→17:56)
[2020-03-15] MEDS: METOCLOPRAMIDE 10 MG/2 ML VIAL IVP SCH ×4 (01:01→17:56)
[2020-03-15] MEDS: INSULIN HUMULIN R 100 UNIT/ML 3ML SQ SCH ×4 (01:02→17:56)
[2020-03-15] MEDS: NYSTATIN 100000 UNIT/ML 5ML UDCUP PO SCH ×3 (03:55→21:03)
[2020-03-15 04:23] LABS: ABG BASE EXCESS 0.5 mmol/L (-2.0-3.0); ABG OXYGEN SATURATION 93.7 % (95.0-99.0); ABG PCO2 36 mmHg (35-48)
[2020-03-15 04:51] LABS: EOSINOPHILS % (AUTO) 4.5 % (0.0-8.0); HEMATOCRIT 23.7 % (42-54); LYMPHOCYTES % (AUTO) 12.7 % (21.0-51.0); MEAN CORPUSCULAR HEMOGLOBIN 29.1 pg (27.0-33.0); MEAN CORPUSCULAR HGB CONC 31.2 g/dL (32.0-36.0); MEAN CORPUSCULAR VOLUME 93.3 fL (79-99); MONOCYTES % (AUTO) 5.2 % (3.0-13.0); NEUTROPHILS % (AUTO) 77.1 % (40.0-77.0); PLATELET COUNT (AUTO) 84 K/uL (130-400); RED BLOOD CELL COUNT(AUTO) 2.54 MIL/uL (4.50-6.20); RED CELL DISTRIBUTION WIDTH 14.1 % (11.0-15.5); WHITE BLOOD COUNT (AUTO) 4.3 K/uL (4.8-10.8)
[2020-03-15 05:01] LABS: ALBUMIN 1.5 g/dL (3.5-5.0); BILIRUBIN,TOTAL 1.2 mg/dL (0.2-1.0); CREATININE 1.1 mg/dL (0.5-1.5); MAGNESIUM 2.5 mg/dL (1.80-2.40); POTASSIUM 4.9 mmol/L (3.5-5.1); TOTAL PROTEIN, SERUM 4.8 g/dL (6.0-8.3)
[2020-03-15] MEDS: ZINC SULFATE 220 CAPSULE PO SCH (08:37)
[2020-03-15] MEDS: MIDODRINE HCL 5 MG TABLET PO SCH ×3 (08:37→21:03)
[2020-03-15] MEDS: ASCORBIC ACID 500 MG TAB PO SCH (08:37)
[2020-03-15] MEDS: IRON SUCROSE COMPLEX 100 MG in 0.9%NACL 50ML 50 ML IV SCH (08:38)
[2020-03-15] MEDS: DIGOXIN 250 MCG/ML 2ML AMP IV SCH (08:38)
[2020-03-15] MEDS: DEXMEDETOMIDINE HCL 400 MCG in 0.9%NACL 100ML 100 ML IV SCH ×2 (08:40→18:58)
[2020-03-15 08:57] LABS: CRP QUANTITATIVE 159.9 mg/L (0.00-9.0)
[2020-03-15] MEDS: PANTOPRAZOLE 40 MG/VIAL IVP SCH ×2 (10:38→21:03)
[2020-03-15] MEDS ORDERED: EPOETIN ALFA-EPBX (NON-ESRD) 10,000 UNIT/ML VIAL SQ SCH (11:15)
[2020-03-15] MEDS: ENOXAPARIN SODIUM 40 MG/0.4 ML SYRINGE SQ SCH (11:22)
[2020-03-15] MEDS: CLINIMIX-E 4.25AA/D5+LYT1000ML 1,000 ML IV NR (15:00)
[2020-03-15] MEDS: MIDAZOLAM 100MG-0.9% NS 100ML 50 ML IV PRN (15:51)
[2020-03-15] MEDS: FENTANYL 2500MCG+NS 250ML 250 ML IV SCH (15:52)
[2020-03-15] MEDS ORDERED: ALBUTEROL INHALER 90MCG/INH IH SCH (18:00)
[2020-03-15] MEDS: ACETYLCYSTEINE 10% 100MG/ML 4ML VIAL IH SCH ×2 (18:00→23:49)
[2020-03-15] MEDS: ALBUTEROL 0.083% 2.5 MG/3 ML INH IH SCH (23:48)
[2020-03-16] VITALS (56 sets, daily range): BP systolic 80–133; BP diastolic 29–74
[2020-03-16] MEDS: ARTIFICAL TEARS SOL 15 ML OD SCH ×6 (01:10→20:27)
[2020-03-16] MEDS: DILTIAZEM 60MG TAB PO SCH ×4 (01:10→17:57)
[2020-03-16] MEDS: METOCLOPRAMIDE 10 MG/2 ML VIAL IVP SCH ×4 (01:10→16:48)
[2020-03-16] MEDS: INSULIN HUMULIN R 100 UNIT/ML 3ML SQ SCH ×4 (01:11→17:56)
[2020-03-16] MEDS: DEXMEDETOMIDINE HCL 400 MCG in 0.9%NACL 100ML 100 ML IV SCH ×2 (01:13→16:51)
[2020-03-16 03:40] LABS: ABG BASE EXCESS 1.2 mmol/L (-2.0-3.0); ABG HCO3 25.1 mmol/L (21.0-28.0); ABG PCO2 37 mmHg (35-48)
[2020-03-16] MEDS: NYSTATIN 100000 UNIT/ML 5ML UDCUP PO SCH ×3 (04:31→18:14)
[2020-03-16 06:30] LABS: EOSINOPHILS % (AUTO) 4.7 % (0.0-8.0); HEMATOCRIT 23.9 % (42-54); MEAN CORPUSCULAR HEMOGLOBIN 29.1 pg (27.0-33.0); MEAN CORPUSCULAR VOLUME 94.1 fL (79-99); MONOCYTES % (AUTO) 4.7 % (3.0-13.0); PLATELET COUNT (AUTO) 101 K/uL (130-400); RED BLOOD CELL COUNT(AUTO) 2.54 MIL/uL (4.50-6.20); RED CELL DISTRIBUTION WIDTH 14.8 % (11.0-15.5); WHITE BLOOD COUNT (AUTO) 4.9 K/uL (4.8-10.8)
[2020-03-16 06:43] LABS: ALBUMIN 1.4 g/dL (3.5-5.0); MAGNESIUM 2.3 mg/dL (1.80-2.40); PHOSPHORUS 3.6 mg/dL (2.5-4.9); POTASSIUM 4.8 mmol/L (3.5-5.1); TOTAL PROTEIN, SERUM 4.9 g/dL (6.0-8.3)
[2020-03-16 06:49] LABS: INR 1.21 (0.85-1.15); PROTHROMBIN TIME 12.7 SEC (9.6-11.6)
[2020-03-16 06:50] LABS: PARTIAL THROMBOPLASTIN TIME 29.6 SEC (26.3-35.5)
[2020-03-16] MEDS: ALBUTEROL 0.083% 2.5 MG/3 ML INH IH SCH ×3 (07:07→18:28)
[2020-03-16] MEDS: ACETYLCYSTEINE 10% 100MG/ML 4ML VIAL IH SCH ×3 (07:07→18:28)
[2020-03-16] MEDS ORDERED: ROCURONIUM 10MG/1ML SYR 10 MG/ML ML ONE (07:40)
[2020-03-16] MEDS ORDERED: MIDAZOLAM HCL 1 MG/ML 2ML VIAL ONE (07:43)
[2020-03-16] MEDS ORDERED: LIDOCAINE HCL 1% 20 ML VIAL ONE (07:49)
[2020-03-16] MEDS ORDERED: EPINEPHRINE PF 1MG AMP ONE (07:50)
[2020-03-16] MEDS ORDERED: EPHEDRINE SULFATE 50 MG/ML AMPULE ONE (07:56)
[2020-03-16] MEDS ORDERED: FENTANYL CITRATE PF 50 MCG/1 ML 2ML VIAL ONE (07:59)
[2020-03-16] MEDS: DIGOXIN 250 MCG/ML 2ML AMP IV SCH (08:55)
[2020-03-16] MEDS: IRON SUCROSE COMPLEX 100 MG in 0.9%NACL 50ML 50 ML IV SCH (08:56)
[2020-03-16] MEDS: PANTOPRAZOLE 40 MG/VIAL IVP SCH ×2 (08:56→20:36)
[2020-03-16] MEDS: ASCORBIC ACID 500 MG TAB PO SCH (08:57)
[2020-03-16] MEDS: MIDODRINE HCL 5 MG TABLET PO SCH ×3 (08:57→20:36)
[2020-03-16] MEDS: ZINC SULFATE 220 CAPSULE PO SCH (08:57)
[2020-03-16] MEDS: PROPOFOL 1000 MG/100 ML 100 ML IV PRN ×2 (10:06→16:49)
[2020-03-16] MEDS ORDERED: PHENYLEPHRINE HCL 100 MG in 0.9% NACL 250ML 250 ML IV SCH (18:15)
[2020-03-17] VITALS (70 sets, daily range): BP systolic 66–158; BP diastolic 30–93
[2020-03-17] MEDS: ARTIFICAL TEARS SOL 15 ML OD SCH ×6 (00:39→21:35)
[2020-03-17] MEDS: DILTIAZEM 60MG TAB PO SCH ×4 (00:39→17:34)
[2020-03-17] MEDS: METOCLOPRAMIDE 10 MG/2 ML VIAL IVP SCH ×4 (00:39→17:34)
[2020-03-17 03:13] LABS: ABG OXYGEN SATURATION 96.6 % (95.0-99.0); ABG PCO2 34 mmHg (35-48)
[2020-03-17] MEDS: NYSTATIN 100000 UNIT/ML 5ML UDCUP PO SCH ×3 (03:51→17:35)
[2020-03-17] MEDS: PROPOFOL 1000 MG/100 ML 100 ML IV PRN (03:52)
[2020-03-17 04:38] LABS: BASOPHILS % (AUTO) 0.2 % (0.0-5.0); EOSINOPHILS % (AUTO) 1.6 % (0.0-8.0); HEMATOCRIT 24.9 % (42-54); LYMPHOCYTES % (AUTO) 7.6 % (21.0-51.0); MEAN CORPUSCULAR HEMOGLOBIN 28.5 pg (27.0-33.0); MEAN CORPUSCULAR HGB CONC 30.5 g/dL (32.0-36.0); MEAN CORPUSCULAR VOLUME 93.3 fL (79-99); MONOCYTES % (AUTO) 4.9 % (3.0-13.0); NEUTROPHILS % (AUTO) 84.8 % (40.0-77.0); PLATELET COUNT (AUTO) 172 K/uL (130-400); RED BLOOD CELL COUNT(AUTO) 2.67 MIL/uL (4.50-6.20); RED CELL DISTRIBUTION WIDTH 14.9 % (11.0-15.5); WHITE BLOOD COUNT (AUTO) 5.6 K/uL (4.8-10.8)
[2020-03-17 04:59] LABS: ALBUMIN 1.4 g/dL (3.5-5.0); BILIRUBIN,TOTAL 1.4 mg/dL (0.2-1.0); MAGNESIUM 2.3 mg/dL (1.80-2.40); PHOSPHORUS 3.8 mg/dL (2.5-4.9); POTASSIUM 4.9 mmol/L (3.5-5.1); TOTAL PROTEIN, SERUM 5.4 g/dL (6.0-8.3)
[2020-03-17] MEDS: INSULIN HUMULIN R 100 UNIT/ML 3ML SQ SCH ×4 (06:22→17:48)
[2020-03-17] MEDS: ACETYLCYSTEINE 10% 100MG/ML 4ML VIAL IH SCH ×3 (09:04→12:15)
[2020-03-17] MEDS: PANTOPRAZOLE 40 MG/VIAL IVP SCH ×2 (09:45→21:36)
[2020-03-17] MEDS: ZINC SULFATE 220 CAPSULE PO SCH (09:46)
[2020-03-17] MEDS: DIGOXIN 250 MCG/ML 2ML AMP IV SCH (09:46)
[2020-03-17] MEDS: IRON SUCROSE COMPLEX 100 MG in 0.9%NACL 50ML 50 ML IV SCH (09:46)
[2020-03-17] MEDS: ASCORBIC ACID 500 MG TAB PO SCH (09:46)
[2020-03-17 10:08] LABS: ABG BASE EXCESS 1.6 mmol/L (-2.0-3.0); ABG HCO3 24.4 mmol/L (21.0-28.0); ABG OXYGEN SATURATION 92.5 % (95.0-99.0); ABG PCO2 33 mmHg (35-48)
[2020-03-17] MEDS: DEXMEDETOMIDINE HCL 400 MCG in 0.9%NACL 100ML 100 ML IV SCH ×3 (10:25→18:46)
[2020-03-17] MEDS: ALBUTEROL 0.083% 2.5 MG/3 ML INH IH SCH ×2 (12:15)
[2020-03-17] MEDS ORDERED: NOREPINEPHRINE BITARTRATE 8 MG in 0.9% NACL 250ML 250 ML IV SCH (14:30)
[2020-03-17] MEDS: FUROSEMIDE 20MG VIAL IVP SCH (21:36)
[2020-03-17] MEDS: ENOXAPARIN SODIUM 40 MG/0.4 ML SYRINGE SQ SCH ×2 (21:37→21:44)
[2020-03-18] VITALS (55 sets, daily range): BP systolic 74–158; BP diastolic 33–93
[2020-03-18] MEDS: METOCLOPRAMIDE 10 MG/2 ML VIAL IVP SCH ×4 (00:55→17:19)
[2020-03-18] MEDS: DILTIAZEM 60MG TAB PO SCH ×4 (00:55→17:19)
[2020-03-18] MEDS: ARTIFICAL TEARS SOL 15 ML OD SCH ×6 (00:56→21:05)
[2020-03-18] MEDS: INSULIN HUMULIN R 100 UNIT/ML 3ML SQ SCH ×4 (00:57→18:08)
[2020-03-18 03:30] LABS: ABG BASE EXCESS 0.8 mmol/L (-2.0-3.0); ABG HCO3 23.7 mmol/L (21.0-28.0); ABG OXYGEN SATURATION 92.7 % (95.0-99.0); ABG PCO2 33 mmHg (35-48)
[2020-03-18] MEDS: NYSTATIN 100000 UNIT/ML 5ML UDCUP PO SCH ×3 (03:42→18:09)
[2020-03-18] MEDS: DEXMEDETOMIDINE HCL 400 MCG in 0.9%NACL 100ML 100 ML IV SCH ×3 (03:52→14:20)
[2020-03-18 05:03] LABS: BASOPHILS % (AUTO) 0.2 % (0.0-5.0); EOSINOPHILS % (AUTO) 1.8 % (0.0-8.0); HEMATOCRIT 26.7 % (42-54); LYMPHOCYTES % (AUTO) 5.2 % (21.0-51.0); MEAN CORPUSCULAR HEMOGLOBIN 28.4 pg (27.0-33.0); MEAN CORPUSCULAR HGB CONC 31.1 g/dL (32.0-36.0); MEAN CORPUSCULAR VOLUME 91.4 fL (79-99); PLATELET COUNT (AUTO) 167 K/uL (130-400); RED BLOOD CELL COUNT(AUTO) 2.92 MIL/uL (4.50-6.20); RED CELL DISTRIBUTION WIDTH 15.2 % (11.0-15.5)
[2020-03-18 05:35] LABS: INR 1.22 (0.85-1.15); PROTHROMBIN TIME 12.8 SEC (9.6-11.6)
[2020-03-18 05:36] LABS: PARTIAL THROMBOPLASTIN TIME 24.4 SEC (26.3-35.5)
[2020-03-18 05:42] LABS: MAGNESIUM 2.3 mg/dL (1.80-2.40); POTASSIUM 3.9 mmol/L (3.5-5.1)
[2020-03-18 06:27] LABS: CRP QUANTITATIVE 219.2 mg/L (0.00-9.0)
[2020-03-18] MEDS: POLYETHYLENE GLYCOL 3350 17 GM POWD.PACK PO SCH ×2 (09:00→11:53)
[2020-03-18] MEDS: IRON SUCROSE COMPLEX 100 MG in 0.9%NACL 50ML 50 ML IV SCH (09:00)
[2020-03-18] MEDS ORDERED: DEXAMETHASONE SOD PHOSPHATE 4 MG/ML 1ML VIAL IV SCH (09:00)
[2020-03-18] MEDS: FUROSEMIDE 20MG VIAL IVP SCH ×2 (09:00→21:07)
[2020-03-18] MEDS ORDERED: LIDOCAINE HCL 1% 20 ML VIAL ONE (10:36)
[2020-03-18] MEDS ORDERED: MIDAZOLAM HCL 1 MG/ML 2ML VIAL ONE (10:36)
[2020-03-18] MEDS ORDERED: PROPOFOL 10 MG/ML 20ML VIAL IV ONE (10:36)
[2020-03-18] MEDS ORDERED: PHENYLEPHRINE HCL 10 MG/ML 1ML VIAL IV ONE (10:37)
[2020-03-18] MEDS ORDERED: EPINEPHRINE PF 1MG AMP ONE (10:37)
[2020-03-18] MEDS ORDERED: CEFAZOLIN SODIUM 1 GM VIAL ONE ×2 (10:49→10:50)
[2020-03-18] MEDS ORDERED: 0.9% NACL 250ML 250 ML IV ONE (10:56)
[2020-03-18] MEDS ORDERED: CEFAZOLIN SODIUM 1 GM VIAL IVP SCH (11:00)
[2020-03-18] MEDS: SENNOSIDES 8.6 MG TABLET GT SCH (11:52)
[2020-03-18] MEDS: DIGOXIN 250 MCG/ML 2ML AMP IV SCH (11:52)
[2020-03-18] MEDS: ZINC SULFATE 220 CAPSULE PO SCH (11:53)
[2020-03-18] MEDS: DOCUSATE NA 100MG/10ML UDCUP PO SCH (11:53)
[2020-03-18] MEDS: ASCORBIC ACID 500 MG TAB PO SCH (11:53)
[2020-03-18] MEDS: PANTOPRAZOLE 40 MG/VIAL IVP SCH ×2 (11:58→21:07)
[2020-03-18] MEDS: MIDODRINE HCL 5 MG TABLET PEG SCH ×2 (13:02→21:07)
[2020-03-18] MEDS: MEROPENEM 1 GM VIAL IVP SCH ×2 (13:39→21:06)
[2020-03-18] MEDS: LINEZOLID 600 MG/ISO-OSM 300 ML IV SCH (13:40)
[2020-03-18] MEDS: FENTANYL 2500MCG+NS 250ML 250 ML IV SCH (14:06)
[2020-03-19] VITALS (33 sets, daily range): BP systolic 75–148; BP diastolic 30–88
[2020-03-19] MEDS: LINEZOLID 600 MG/ISO-OSM 300 ML IV SCH ×2 (00:45→12:37)
[2020-03-19] MEDS: DILTIAZEM 60MG TAB PO SCH ×4 (01:03→17:17)
[2020-03-19] MEDS: INSULIN HUMULIN R 100 UNIT/ML 3ML SQ SCH ×4 (01:04→18:05)
[2020-03-19] MEDS: METOCLOPRAMIDE 10 MG/2 ML VIAL IVP SCH ×4 (01:04→17:18)
[2020-03-19] MEDS: ARTIFICAL TEARS SOL 15 ML OD SCH ×6 (01:04→20:00)
[2020-03-19] MEDS: NYSTATIN 100000 UNIT/ML 5ML UDCUP PO SCH ×3 (03:28→18:03)
[2020-03-19 03:53] LABS: ABG BASE EXCESS 2.9 mmol/L (-2.0-3.0); ABG HCO3 23.1 mmol/L (21.0-28.0); ABG OXYGEN SATURATION 97.6 % (95.0-99.0); ABG PCO2 25 mmHg (35-48)
[2020-03-19 04:47] LABS: BASOPHILS % (AUTO) 0.2 % (0.0-5.0); EOSINOPHILS % (AUTO) 0.2 % (0.0-8.0); HEMATOCRIT 25.1 % (42-54); LYMPHOCYTES % (AUTO) 7.3 % (21.0-51.0); MEAN CORPUSCULAR HEMOGLOBIN 28.7 pg (27.0-33.0); MEAN CORPUSCULAR HGB CONC 31.1 g/dL (32.0-36.0); MEAN CORPUSCULAR VOLUME 92.3 fL (79-99); MONOCYTES % (AUTO) 3.4 % (3.0-13.0); NEUTROPHILS % (AUTO) 88.7 % (40.0-77.0); PLATELET COUNT (AUTO) 224 K/uL (130-400); RED BLOOD CELL COUNT(AUTO) 2.72 MIL/uL (4.50-6.20); RED CELL DISTRIBUTION WIDTH 15.1 % (11.0-15.5); WHITE BLOOD COUNT (AUTO) 6.4 K/uL (4.8-10.8)
[2020-03-19 04:56] LABS: CREATININE 0.9 mg/dL (0.5-1.5); POTASSIUM 3.8 mmol/L (3.5-5.1)
[2020-03-19 05:20] LABS: CRP QUANTITATIVE 205.4 mg/L (0.00-9.0)
[2020-03-19] MEDS: MEROPENEM 1 GM VIAL IVP SCH ×3 (05:29→22:59)
[2020-03-19] MEDS: DOCUSATE NA 100MG/10ML UDCUP PO SCH (08:24)
[2020-03-19] MEDS: ASCORBIC ACID 500 MG TAB PO SCH (08:24)
[2020-03-19] MEDS: MIDODRINE HCL 5 MG TABLET PEG SCH ×3 (08:24→22:58)
[2020-03-19] MEDS: SENNOSIDES 8.6 MG TABLET GT SCH (08:24)
[2020-03-19] MEDS: DIGOXIN 250 MCG/ML 2ML AMP IV SCH (08:25)
[2020-03-19] MEDS: POLYETHYLENE GLYCOL 3350 17 GM POWD.PACK PO SCH ×2 (08:25→08:26)
[2020-03-19] MEDS: PANTOPRAZOLE 40 MG/VIAL IVP SCH ×2 (08:25→22:56)
[2020-03-19] MEDS: ZINC SULFATE 220 CAPSULE PO SCH (08:26)
[2020-03-19] MEDS: FUROSEMIDE 20MG VIAL IVP SCH ×2 (08:26→22:59)
[2020-03-19] MEDS: DEXAMETHASONE SOD PHOSPHATE 4 MG/ML 1ML VIAL IV SCH (08:26)
[2020-03-19] MEDS: ENOXAPARIN SODIUM 40 MG/0.4 ML SYRINGE SQ SCH ×2 (08:27→23:00)
[2020-03-19] MEDS: IRON SUCROSE COMPLEX 100 MG in 0.9%NACL 50ML 50 ML IV SCH (08:27)
[2020-03-19] MEDS ORDERED: DEXAMETHASONE SOD PHOSPHATE 4 MG/ML 1ML VIAL IV SCH (09:00)
[2020-03-19] MEDS: DEXMEDETOMIDINE HCL 400 MCG in 0.9%NACL 100ML 100 ML IV SCH ×3 (10:59→23:01)
[2020-03-20] VITALS (35 sets, daily range): BP systolic 99–154; BP diastolic 36–84
[2020-03-20] MEDS: METOCLOPRAMIDE 10 MG/2 ML VIAL IVP SCH ×4 (01:24→17:29)
[2020-03-20] MEDS: LINEZOLID 600 MG/ISO-OSM 300 ML IV SCH ×2 (01:25→11:18)
[2020-03-20] MEDS: DILTIAZEM 60MG TAB PO SCH ×4 (01:25→17:30)
[2020-03-20] MEDS: INSULIN HUMULIN R 100 UNIT/ML 3ML SQ SCH ×4 (01:30→18:05)
[2020-03-20] MEDS: NYSTATIN 100000 UNIT/ML 5ML UDCUP PO SCH ×3 (03:35→17:30)
[2020-03-20 03:44] LABS: ABG HCO3 26.2 mmol/L (21.0-28.0); ABG OXYGEN SATURATION 94.9 % (95.0-99.0); ABG PCO2 32 mmHg (35-48)
[2020-03-20] MEDS: ARTIFICAL TEARS SOL 15 ML OD SCH ×6 (04:00→20:00)
[2020-03-20 04:30] LABS: EOSINOPHILS % (AUTO) 0.4 % (0.0-8.0); HEMATOCRIT 22.9 % (42-54); LYMPHOCYTES % (AUTO) 7.9 % (21.0-51.0); MEAN CORPUSCULAR HEMOGLOBIN 28.7 pg (27.0-33.0); MEAN CORPUSCULAR HGB CONC 31.9 g/dL (32.0-36.0); MEAN CORPUSCULAR VOLUME 90.2 fL (79-99); MONOCYTES % (AUTO) 4.2 % (3.0-13.0); PLATELET COUNT (AUTO) 244 K/uL (130-400); RED BLOOD CELL COUNT(AUTO) 2.54 MIL/uL (4.50-6.20); RED CELL DISTRIBUTION WIDTH 15.2 % (11.0-15.5); WHITE BLOOD COUNT (AUTO) 7.6 K/uL (4.8-10.8)
[2020-03-20 04:45] LABS: CREATININE 0.9 mg/dL (0.5-1.5); POTASSIUM 3.7 mmol/L (3.5-5.1)
[2020-03-20] MEDS: DEXMEDETOMIDINE HCL 400 MCG in 0.9%NACL 100ML 100 ML IV SCH ×4 (05:31→22:18)
[2020-03-20] MEDS: MEROPENEM 1 GM VIAL IVP SCH ×3 (05:32→22:14)
[2020-03-20] MEDS: SENNOSIDES 8.6 MG TABLET GT SCH (08:36)
[2020-03-20] MEDS: DIGOXIN 250 MCG/ML 2ML AMP IV SCH (08:37)
[2020-03-20] MEDS: DEXAMETHASONE SOD PHOSPHATE 4 MG/ML 1ML VIAL IV SCH (08:37)
[2020-03-20] MEDS: IRON SUCROSE COMPLEX 100 MG in 0.9%NACL 50ML 50 ML IV SCH (08:37)
[2020-03-20] MEDS: FUROSEMIDE 20MG VIAL IVP SCH ×2 (08:38→22:15)
[2020-03-20] MEDS: DOCUSATE NA 100MG/10ML UDCUP PO SCH (08:38)
[2020-03-20] MEDS: POLYETHYLENE GLYCOL 3350 17 GM POWD.PACK PO SCH (08:38)
[2020-03-20] MEDS: ZINC SULFATE 220 CAPSULE PO SCH (08:38)
[2020-03-20] MEDS: ASCORBIC ACID 500 MG TAB PO SCH (08:38)
[2020-03-20] MEDS: PANTOPRAZOLE 40 MG/VIAL IVP SCH ×2 (08:39→22:14)
[2020-03-20] MEDS: ENOXAPARIN SODIUM 40 MG/0.4 ML SYRINGE SQ SCH ×2 (08:39→22:16)
[2020-03-20] MEDS: MIDODRINE HCL 5 MG TABLET PEG SCH ×3 (08:39→22:15)
[2020-03-20] MEDS ORDERED: INSULIN GLARGINE 100 UNITS/ML 10 ML VIAL SQ SCH (09:45)
[2020-03-20] MEDS: HONEY 1 APPL/ML TUBE TP SCH (21:00)
[2020-03-21] VITALS (47 sets, daily range): BP systolic 88–148; BP diastolic 37–93
[2020-03-21] MEDS: LINEZOLID 600 MG/ISO-OSM 300 ML IV SCH (00:41)
[2020-03-21] MEDS: METOCLOPRAMIDE 10 MG/2 ML VIAL IVP SCH ×4 (00:41→18:06)
[2020-03-21] MEDS: DILTIAZEM 60MG TAB PO SCH ×4 (00:42→18:03)
[2020-03-21] MEDS: INSULIN HUMULIN R 100 UNIT/ML 3ML SQ SCH ×4 (00:45→18:04)
[2020-03-21] MEDS: NYSTATIN 100000 UNIT/ML 5ML UDCUP PO SCH ×2 (03:04→11:41)
[2020-03-21] MEDS: FENTANYL 2500MCG+NS 250ML 250 ML IV SCH (03:06)
[2020-03-21 03:53] LABS: ABG BASE EXCESS 8.6 mmol/L (-2.0-3.0); ABG HCO3 30.3 mmol/L (21.0-28.0); ABG OXYGEN SATURATION 95.9 % (95.0-99.0); ABG PCO2 33 mmHg (35-48)
[2020-03-21] MEDS: ARTIFICAL TEARS SOL 15 ML OD SCH ×6 (04:00→20:00)
[2020-03-21 05:21] LABS: EOSINOPHILS % (AUTO) 0.3 % (0.0-8.0); HEMATOCRIT 26.2 % (42-54); LYMPHOCYTES % (AUTO) 8.5 % (21.0-51.0); MEAN CORPUSCULAR HEMOGLOBIN 28.6 pg (27.0-33.0); MEAN CORPUSCULAR HGB CONC 32.1 g/dL (32.0-36.0); MEAN CORPUSCULAR VOLUME 89.1 fL (79-99); MONOCYTES % (AUTO) 4.7 % (3.0-13.0); NEUTROPHILS % (AUTO) 85.7 % (40.0-77.0); PLATELET COUNT (AUTO) 252 K/uL (130-400); RED BLOOD CELL COUNT(AUTO) 2.94 MIL/uL (4.50-6.20); RED CELL DISTRIBUTION WIDTH 15.5 % (11.0-15.5)
[2020-03-21 05:55] LABS: ALBUMIN 1.4 g/dL (3.5-5.0); BILIRUBIN,DIRECT 0.4 mg/dL (0.0-0.3); BILIRUBIN,TOTAL 0.7 mg/dL (0.2-1.0); CREATININE 0.9 mg/dL (0.5-1.5); CRP QUANTITATIVE 53.6 mg/L (0.00-9.0); POTASSIUM 3.5 mmol/L (3.5-5.1)
[2020-03-21] MEDS: MEROPENEM 1 GM VIAL IVP SCH ×3 (06:02→21:47)
[2020-03-21] MEDS: DEXMEDETOMIDINE HCL 400 MCG in 0.9%NACL 100ML 100 ML IV SCH ×3 (06:25→19:41)
[2020-03-21 07:32] LABS: CREATININE 0.9 mg/dL (0.5-1.5); POTASSIUM 3.5 mmol/L (3.5-5.1)
[2020-03-21] MEDS: DOCUSATE NA 100MG/10ML UDCUP PO SCH (11:39)
[2020-03-21] MEDS: PANTOPRAZOLE 40 MG/VIAL IVP SCH ×2 (11:39→21:48)
[2020-03-21] MEDS: DEXAMETHASONE SOD PHOSPHATE 4 MG/ML 1ML VIAL IV SCH (11:40)
[2020-03-21] MEDS: FUROSEMIDE 20MG VIAL IVP SCH ×2 (11:41→21:48)
[2020-03-21] MEDS: DIGOXIN 250 MCG/ML 2ML AMP IV SCH (11:41)
[2020-03-21] MEDS: ENOXAPARIN SODIUM 40 MG/0.4 ML SYRINGE SQ SCH ×2 (11:43→21:50)
[2020-03-21] MEDS: ASCORBIC ACID 500 MG TAB PO SCH (11:43)
[2020-03-21] MEDS: HONEY 1 APPL/ML TUBE TP SCH ×2 (11:45→21:00)
[2020-03-21] MEDS: MIDODRINE HCL 5 MG TABLET PEG SCH ×3 (11:56→21:48)
[2020-03-21] MEDS: SENNOSIDES 8.6 MG TABLET GT SCH (11:56)
[2020-03-21] MEDS: POLYETHYLENE GLYCOL 3350 17 GM POWD.PACK PO SCH (11:56)
[2020-03-21] MEDS: ZINC SULFATE 220 CAPSULE PO SCH (11:56)
[2020-03-21] MEDS ORDERED: DILTIAZEM 50MG VIAL IV SCH (12:37)
[2020-03-21] MEDS: DILTIAZEM 125 MG/25 ML INJ 125 MG in 0.9%NACL 100ML 100 ML IV SCH (12:52)
[2020-03-21] MEDS ORDERED: METOPROLOL TARTRATE 1 MG/ML 5ML VIAL IV SCH (12:59)
[2020-03-21] MEDS ORDERED: POTASSIUM CHLORIDE 20MEQ/10ML 10 MEQ in 0.9%NACL 50ML 50 ML IV SCH (13:00)
[2020-03-21] MEDS ORDERED: METOPROLOL TARTRATE 1 MG/ML 5ML VIAL IV ONE (13:13)
[2020-03-21] MEDS ORDERED: POTASSIUM CHLORIDE 20MEQ/100ML 100 ML IV SCH (13:45)
[2020-03-22] VITALS (37 sets, daily range): BP systolic 79–157; BP diastolic 37–84
[2020-03-22] MEDS: METOCLOPRAMIDE 10 MG/2 ML VIAL IVP SCH ×4 (00:33→17:43)
[2020-03-22] MEDS: PROPOFOL 1000 MG/100 ML IV SCH (00:34)
[2020-03-22] MEDS: DEXMEDETOMIDINE HCL 400 MCG in 0.9%NACL 100ML 100 ML IV SCH ×4 (02:21→16:37)
[2020-03-22 03:11] LABS: ABG HCO3 28.7 mmol/L (21.0-28.0); ABG OXYGEN SATURATION 98.6 % (95.0-99.0); ABG PCO2 39 mmHg (35-48)
[2020-03-22] MEDS: ARTIFICAL TEARS SOL 15 ML OD SCH ×6 (04:00→20:00)
[2020-03-22] MEDS: MEROPENEM 1 GM VIAL IVP SCH ×2 (04:09→12:46)
[2020-03-22] MEDS: DILTIAZEM 60MG TAB PO SCH ×4 (05:25→17:43)
[2020-03-22] MEDS: INSULIN HUMULIN R 100 UNIT/ML 3ML SQ SCH ×4 (05:27→17:47)
[2020-03-22 05:54] LABS: BASOPHILS % (AUTO) 0.1 % (0.0-5.0); EOSINOPHILS % (AUTO) 0.1 % (0.0-8.0); HEMATOCRIT 27.3 % (42-54); LYMPHOCYTES % (AUTO) 12.9 % (21.0-51.0); MEAN CORPUSCULAR HEMOGLOBIN 28.7 pg (27.0-33.0); MEAN CORPUSCULAR HGB CONC 31.1 g/dL (32.0-36.0); MEAN CORPUSCULAR VOLUME 92.2 fL (79-99); MONOCYTES % (AUTO) 3.9 % (3.0-13.0); NEUTROPHILS % (AUTO) 82.1 % (40.0-77.0); PLATELET COUNT (AUTO) 399 K/uL (130-400); RED BLOOD CELL COUNT(AUTO) 2.96 MIL/uL (4.50-6.20); RED CELL DISTRIBUTION WIDTH 15.9 % (11.0-15.5); WHITE BLOOD COUNT (AUTO) 7.6 K/uL (4.8-10.8)
[2020-03-22 06:05] LABS: ALBUMIN 1.6 g/dL (3.5-5.0); BILIRUBIN,DIRECT 0.5 mg/dL (0.0-0.3); BILIRUBIN,TOTAL 0.8 mg/dL (0.2-1.0); CREATININE 0.8 mg/dL (0.5-1.5); POTASSIUM 4.2 mmol/L (3.5-5.1); TOTAL PROTEIN, SERUM 5.5 g/dL (6.0-8.3)
[2020-03-22] MEDS: ASCORBIC ACID 500 MG TAB PO SCH (09:00)
[2020-03-22] MEDS: POLYETHYLENE GLYCOL 3350 17 GM POWD.PACK PO SCH (09:00)
[2020-03-22] MEDS: DIGOXIN 250 MCG/ML 2ML AMP IV SCH (09:00)
[2020-03-22] MEDS: HONEY 1 APPL/ML TUBE TP SCH ×2 (09:00→21:00)
[2020-03-22] MEDS: DOCUSATE NA 100MG/10ML UDCUP PO SCH (09:00)
[2020-03-22] MEDS: PANTOPRAZOLE 40 MG/VIAL IVP SCH (09:00)
[2020-03-22] MEDS: SENNOSIDES 8.6 MG TABLET GT SCH (09:00)
[2020-03-22] MEDS: ZINC SULFATE 220 CAPSULE PO SCH (09:00)
[2020-03-22] MEDS: DEXAMETHASONE SOD PHOSPHATE 4 MG/ML 1ML VIAL IV SCH (09:00)
[2020-03-22] MEDS: MIDODRINE HCL 5 MG TABLET PEG SCH ×2 (09:00→14:00)
[2020-03-22] MEDS: FUROSEMIDE 20MG VIAL IVP SCH (09:00)
[2020-03-22] MEDS: ENOXAPARIN SODIUM 40 MG/0.4 ML SYRINGE SQ SCH (09:57)
[2020-03-22] MEDS: NYSTATIN 100000 UNIT/ML 5ML UDCUP PO SCH (11:59)
[2020-03-22] MEDS: FENTANYL 2500MCG+NS 250ML 250 ML IV SCH (17:45)
[2020-03-23] VITALS (32 sets, daily range): BP systolic 83–165; BP diastolic 36–86
[2020-03-23] MEDS: DILTIAZEM 60MG TAB PO SCH ×3 (00:40→11:43)
[2020-03-23] MEDS: INSULIN HUMULIN R 100 UNIT/ML 3ML SQ SCH ×4 (00:41→18:03)
[2020-03-23] MEDS: METOCLOPRAMIDE 10 MG/2 ML VIAL IVP SCH ×4 (00:41→18:00)
[2020-03-23] MEDS: PANTOPRAZOLE 40 MG/VIAL IVP SCH ×3 (00:42→22:48)
[2020-03-23] MEDS: FUROSEMIDE 20MG VIAL IVP SCH ×3 (00:42→22:50)
[2020-03-23] MEDS: MIDODRINE HCL 5 MG TABLET PEG SCH ×4 (00:43→22:50)
[2020-03-23] MEDS: NYSTATIN 100000 UNIT/ML 5ML UDCUP PO SCH ×4 (00:43→22:49)
[2020-03-23] MEDS: ENOXAPARIN SODIUM 40 MG/0.4 ML SYRINGE SQ SCH ×3 (00:43→22:50)
[2020-03-23] MEDS: MEROPENEM 1 GM VIAL IVP SCH ×4 (00:44→22:48)
[2020-03-23] MEDS: DEXMEDETOMIDINE HCL 400 MCG in 0.9%NACL 100ML 100 ML IV SCH ×4 (01:31→13:26)
[2020-03-23] MEDS: PROPOFOL 1000 MG/100 ML IV SCH ×2 (01:36→15:22)
[2020-03-23 03:37] LABS: ABG BASE EXCESS 4.2 mmol/L (-2.0-3.0); ABG HCO3 26.9 mmol/L (21.0-28.0); ABG PCO2 34 mmHg (35-48)
[2020-03-23] MEDS: ARTIFICAL TEARS SOL 15 ML OD SCH ×6 (04:00→20:00)
[2020-03-23 08:05] LABS: HEMATOCRIT 23.5 % (42-54); LYMPHOCYTES % (AUTO) 11.8 % (21.0-51.0); MEAN CORPUSCULAR HEMOGLOBIN 28.7 pg (27.0-33.0); MEAN CORPUSCULAR HGB CONC 31.1 g/dL (32.0-36.0); MEAN CORPUSCULAR VOLUME 92.5 fL (79-99); MONOCYTES % (AUTO) 6.8 % (3.0-13.0); NUCLEATED RED BLOOD CELLS 0.3 % (0.0-0.19); PLATELET COUNT (AUTO) 221 K/uL (130-400); RED BLOOD CELL COUNT(AUTO) 2.54 MIL/uL (4.50-6.20); RED CELL DISTRIBUTION WIDTH 16.1 % (11.0-15.5); WHITE BLOOD COUNT (AUTO) 6.4 K/uL (4.8-10.8)
[2020-03-23 08:08] LABS: CREATININE 0.7 mg/dL (0.5-1.5); POTASSIUM 4.5 mmol/L (3.5-5.1)
[2020-03-23] MEDS: DOCUSATE NA 100MG/10ML UDCUP PO SCH (08:36)
[2020-03-23] MEDS: POLYETHYLENE GLYCOL 3350 17 GM POWD.PACK PO SCH (08:36)
[2020-03-23] MEDS: ASCORBIC ACID 500 MG TAB PO SCH (08:36)
[2020-03-23] MEDS: ZINC SULFATE 220 CAPSULE PO SCH (08:37)
[2020-03-23] MEDS: DIGOXIN 250 MCG/ML 2ML AMP IV SCH (08:37)
[2020-03-23] MEDS: SENNOSIDES 8.6 MG TABLET GT SCH (08:38)
[2020-03-23] MEDS: HONEY 1 APPL/ML TUBE TP SCH ×2 (08:39→21:00)
[2020-03-23] MEDS: DEXAMETHASONE SOD PHOSPHATE 4 MG/ML 1ML VIAL IV SCH (08:39)
[2020-03-23] MEDS: DILTIAZEM 125 MG/25 ML INJ 125 MG in 0.9%NACL 100ML 100 ML IV SCH (10:05)
[2020-03-23] MEDS: FENTANYL 2500MCG+NS 250ML 250 ML IV SCH (11:08)
[2020-03-23] MEDS: ACETAMINOPHEN 650 MG/20.3 ML UDCUP PEG PRN ×3 (12:08→22:49)
[2020-03-23] MEDS ORDERED: DILTIAZEM 60MG TAB PEG SCH (14:00)
[2020-03-23] MEDS: DILTIAZEM 60MG TAB PEG SCH (18:17)
[2020-03-24] VITALS (38 sets, daily range): BP systolic 84–159; BP diastolic 32–108
[2020-03-24] MEDS: METOCLOPRAMIDE 10 MG/2 ML VIAL IVP SCH ×4 (00:36→17:29)
[2020-03-24] MEDS: DILTIAZEM 60MG TAB PEG SCH ×4 (00:37→17:29)
[2020-03-24] MEDS: FENTANYL 2500MCG+NS 250ML 250 ML IV SCH (02:24)
[2020-03-24 03:39] LABS: ABG BASE EXCESS 3.9 mmol/L (-2.0-3.0); ABG HCO3 28.7 mmol/L (21.0-28.0); ABG OXYGEN SATURATION 95.4 % (95.0-99.0); ABG PCO2 44 mmHg (35-48)
[2020-03-24] MEDS: NYSTATIN 100000 UNIT/ML 5ML UDCUP PO SCH ×3 (03:54→17:29)
[2020-03-24] MEDS: ARTIFICAL TEARS SOL 15 ML OD SCH ×6 (04:00→20:00)
[2020-03-24 05:04] LABS: BASOPHILS % (AUTO) 0.2 % (0.0-5.0); EOSINOPHILS % (AUTO) 2.5 % (0.0-8.0); HEMATOCRIT 21.3 % (42-54); LYMPHOCYTES % (AUTO) 12.3 % (21.0-51.0); MEAN CORPUSCULAR HEMOGLOBIN 29.3 pg (27.0-33.0); MEAN CORPUSCULAR HGB CONC 31.5 g/dL (32.0-36.0); MONOCYTES % (AUTO) 6.7 % (3.0-13.0); NUCLEATED RED BLOOD CELLS 0.4 % (0.0-0.19); PLATELET COUNT (AUTO) 276 K/uL (130-400); RED BLOOD CELL COUNT(AUTO) 2.29 MIL/uL (4.50-6.20); WHITE BLOOD COUNT (AUTO) 5.2 K/uL (4.8-10.8)
[2020-03-24 05:17] LABS: CREATININE 0.8 mg/dL (0.5-1.5); CRP QUANTITATIVE 26.5 mg/L (0.00-9.0); MAGNESIUM 2.1 mg/dL (1.80-2.40); POTASSIUM 4.3 mmol/L (3.5-5.1)
[2020-03-24] MEDS: MEROPENEM 1 GM VIAL IVP SCH ×3 (05:42→23:11)
[2020-03-24] MEDS: MIDODRINE HCL 5 MG TABLET PEG SCH ×3 (05:43→23:10)
[2020-03-24] MEDS ORDERED: 0.9% NACL 250ML 250 ML IV ONE (06:45)
[2020-03-24] MEDS: INSULIN HUMULIN R 100 UNIT/ML 3ML SQ SCH ×4 (06:47→18:25)
[2020-03-24] MEDS: DOCUSATE NA 100MG/10ML UDCUP PO SCH (07:54)
[2020-03-24] MEDS: POLYETHYLENE GLYCOL 3350 17 GM POWD.PACK PO SCH (07:54)
[2020-03-24] MEDS: SENNOSIDES 8.6 MG TABLET GT SCH (07:54)
[2020-03-24] MEDS: DEXMEDETOMIDINE HCL 400 MCG in 0.9%NACL 100ML 100 ML IV SCH ×3 (08:37→16:02)
[2020-03-24] MEDS: DEXAMETHASONE SOD PHOSPHATE 4 MG/ML 1ML VIAL IV SCH (09:00)
[2020-03-24] MEDS: ENOXAPARIN SODIUM 40 MG/0.4 ML SYRINGE SQ SCH (09:00)
[2020-03-24] MEDS: FUROSEMIDE 20MG VIAL IVP SCH ×2 (09:13→23:10)
[2020-03-24] MEDS: PANTOPRAZOLE 40 MG/VIAL IVP SCH ×2 (09:15→23:10)
[2020-03-24] MEDS: HONEY 1 APPL/ML TUBE TP SCH ×2 (09:15→21:00)
[2020-03-24] MEDS: DIGOXIN 250 MCG/ML 2ML AMP IV SCH (09:16)
[2020-03-24 15:29] LABS: HEMATOCRIT 30.8 % (42-54)
[2020-03-25] VITALS (42 sets, daily range): BP systolic 94–152; BP diastolic 33–108
[2020-03-25] MEDS: METOCLOPRAMIDE 10 MG/2 ML VIAL IVP SCH ×4 (01:32→17:32)
[2020-03-25] MEDS: DILTIAZEM 60MG TAB PEG SCH ×6 (01:33→18:20)
[2020-03-25] MEDS: ARTIFICAL TEARS SOL 15 ML OD SCH ×6 (04:00→20:00)
[2020-03-25] MEDS: NYSTATIN 100000 UNIT/ML 5ML UDCUP PO SCH ×3 (04:23→20:48)
[2020-03-25 05:28] LABS: BASOPHILS % (AUTO) 0.1 % (0.0-5.0); EOSINOPHILS % (AUTO) 2.3 % (0.0-8.0); HEMATOCRIT 30.2 % (42-54); MEAN CORPUSCULAR HEMOGLOBIN 29.6 pg (27.0-33.0); MEAN CORPUSCULAR HGB CONC 32.8 g/dL (32.0-36.0); MEAN CORPUSCULAR VOLUME 90.4 fL (79-99); MONOCYTES % (AUTO) 6.1 % (3.0-13.0); NEUTROPHILS % (AUTO) 83.1 % (40.0-77.0); NUCLEATED RED BLOOD CELLS 0.2 % (0.0-0.19); PLATELET COUNT (AUTO) 435 K/uL (130-400); RED BLOOD CELL COUNT(AUTO) 3.34 MIL/uL (4.50-6.20); RED CELL DISTRIBUTION WIDTH 16.4 % (11.0-15.5); WHITE BLOOD COUNT (AUTO) 9.9 K/uL (4.8-10.8)
[2020-03-25] MEDS: MEROPENEM 1 GM VIAL IVP SCH ×3 (05:57→20:48)
[2020-03-25 05:58] LABS: ALBUMIN 1.8 g/dL (3.5-5.0); BILIRUBIN,TOTAL 0.9 mg/dL (0.2-1.0); CREATININE 1.5 mg/dL (0.5-1.5); MAGNESIUM 2.2 mg/dL (1.80-2.40); POTASSIUM 4.5 mmol/L (3.5-5.1); TOTAL PROTEIN, SERUM 5.5 g/dL (6.0-8.3)
[2020-03-25] MEDS: MIDODRINE HCL 5 MG TABLET PEG SCH ×3 (05:58→20:48)
[2020-03-25] MEDS: INSULIN HUMULIN R 100 UNIT/ML 3ML SQ SCH ×4 (06:36→17:29)
[2020-03-25] MEDS ORDERED: FUROSEMIDE 40MG VIAL IV SCH (08:30)
[2020-03-25] MEDS: POLYETHYLENE GLYCOL 3350 17 GM POWD.PACK PO SCH (09:24)
[2020-03-25] MEDS: PANTOPRAZOLE 40 MG/VIAL IVP SCH ×2 (09:24→21:03)
[2020-03-25] MEDS: SENNOSIDES 8.6 MG TABLET GT SCH (09:24)
[2020-03-25] MEDS: DOCUSATE NA 100MG/10ML UDCUP PO SCH (09:24)
[2020-03-25] MEDS: DIGOXIN 250 MCG/ML 2ML AMP IV SCH (09:34)
[2020-03-25] MEDS: FUROSEMIDE 20MG VIAL IVP SCH ×2 (09:35→20:49)
[2020-03-25] MEDS: DEXAMETHASONE SOD PHOSPHATE 4 MG/ML 1ML VIAL IV SCH (09:35)
[2020-03-25] MEDS: HONEY 1 APPL/ML TUBE TP SCH ×2 (09:36→21:00)
[2020-03-25] MEDS: DEXMEDETOMIDINE HCL 400 MCG in 0.9%NACL 100ML 100 ML IV SCH ×2 (09:51→20:50)
[2020-03-25] MEDS: FENTANYL 2500MCG+NS 250ML 250 ML IV SCH (09:52)
[2020-03-26] VITALS (27 sets, daily range): BP systolic 80–151; BP diastolic 34–98
[2020-03-26] MEDS: METOCLOPRAMIDE 10 MG/2 ML VIAL IVP SCH ×5 (00:01→23:41)
[2020-03-26] MEDS: DILTIAZEM 60MG TAB PEG SCH ×5 (00:08→23:42)
[2020-03-26] MEDS: INSULIN HUMULIN R 100 UNIT/ML 3ML SQ SCH ×4 (00:14→17:56)
[2020-03-26 03:19] LABS: ABG BASE EXCESS 1.3 mmol/L (-2.0-3.0); ABG HCO3 24.9 mmol/L (21.0-28.0); ABG OXYGEN SATURATION 93.1 % (95.0-99.0); ABG PCO2 36 mmHg (35-48)
[2020-03-26] MEDS: NYSTATIN 100000 UNIT/ML 5ML UDCUP PO SCH ×3 (03:35→17:54)
[2020-03-26] MEDS: ACETAMINOPHEN 650 MG/20.3 ML UDCUP PEG PRN (03:35)
[2020-03-26] MEDS: ARTIFICAL TEARS SOL 15 ML OD SCH ×6 (03:36→20:58)
[2020-03-26] MEDS: MEROPENEM 1 GM VIAL IVP SCH ×3 (05:07→20:55)
[2020-03-26] MEDS: DEXMEDETOMIDINE HCL 400 MCG in 0.9%NACL 100ML 100 ML IV SCH ×5 (05:20→20:57)
[2020-03-26] MEDS: MIDODRINE HCL 5 MG TABLET PEG SCH ×3 (05:47→20:55)
[2020-03-26 05:55] LABS: BASOPHILS % (AUTO) 0.1 % (0.0-5.0); EOSINOPHILS % (AUTO) 0.3 % (0.0-8.0); HEMATOCRIT 29.4 % (42-54); LYMPHOCYTES % (AUTO) 5.1 % (21.0-51.0); MEAN CORPUSCULAR HEMOGLOBIN 28.7 pg (27.0-33.0); MEAN CORPUSCULAR HGB CONC 31.6 g/dL (32.0-36.0); MEAN CORPUSCULAR VOLUME 90.7 fL (79-99); MONOCYTES % (AUTO) 5.5 % (3.0-13.0); NEUTROPHILS % (AUTO) 87.5 % (40.0-77.0); PLATELET COUNT (AUTO) 406 K/uL (130-400); RED BLOOD CELL COUNT(AUTO) 3.24 MIL/uL (4.50-6.20); RED CELL DISTRIBUTION WIDTH 16.9 % (11.0-15.5); WHITE BLOOD COUNT (AUTO) 9.2 K/uL (4.8-10.8)
[2020-03-26 06:41] LABS: ALBUMIN 1.8 g/dL (3.5-5.0); BILIRUBIN,TOTAL 0.7 mg/dL (0.2-1.0); CREATININE 1.8 mg/dL (0.5-1.5); CRP QUANTITATIVE 31.2 mg/L (0.00-9.0)
[2020-03-26] MEDS: DEXAMETHASONE SOD PHOSPHATE 4 MG/ML 1ML VIAL IV SCH (09:46)
[2020-03-26] MEDS: DIGOXIN 250 MCG/ML 2ML AMP IV SCH (09:46)
[2020-03-26] MEDS: SENNOSIDES 8.6 MG TABLET GT SCH (09:46)
[2020-03-26] MEDS: FUROSEMIDE 20MG VIAL IVP SCH ×2 (09:46→20:54)
[2020-03-26] MEDS: HONEY 1 APPL/ML TUBE TP SCH ×2 (09:46→20:57)
[2020-03-26] MEDS: DOCUSATE NA 100MG/10ML UDCUP PO SCH (09:46)
[2020-03-26] MEDS: POLYETHYLENE GLYCOL 3350 17 GM POWD.PACK PO SCH (09:46)
[2020-03-26] MEDS: PANTOPRAZOLE 40 MG/VIAL IVP SCH ×2 (09:46→20:55)
[2020-03-26] MEDS: FENTANYL 2500MCG+NS 250ML 250 ML IV SCH (23:01)
[2020-03-27] VITALS (33 sets, daily range): BP systolic 71–151; BP diastolic 29–83
[2020-03-27] MEDS: INSULIN HUMULIN R 100 UNIT/ML 3ML SQ SCH ×4 (00:31→18:04)
[2020-03-27] MEDS: DEXMEDETOMIDINE HCL 400 MCG in 0.9%NACL 100ML 100 ML IV SCH ×7 (00:59→20:38)
[2020-03-27] MEDS: NYSTATIN 100000 UNIT/ML 5ML UDCUP PO SCH ×3 (03:40→17:55)
[2020-03-27] MEDS: MEROPENEM 1 GM VIAL IVP SCH ×3 (04:00→20:40)
[2020-03-27] MEDS: MIDODRINE HCL 5 MG TABLET PEG SCH ×3 (05:44→23:06)
[2020-03-27] MEDS: METOCLOPRAMIDE 10 MG/2 ML VIAL IVP SCH ×4 (05:44→23:06)
[2020-03-27] MEDS: DILTIAZEM 60MG TAB PEG SCH ×4 (05:44→23:06)
[2020-03-27] MEDS: ARTIFICAL TEARS SOL 15 ML OD SCH ×5 (08:12→23:06)
[2020-03-27 08:21] LABS: CREATININE 0.8 mg/dL (0.5-1.5); MAGNESIUM 2.5 mg/dL (1.80-2.40); POTASSIUM 4.2 mmol/L (3.5-5.1)
[2020-03-27 08:24] LABS: BASOPHILS % (AUTO) 0.1 % (0.0-5.0); EOSINOPHILS % (AUTO) 0.3 % (0.0-8.0); HEMATOCRIT 30.3 % (42-54); LYMPHOCYTES % (AUTO) 5.8 % (21.0-51.0); MEAN CORPUSCULAR HEMOGLOBIN 29.1 pg (27.0-33.0); MEAN CORPUSCULAR HGB CONC 31.4 g/dL (32.0-36.0); MEAN CORPUSCULAR VOLUME 92.7 fL (79-99); MONOCYTES % (AUTO) 6.1 % (3.0-13.0); NEUTROPHILS % (AUTO) 86.4 % (40.0-77.0); PLATELET COUNT (AUTO) 399 K/uL (130-400); RED BLOOD CELL COUNT(AUTO) 3.27 MIL/uL (4.50-6.20); RED CELL DISTRIBUTION WIDTH 17.1 % (11.0-15.5); WHITE BLOOD COUNT (AUTO) 10.4 K/uL (4.8-10.8)
[2020-03-27 08:37] LABS: ABG BASE EXCESS 8.1 mmol/L (-2.0-3.0); ABG HCO3 32.2 mmol/L (21.0-28.0); ABG OXYGEN SATURATION 93.6 % (95.0-99.0); ABG PCO2 42 mmHg (35-48)
[2020-03-27] MEDS: DEXAMETHASONE SOD PHOSPHATE 4 MG/ML 1ML VIAL IV SCH (10:07)
[2020-03-27] MEDS: DOCUSATE NA 100MG/10ML UDCUP PO SCH (10:07)
[2020-03-27] MEDS: DIGOXIN 250 MCG/ML 2ML AMP IV SCH (10:07)
[2020-03-27] MEDS: SENNOSIDES 8.6 MG TABLET GT SCH (10:08)
[2020-03-27] MEDS: PANTOPRAZOLE 40 MG/VIAL IVP SCH ×2 (10:08→20:39)
[2020-03-27] MEDS: POLYETHYLENE GLYCOL 3350 17 GM POWD.PACK PO SCH (10:08)
[2020-03-27] MEDS: HONEY 1 APPL/ML TUBE TP SCH ×2 (10:08→20:40)
[2020-03-27] MEDS: FUROSEMIDE 20MG VIAL IVP SCH ×2 (10:08→20:40)
[2020-03-27] MEDS ORDERED: IPRATROPIUM/ALBUTEROL SULFATE 3 ML SOLUTION IH SCH (18:00)
[2020-03-27] MEDS ORDERED: PHARMACY COMMUNICATION MISC SCH (19:15)
[2020-03-28] VITALS (21 sets, daily range): BP systolic 95–142; BP diastolic 40–97
[2020-03-28] MEDS: INSULIN HUMULIN R 100 UNIT/ML 3ML SQ SCH ×4 (00:40→18:14)
[2020-03-28] MEDS: NYSTATIN 100000 UNIT/ML 5ML UDCUP PO SCH ×3 (00:42→17:26)
[2020-03-28] MEDS: DEXMEDETOMIDINE HCL 400 MCG in 0.9%NACL 100ML 100 ML IV SCH ×5 (01:07→17:49)
[2020-03-28] MEDS: ARTIFICAL TEARS SOL 15 ML OD SCH ×5 (03:07→22:17)
[2020-03-28] MEDS: MEROPENEM 1 GM VIAL IVP SCH ×2 (04:18→12:21)
[2020-03-28] MEDS: MIDODRINE HCL 5 MG TABLET PEG SCH ×3 (05:09→22:13)
[2020-03-28] MEDS: METOCLOPRAMIDE 10 MG/2 ML VIAL IVP SCH ×3 (05:10→17:25)
[2020-03-28] MEDS: DILTIAZEM 60MG TAB PEG SCH ×3 (05:10→17:26)
[2020-03-28] MEDS: ALBUTEROL INHALER 90MCG/INH IH SCH ×2 (06:00)
[2020-03-28 07:26] LABS: BASOPHILS % (AUTO) 0.2 % (0.0-5.0); EOSINOPHILS % (AUTO) 0.3 % (0.0-8.0); HEMATOCRIT 31.4 % (42-54); LYMPHOCYTES % (AUTO) 5.2 % (21.0-51.0); MEAN CORPUSCULAR HEMOGLOBIN 29.5 pg (27.0-33.0); MEAN CORPUSCULAR HGB CONC 31.8 g/dL (32.0-36.0); MEAN CORPUSCULAR VOLUME 92.6 fL (79-99); MONOCYTES % (AUTO) 5.7 % (3.0-13.0); NEUTROPHILS % (AUTO) 87.2 % (40.0-77.0); PLATELET COUNT (AUTO) 468 K/uL (130-400); RED BLOOD CELL COUNT(AUTO) 3.39 MIL/uL (4.50-6.20); RED CELL DISTRIBUTION WIDTH 16.9 % (11.0-15.5); WHITE BLOOD COUNT (AUTO) 12.6 K/uL (4.8-10.8)
[2020-03-28 07:43] LABS: ALBUMIN 1.6 g/dL (3.5-5.0); BILIRUBIN,TOTAL 0.6 mg/dL (0.2-1.0); CREATININE 0.8 mg/dL (0.5-1.5); CRP QUANTITATIVE 11.1 mg/L (0.00-9.0); POTASSIUM 4.2 mmol/L (3.5-5.1); TOTAL PROTEIN, SERUM 5.2 g/dL (6.0-8.3)
[2020-03-28] MEDS: DEXAMETHASONE SOD PHOSPHATE 4 MG/ML 1ML VIAL IV SCH (10:02)
[2020-03-28] MEDS: DOCUSATE NA 100MG/10ML UDCUP PO SCH (10:02)
[2020-03-28] MEDS: FUROSEMIDE 20MG VIAL IVP SCH ×2 (10:03→22:13)
[2020-03-28] MEDS: SENNOSIDES 8.6 MG TABLET GT SCH (10:03)
[2020-03-28] MEDS: DIGOXIN 250 MCG/ML 2ML AMP IV SCH (10:04)
[2020-03-28] MEDS: PANTOPRAZOLE 40 MG/VIAL IVP SCH ×2 (10:05→22:06)
[2020-03-28] MEDS: POLYETHYLENE GLYCOL 3350 17 GM POWD.PACK PO SCH (10:05)
[2020-03-28] MEDS: HONEY 1 APPL/ML TUBE TP SCH ×2 (10:05→22:17)
[2020-03-29] VITALS (31 sets, daily range): BP systolic 82–160; BP diastolic 33–109
[2020-03-29] MEDS: METOCLOPRAMIDE 10 MG/2 ML VIAL IVP SCH ×4 (02:03→17:37)
[2020-03-29] MEDS: DILTIAZEM 60MG TAB PEG SCH ×3 (02:04→17:38)
[2020-03-29] MEDS: INSULIN HUMULIN R 100 UNIT/ML 3ML SQ SCH ×3 (02:06→17:39)
[2020-03-29] MEDS: ARTIFICAL TEARS SOL 15 ML OD SCH ×6 (02:08→21:39)
[2020-03-29] MEDS: LEVOFLOXACIN 750 MG/D5W 150 ML 150 ML IV SCH ×2 (02:35→21:30)
[2020-03-29] MEDS: NYSTATIN 100000 UNIT/ML 5ML UDCUP PO SCH ×3 (04:34→21:24)
[2020-03-29 05:22] LABS: BASOPHILS % (AUTO) 0.1 % (0.0-5.0); HEMATOCRIT 31.7 % (42-54); LYMPHOCYTES % (AUTO) 2.4 % (21.0-51.0); MEAN CORPUSCULAR HEMOGLOBIN 29.2 pg (27.0-33.0); MEAN CORPUSCULAR HGB CONC 31.2 g/dL (32.0-36.0); MEAN CORPUSCULAR VOLUME 93.5 fL (79-99); MONOCYTES % (AUTO) 5.6 % (3.0-13.0); NEUTROPHILS % (AUTO) 90.4 % (40.0-77.0); PLATELET COUNT (AUTO) 466 K/uL (130-400); RED BLOOD CELL COUNT(AUTO) 3.39 MIL/uL (4.50-6.20); WHITE BLOOD COUNT (AUTO) 15.1 K/uL (4.8-10.8)
[2020-03-29 05:41] LABS: ALBUMIN 1.6 g/dL (3.5-5.0); BILIRUBIN,TOTAL 0.6 mg/dL (0.2-1.0); CREATININE 0.9 mg/dL (0.5-1.5); POTASSIUM 4.5 mmol/L (3.5-5.1); TOTAL PROTEIN, SERUM 5.2 g/dL (6.0-8.3)
[2020-03-29] MEDS: MIDODRINE HCL 5 MG TABLET PEG SCH ×3 (05:42→21:28)
[2020-03-29 07:36] LABS: ABG BASE EXCESS 5.8 mmol/L (-2.0-3.0); ABG HCO3 29.9 mmol/L (21.0-28.0); ABG OXYGEN SATURATION 97.3 % (95.0-99.0); ABG PCO2 41 mmHg (35-48)
[2020-03-29] MEDS: DOCUSATE NA 100MG/10ML UDCUP PO SCH (09:18)
[2020-03-29] MEDS: PANTOPRAZOLE 40 MG/VIAL IVP SCH (09:19)
[2020-03-29] MEDS: SENNOSIDES 8.6 MG TABLET GT SCH (09:19)
[2020-03-29] MEDS: FUROSEMIDE 20MG VIAL IVP SCH ×2 (09:25→21:25)
[2020-03-29] MEDS: DIGOXIN 250 MCG/ML 2ML AMP IV SCH (09:26)
[2020-03-29] MEDS: POLYETHYLENE GLYCOL 3350 17 GM POWD.PACK PO SCH (09:26)
[2020-03-29] MEDS: HONEY 1 APPL/ML TUBE TP SCH ×2 (09:27→21:39)
[2020-03-29] MEDS ORDERED: FENTANYL CITRATE PF 0.05 MG/ML 1,000 MCG in 0.9%NACL 100ML 100 ML IVPB SCH (11:15)
[2020-03-29] MEDS ORDERED: FENTANYL 2500MCG+NS 250ML 250 ML IV SCH (11:15)
[2020-03-29] MEDS: DEXMEDETOMIDINE HCL 400 MCG in 0.9%NACL 100ML 100 ML IV SCH ×2 (14:14→18:17)
[2020-03-30] VITALS (34 sets, daily range): BP systolic 76–132; BP diastolic 27–65
[2020-03-30] MEDS: METOCLOPRAMIDE 10 MG/2 ML VIAL IVP SCH ×4 (00:46→17:49)
[2020-03-30] MEDS: DILTIAZEM 60MG TAB PEG SCH ×4 (00:46→17:50)
[2020-03-30] MEDS: INSULIN HUMULIN R 100 UNIT/ML 3ML SQ SCH ×4 (00:55→17:54)
[2020-03-30] MEDS: ARTIFICAL TEARS SOL 15 ML OD SCH ×6 (00:58→20:43)
[2020-03-30] MEDS: NYSTATIN 100000 UNIT/ML 5ML UDCUP PO SCH ×2 (02:04→11:36)
[2020-03-30 03:58] LABS: ABG BASE EXCESS 5.1 mmol/L (-2.0-3.0); ABG HCO3 30.5 mmol/L (21.0-28.0); ABG OXYGEN SATURATION 95.6 % (95.0-99.0); ABG PCO2 48 mmHg (35-48)
[2020-03-30] MEDS: DEXMEDETOMIDINE HCL 400 MCG in 0.9%NACL 100ML 100 ML IV SCH ×3 (04:32→16:41)
[2020-03-30 04:37] LABS: BASOPHILS % (AUTO) 0.1 % (0.0-5.0); EOSINOPHILS % (AUTO) 0.2 % (0.0-8.0); HEMATOCRIT 32.5 % (42-54); LYMPHOCYTES % (AUTO) 3.3 % (21.0-51.0); MEAN CORPUSCULAR HEMOGLOBIN 29.3 pg (27.0-33.0); MEAN CORPUSCULAR HGB CONC 30.8 g/dL (32.0-36.0); MEAN CORPUSCULAR VOLUME 95.3 fL (79-99); NEUTROPHILS % (AUTO) 90.3 % (40.0-77.0); PLATELET COUNT (AUTO) 443 K/uL (130-400); RED BLOOD CELL COUNT(AUTO) 3.41 MIL/uL (4.50-6.20); RED CELL DISTRIBUTION WIDTH 16.6 % (11.0-15.5); WHITE BLOOD COUNT (AUTO) 17.2 K/uL (4.8-10.8)
[2020-03-30 04:45] LABS: CREATININE 0.9 mg/dL (0.5-1.5); CRP QUANTITATIVE 10.7 mg/L (0.00-9.0); MAGNESIUM 2.4 mg/dL (1.80-2.40); POTASSIUM 4.4 mmol/L (3.5-5.1)
[2020-03-30] MEDS: MIDODRINE HCL 5 MG TABLET PEG SCH ×3 (06:20→22:19)
[2020-03-30] MEDS: DOCUSATE NA 100MG/10ML UDCUP PO SCH (09:48)
[2020-03-30] MEDS: SENNOSIDES 8.6 MG TABLET GT SCH (09:48)
[2020-03-30] MEDS: POLYETHYLENE GLYCOL 3350 17 GM POWD.PACK PO SCH (09:48)
[2020-03-30] MEDS: FAMOTIDINE 20MG VIAL IV SCH ×2 (09:49→20:40)
[2020-03-30] MEDS: ENOXAPARIN SODIUM 40 MG/0.4 ML SYRINGE SQ SCH (09:49)
[2020-03-30] MEDS: DIGOXIN 250 MCG/ML 2ML AMP IV SCH (09:50)
[2020-03-30] MEDS: HONEY 1 APPL/ML TUBE TP SCH ×2 (09:51→20:44)
[2020-03-30] MEDS: FUROSEMIDE 20MG VIAL IVP SCH ×2 (09:51→20:41)
[2020-03-30] MEDS: LEVOFLOXACIN 750 MG/D5W 150 ML 150 ML IV SCH (20:41)
[2020-03-31] VITALS (38 sets, daily range): BP systolic 55–124; BP diastolic 36–66
[2020-03-31] MEDS: METOCLOPRAMIDE 10 MG/2 ML VIAL IVP SCH ×4 (00:09→17:08)
[2020-03-31] MEDS: DILTIAZEM 60MG TAB PEG SCH ×4 (00:10→17:35)
[2020-03-31] MEDS: INSULIN HUMULIN R 100 UNIT/ML 3ML SQ SCH ×4 (00:12→17:56)
[2020-03-31] MEDS: ARTIFICAL TEARS SOL 15 ML OD SCH ×6 (00:14→20:55)
[2020-03-31] MEDS: NYSTATIN 100000 UNIT/ML 5ML UDCUP PO SCH ×4 (00:14→20:55)
[2020-03-31] MEDS: DEXMEDETOMIDINE HCL 400 MCG in 0.9%NACL 100ML 100 ML IV SCH (01:52)
[2020-03-31 03:42] LABS: ABG BASE EXCESS 7.4 mmol/L (-2.0-3.0); ABG HCO3 33.4 mmol/L (21.0-28.0); ABG OXYGEN SATURATION 93.1 % (95.0-99.0); ABG PCO2 52 mmHg (35-48)
[2020-03-31 05:19] LABS: BASOPHILS % (AUTO) 0.2 % (0.0-5.0); EOSINOPHILS % (AUTO) 0.3 % (0.0-8.0); HEMATOCRIT 31.4 % (42-54); LYMPHOCYTES % (AUTO) 3.9 % (21.0-51.0); MEAN CORPUSCULAR HEMOGLOBIN 29.8 pg (27.0-33.0); MEAN CORPUSCULAR HGB CONC 31.2 g/dL (32.0-36.0); MEAN CORPUSCULAR VOLUME 95.4 fL (79-99); MONOCYTES % (AUTO) 4.6 % (3.0-13.0); NEUTROPHILS % (AUTO) 89.2 % (40.0-77.0); PLATELET COUNT (AUTO) 401 K/uL (130-400); RED BLOOD CELL COUNT(AUTO) 3.29 MIL/uL (4.50-6.20); RED CELL DISTRIBUTION WIDTH 16.1 % (11.0-15.5); WHITE BLOOD COUNT (AUTO) 18.6 K/uL (4.8-10.8)
[2020-03-31] MEDS: MIDODRINE HCL 5 MG TABLET PEG SCH ×3 (05:25→20:59)
[2020-03-31 05:55] LABS: CREATININE 0.8 mg/dL (0.5-1.5); CRP QUANTITATIVE 7.6 mg/L (0.00-9.0); POTASSIUM 4.6 mmol/L (3.5-5.1)
[2020-03-31] MEDS: SENNOSIDES 8.6 MG TABLET GT SCH (08:04)
[2020-03-31] MEDS: POLYETHYLENE GLYCOL 3350 17 GM POWD.PACK PO SCH (08:04)
[2020-03-31] MEDS: DOCUSATE NA 100MG/10ML UDCUP PO SCH (08:04)
[2020-03-31] MEDS: DIGOXIN 250 MCG/ML 2ML AMP IV SCH (08:05)
[2020-03-31] MEDS: FAMOTIDINE 20MG VIAL IV SCH ×2 (08:05→20:56)
[2020-03-31] MEDS: FUROSEMIDE 20MG VIAL IVP SCH ×2 (08:05→20:56)
[2020-03-31] MEDS: ENOXAPARIN SODIUM 40 MG/0.4 ML SYRINGE SQ SCH (08:06)
[2020-03-31] MEDS: HONEY 1 APPL/ML TUBE TP SCH ×2 (08:06→21:36)
[2020-03-31] MEDS: LEVOFLOXACIN 750 MG/D5W 150 ML 150 ML IV SCH (20:55)
[2020-04-01] VITALS (33 sets, daily range): BP systolic 79–126; BP diastolic 33–78
[2020-04-01] MEDS: DILTIAZEM 60MG TAB PEG SCH ×4 (00:17→17:47)
[2020-04-01] MEDS: METOCLOPRAMIDE 10 MG/2 ML VIAL IVP SCH ×4 (00:17→17:47)
[2020-04-01] MEDS: ARTIFICAL TEARS SOL 15 ML OD SCH ×4 (00:18→12:24)
[2020-04-01] MEDS: INSULIN HUMULIN R 100 UNIT/ML 3ML SQ SCH ×3 (00:20→11:56)
[2020-04-01 02:42] LABS: ABG HCO3 31.7 mmol/L (21.0-28.0); ABG OXYGEN SATURATION 94.5 % (95.0-99.0); ABG PCO2 60 mmHg (35-48)
[2020-04-01] MEDS: NYSTATIN 100000 UNIT/ML 5ML UDCUP PO SCH ×3 (03:11→20:17)
[2020-04-01] MEDS: MIDODRINE HCL 5 MG TABLET PEG SCH ×3 (05:27→22:17)
[2020-04-01 05:31] LABS: MEAN CORPUSCULAR HEMOGLOBIN 28.8 pg (27.0-33.0); MEAN CORPUSCULAR HGB CONC 29.7 g/dL (32.0-36.0); PLATELET COUNT (AUTO) 365 K/uL (130-400); RED CELL DISTRIBUTION WIDTH 16.1 % (11.0-15.5); WHITE BLOOD COUNT (AUTO) 18.1 K/uL (4.8-10.8)
[2020-04-01 06:02] LABS: CREATININE 1.1 mg/dL (0.5-1.5); CRP QUANTITATIVE 12.4 mg/L (0.00-9.0); POTASSIUM 4.8 mmol/L (3.5-5.1)
[2020-04-01] MEDS: SENNOSIDES 8.6 MG TABLET GT SCH (08:03)
[2020-04-01] MEDS: DOCUSATE NA 100MG/10ML UDCUP PO SCH (08:04)
[2020-04-01] MEDS: HONEY 1 APPL/ML TUBE TP SCH ×2 (08:04→20:20)
[2020-04-01] MEDS: POLYETHYLENE GLYCOL 3350 17 GM POWD.PACK PO SCH (08:04)
[2020-04-01] MEDS: DIGOXIN 250 MCG/ML 2ML AMP IV SCH (08:05)
[2020-04-01] MEDS: FAMOTIDINE 20MG VIAL IV SCH ×2 (08:05→20:18)
[2020-04-01] MEDS: LEVOFLOXACIN 750 MG/D5W 150 ML 150 ML IV SCH (20:18)
[2020-04-01] MEDS ORDERED: NOREPINEPHRIN 4MG/NS 250ML 250 ML IV ONE (20:46)
[2020-04-02] VITALS (35 sets, daily range): BP systolic 93–136; BP diastolic 36–79
[2020-04-02] MEDS: METOCLOPRAMIDE 10 MG/2 ML VIAL IVP SCH ×4 (00:05→17:39)
[2020-04-02] MEDS: DILTIAZEM 60MG TAB PEG SCH ×4 (00:05→17:52)
[2020-04-02] MEDS: NYSTATIN 100000 UNIT/ML 5ML UDCUP PO SCH ×3 (02:33→20:41)
[2020-04-02] MEDS: NOREPINEPHRIN 4MG/NS 250ML 250 ML IV SCH ×4 (02:33→19:35)
[2020-04-02 04:51] LABS: BASOPHILS % (AUTO) 0.2 % (0.0-5.0); EOSINOPHILS % (AUTO) 0.4 % (0.0-8.0); HEMATOCRIT 29.9 % (42-54); LYMPHOCYTES % (AUTO) 4.9 % (21.0-51.0); MEAN CORPUSCULAR HEMOGLOBIN 29.6 pg (27.0-33.0); MEAN CORPUSCULAR HGB CONC 30.4 g/dL (32.0-36.0); MEAN CORPUSCULAR VOLUME 97.4 fL (79-99); MONOCYTES % (AUTO) 4.7 % (3.0-13.0); NEUTROPHILS % (AUTO) 88.3 % (40.0-77.0); PLATELET COUNT (AUTO) 383 K/uL (130-400); RED BLOOD CELL COUNT(AUTO) 3.07 MIL/uL (4.50-6.20); RED CELL DISTRIBUTION WIDTH 16.2 % (11.0-15.5); WHITE BLOOD COUNT (AUTO) 19.2 K/uL (4.8-10.8)
[2020-04-02 05:10] LABS: CREATININE 1.4 mg/dL (0.5-1.5); CRP QUANTITATIVE 8.9 mg/L (0.00-9.0); MAGNESIUM 2.5 mg/dL (1.80-2.40); POTASSIUM 5.1 mmol/L (3.5-5.1)
[2020-04-02] MEDS: MIDODRINE HCL 5 MG TABLET PEG SCH ×3 (05:15→21:29)
[2020-04-02] MEDS: DOCUSATE NA 100MG/10ML UDCUP PO SCH (08:22)
[2020-04-02] MEDS: ACETAMINOPHEN 650 MG/20.3 ML UDCUP PEG PRN (08:22)
[2020-04-02] MEDS: SENNOSIDES 8.6 MG TABLET GT SCH (08:23)
[2020-04-02] MEDS: FAMOTIDINE 20MG VIAL IV SCH ×2 (08:23→21:28)
[2020-04-02] MEDS: HONEY 1 APPL/ML TUBE TP SCH ×2 (08:24→21:29)
[2020-04-02] MEDS: POLYETHYLENE GLYCOL 3350 17 GM POWD.PACK PO SCH (08:24)
[2020-04-02] MEDS: DIGOXIN 250 MCG/ML 2ML AMP IV SCH (08:24)
[2020-04-02 11:05] LABS: APPEARANCE,URINE CLOUDY (CLEAR); BILIRUBIN,URINE NEGATIVE (NEGATIVE); COLOR,URINE YELLOW (YELLOW); GLUCOSE, URINE (UA) NEGATIVE (NEGATIVE); KETONES,URINE NEGATIVE (NEGATIVE); LEUKOCYTE ESTERASE ,URINE SMALL (NEGATIVE); NITRATE,URINE NEGATIVE (NEGATIVE); OCCULT BLOOD,URINE LARGE (NEGATIVE); PH,URINE 5.5 (5.0-8.0); PROTEIN,URINE TRACE mg/dL (NEGATIVE)
[2020-04-02 11:34] LABS: RBC,URINE 26-50 /HPF (0-1); YEAST,URINE BUDDING Many /HPF (None Seen)
[2020-04-02 11:36] LABS: BACTERIA,URINE Few /HPF (None Seen)
[2020-04-02] MEDS ORDERED: INSULIN HUMULIN R 100 UNIT/ML 3ML SQ SCH (12:00)
[2020-04-02] MEDS: PHARMACY COMMUNICATION MISC SCH ×3 (12:00→20:42)
[2020-04-02] MEDS: ALBUMIN (HUMAN) 25% 50 ML IV SCH (12:12)
[2020-04-02] MEDS: INSULIN HUMULIN R 100 UNIT/ML 3ML SQ SCH ×2 (13:17→18:05)
[2020-04-02] MEDS: MEROPENEM 1 GM VIAL IVP SCH ×2 (15:14→22:56)
[2020-04-02] MEDS ORDERED: PHARMACY COMMUNICATION MISC SCH (15:15)
[2020-04-02] MEDS ORDERED: VANCOMYCIN PROTOCOL PER PHARMACY IV SCH (15:45)
[2020-04-02] MEDS ORDERED: COMPOUND IV REFRIGERATED 1 EACH IVSOLN MISC PRN (16:15)
[2020-04-02] MEDS: VANCOMYCIN 1G 1.25 GM in 0.9% NACL 250ML 250 ML IV SCH (16:51)
[2020-04-03] VITALS (29 sets, daily range): BP systolic 90–142; BP diastolic 31–60
[2020-04-03] MEDS: ALBUMIN (HUMAN) 25% 50 ML IV SCH ×4 (00:12→20:40)
[2020-04-03] MEDS: DILTIAZEM 60MG TAB PEG SCH ×2 (00:13→06:04)
[2020-04-03] MEDS: METOCLOPRAMIDE 10 MG/2 ML VIAL IVP SCH ×4 (00:13→17:38)
[2020-04-03] MEDS: INSULIN HUMULIN R 100 UNIT/ML 3ML SQ SCH ×4 (00:15→18:01)
[2020-04-03] MEDS: PHARMACY COMMUNICATION MISC SCH ×6 (00:24→20:00)
[2020-04-03] MEDS: NOREPINEPHRIN 4MG/NS 250ML 250 ML IV SCH ×3 (01:39→20:39)
[2020-04-03 03:31] LABS: ABG BASE EXCESS 1.6 mmol/L (-2.0-3.0); ABG HCO3 31.5 mmol/L (21.0-28.0); ABG OXYGEN SATURATION 92.6 % (95.0-99.0); ABG PCO2 75 mmHg (35-48)
[2020-04-03] MEDS: NYSTATIN 100000 UNIT/ML 5ML UDCUP PO SCH ×3 (04:07→19:46)
[2020-04-03 05:00] LABS: BASOPHILS % (AUTO) 0.2 % (0.0-5.0); EOSINOPHILS % (AUTO) 0.7 % (0.0-8.0); HEMATOCRIT 28.6 % (42-54); LYMPHOCYTES % (AUTO) 4.3 % (21.0-51.0); MEAN CORPUSCULAR HEMOGLOBIN 29.4 pg (27.0-33.0); MEAN CORPUSCULAR HGB CONC 30.1 g/dL (32.0-36.0); MEAN CORPUSCULAR VOLUME 97.6 fL (79-99); MONOCYTES % (AUTO) 3.7 % (3.0-13.0); NEUTROPHILS % (AUTO) 89.7 % (40.0-77.0); PLATELET COUNT (AUTO) 289 K/uL (130-400); RED BLOOD CELL COUNT(AUTO) 2.93 MIL/uL (4.50-6.20); WHITE BLOOD COUNT (AUTO) 17.7 K/uL (4.8-10.8)
[2020-04-03 05:26] LABS: BILIRUBIN,TOTAL 0.5 mg/dL (0.2-1.0); CREATININE 1.4 mg/dL (0.5-1.5); CRP QUANTITATIVE 12.7 mg/L (0.00-9.0); TOTAL PROTEIN, SERUM 4.8 g/dL (6.0-8.3)
[2020-04-03] MEDS: MIDODRINE HCL 5 MG TABLET PEG SCH ×3 (06:16→21:18)
[2020-04-03] MEDS: MEROPENEM 1 GM VIAL IVP SCH ×3 (06:16→21:17)
[2020-04-03] MEDS: POLYETHYLENE GLYCOL 3350 17 GM POWD.PACK PO SCH (08:17)
[2020-04-03] MEDS: DOCUSATE NA 100MG/10ML UDCUP PO SCH (08:17)
[2020-04-03] MEDS: SENNOSIDES 8.6 MG TABLET GT SCH (08:18)
[2020-04-03] MEDS: FAMOTIDINE 20MG VIAL IV SCH ×2 (08:18→20:37)
[2020-04-03] MEDS: DIGOXIN 250 MCG/ML 2ML AMP IV SCH (08:19)
[2020-04-03] MEDS: HONEY 1 APPL/ML TUBE TP SCH ×2 (08:20→20:41)
[2020-04-03] MEDS: DILTIAZEM 60MG TAB GT SCH ×2 (12:10→17:39)
[2020-04-03] MEDS ORDERED: FENTANYL CITRATE PF 50 MCG/1 ML 2ML VIAL IVP PRN (15:30)
[2020-04-03] MEDS: VANCOMYCIN 1G 1.25 GM in 0.9% NACL 250ML 250 ML IV SCH (16:30)
[2020-04-04] VITALS (31 sets, daily range): BP systolic 84–135; BP diastolic 30–66
[2020-04-04] MEDS: INSULIN HUMULIN R 100 UNIT/ML 3ML SQ SCH ×4 (00:05→17:26)
[2020-04-04] MEDS: PHARMACY COMMUNICATION MISC SCH ×5 (04:37→16:00)
[2020-04-04] MEDS: NYSTATIN 100000 UNIT/ML 5ML UDCUP PO SCH ×3 (04:38→20:53)
[2020-04-04 04:39] LABS: BASOPHILS % (AUTO) 0.1 % (0.0-5.0); EOSINOPHILS % (AUTO) 0.7 % (0.0-8.0); HEMATOCRIT 25.9 % (42-54); LYMPHOCYTES % (AUTO) 4.1 % (21.0-51.0); MEAN CORPUSCULAR HEMOGLOBIN 28.8 pg (27.0-33.0); MEAN CORPUSCULAR HGB CONC 29.7 g/dL (32.0-36.0); NEUTROPHILS % (AUTO) 91.2 % (40.0-77.0); PLATELET COUNT (AUTO) 230 K/uL (130-400); RED BLOOD CELL COUNT(AUTO) 2.67 MIL/uL (4.50-6.20); RED CELL DISTRIBUTION WIDTH 16.5 % (11.0-15.5); WHITE BLOOD COUNT (AUTO) 15.1 K/uL (4.8-10.8)
[2020-04-04 04:57] LABS: ALBUMIN 2.3 g/dL (3.5-5.0); BILIRUBIN,TOTAL 0.5 mg/dL (0.2-1.0); CREATININE 1.5 mg/dL (0.5-1.5); CRP QUANTITATIVE 16.2 mg/L (0.00-9.0); MAGNESIUM 2.6 mg/dL (1.80-2.40); POTASSIUM 4.8 mmol/L (3.5-5.1); TOTAL PROTEIN, SERUM 4.8 g/dL (6.0-8.3)
[2020-04-04 05:07] LABS: ABG BASE EXCESS 2.8 mmol/L (-2.0-3.0); ABG HCO3 28.9 mmol/L (21.0-28.0); ABG OXYGEN SATURATION 93.7 % (95.0-99.0); ABG PCO2 50 mmHg (35-48)
[2020-04-04] MEDS: METOCLOPRAMIDE 10 MG/2 ML VIAL IVP SCH ×4 (06:02→17:20)
[2020-04-04] MEDS: MIDODRINE HCL 5 MG TABLET PEG SCH ×3 (06:03→20:53)
[2020-04-04] MEDS: DILTIAZEM 60MG TAB GT SCH ×4 (06:03→17:22)
[2020-04-04] MEDS: ALBUMIN (HUMAN) 25% 50 ML IV SCH ×3 (06:04→20:53)
[2020-04-04] MEDS: MEROPENEM 1 GM VIAL IVP SCH ×3 (06:06→20:52)
[2020-04-04] MEDS: NOREPINEPHRIN 4MG/NS 250ML 250 ML IV SCH ×3 (09:26→21:05)
[2020-04-04] MEDS: DOCUSATE NA 100MG/10ML UDCUP PO SCH (09:36)
[2020-04-04] MEDS: FAMOTIDINE 20MG VIAL IV SCH ×2 (09:36→20:53)
[2020-04-04] MEDS: SENNOSIDES 8.6 MG TABLET GT SCH (09:36)
[2020-04-04] MEDS: DIGOXIN 250 MCG/ML 2ML AMP IV SCH (09:37)
[2020-04-04] MEDS: POLYETHYLENE GLYCOL 3350 17 GM POWD.PACK PO SCH (09:37)
[2020-04-04] MEDS: HONEY 1 APPL/ML TUBE TP SCH ×2 (13:38→20:53)
[2020-04-04] MEDS: LACTATED RINGERS 1000ML 1,000 ML IV SCH ×2 (14:04→23:50)
[2020-04-04] MEDS: VANCOMYCIN 1G 1.25 GM in 0.9% NACL 250ML 250 ML IV SCH (17:22)
[2020-04-05] VITALS (40 sets, daily range): BP systolic 76–136; BP diastolic 30–61
[2020-04-05] MEDS: DILTIAZEM 60MG TAB GT SCH ×4 (00:33→17:19)
[2020-04-05] MEDS: METOCLOPRAMIDE 10 MG/2 ML VIAL IVP SCH ×4 (00:33→17:18)
[2020-04-05] MEDS: INSULIN HUMULIN R 100 UNIT/ML 3ML SQ SCH ×4 (00:37→18:28)
[2020-04-05] MEDS: NOREPINEPHRIN 4MG/NS 250ML 250 ML IV SCH ×3 (02:34→20:40)
[2020-04-05 05:14] LABS: BASOPHILS % (AUTO) 0.1 % (0.0-5.0); EOSINOPHILS % (AUTO) 1.3 % (0.0-8.0); HEMATOCRIT 23.6 % (42-54); LYMPHOCYTES % (AUTO) 3.3 % (21.0-51.0); MEAN CORPUSCULAR HEMOGLOBIN 29.5 pg (27.0-33.0); MEAN CORPUSCULAR HGB CONC 30.1 g/dL (32.0-36.0); MEAN CORPUSCULAR VOLUME 97.9 fL (79-99); MONOCYTES % (AUTO) 2.4 % (3.0-13.0); PLATELET COUNT (AUTO) 171 K/uL (130-400); RED BLOOD CELL COUNT(AUTO) 2.41 MIL/uL (4.50-6.20)
[2020-04-05 05:24] LABS: ABG BASE EXCESS 0.1 mmol/L (-2.0-3.0); ABG HCO3 26.9 mmol/L (21.0-28.0); ABG PCO2 52 mmHg (35-48)
[2020-04-05] MEDS: NYSTATIN 100000 UNIT/ML 5ML UDCUP PO SCH ×3 (05:50→18:29)
[2020-04-05] MEDS: ALBUMIN (HUMAN) 25% 50 ML IV SCH ×3 (05:51→20:36)
[2020-04-05] MEDS: MIDODRINE HCL 5 MG TABLET PEG SCH ×3 (05:52→20:37)
[2020-04-05 05:55] LABS: ALBUMIN 2.3 g/dL (3.5-5.0); BILIRUBIN,TOTAL 0.4 mg/dL (0.2-1.0); CREATININE 1.4 mg/dL (0.5-1.5); CRP QUANTITATIVE 14.6 mg/L (0.00-9.0); POTASSIUM 4.7 mmol/L (3.5-5.1); TOTAL PROTEIN, SERUM 4.6 g/dL (6.0-8.3)
[2020-04-05] MEDS: MEROPENEM 1 GM VIAL IVP SCH ×3 (05:57→22:23)
[2020-04-05] MEDS: POLYETHYLENE GLYCOL 3350 17 GM POWD.PACK PO SCH (10:27)
[2020-04-05] MEDS: DOCUSATE NA 100MG/10ML UDCUP PO SCH (10:27)
[2020-04-05] MEDS: FAMOTIDINE 20MG VIAL IV SCH ×2 (10:27→20:37)
[2020-04-05] MEDS: HONEY 1 APPL/ML TUBE TP SCH ×2 (10:28→20:38)
[2020-04-05] MEDS: SENNOSIDES 8.6 MG TABLET GT SCH (10:32)
[2020-04-05] MEDS: TRAMADOL HCL 50 MG TABLET PO PRN (17:12)
[2020-04-05] MEDS: VANCOMYCIN 1G 1.25 GM in 0.9% NACL 250ML 250 ML IV SCH (17:18)
[2020-04-06] VITALS (57 sets, daily range): BP systolic 80–134; BP diastolic 27–57
[2020-04-06] MEDS: METOCLOPRAMIDE 10 MG/2 ML VIAL IVP SCH ×5 (00:22→23:58)
[2020-04-06] MEDS: DILTIAZEM 60MG TAB GT SCH ×5 (00:24→23:51)
[2020-04-06] MEDS: INSULIN HUMULIN R 100 UNIT/ML 3ML SQ SCH ×5 (00:26→23:59)
[2020-04-06] MEDS: NYSTATIN 100000 UNIT/ML 5ML UDCUP PO SCH (03:30)
[2020-04-06 05:11] LABS: ABG HCO3 27.7 mmol/L (21.0-28.0); ABG OXYGEN SATURATION 93.3 % (95.0-99.0); ABG PCO2 70 mmHg (35-48)
[2020-04-06 06:12] LABS: BASOPHILS % (AUTO) 0.1 % (0.0-5.0); EOSINOPHILS % (AUTO) 0.3 % (0.0-8.0); HEMATOCRIT 23.8 % (42-54); LYMPHOCYTES % (AUTO) 3.5 % (21.0-51.0); MEAN CORPUSCULAR HEMOGLOBIN 29.6 pg (27.0-33.0); MEAN CORPUSCULAR HGB CONC 29.8 g/dL (32.0-36.0); MEAN CORPUSCULAR VOLUME 99.2 fL (79-99); MONOCYTES % (AUTO) 2.3 % (3.0-13.0); PLATELET COUNT (AUTO) 159 K/uL (130-400); RED CELL DISTRIBUTION WIDTH 16.9 % (11.0-15.5)
[2020-04-06] MEDS: MIDODRINE HCL 5 MG TABLET PEG SCH ×3 (06:32→20:20)
[2020-04-06] MEDS: MEROPENEM 1 GM VIAL IVP SCH ×3 (06:33→22:01)
[2020-04-06] MEDS: ALBUMIN (HUMAN) 25% 50 ML IV SCH ×3 (06:33→20:19)
[2020-04-06 06:37] LABS: ALBUMIN 2.4 g/dL (3.5-5.0); BILIRUBIN,TOTAL 0.4 mg/dL (0.2-1.0); CREATININE 1.6 mg/dL (0.5-1.5); POTASSIUM 5.1 mmol/L (3.5-5.1); TOTAL PROTEIN, SERUM 4.8 g/dL (6.0-8.3)
[2020-04-06] MEDS: NOREPINEPHRIN 4MG/NS 250ML 250 ML IV SCH ×3 (06:38→19:10)
[2020-04-06] MEDS: SENNOSIDES 8.6 MG TABLET GT SCH (09:39)
[2020-04-06] MEDS: POLYETHYLENE GLYCOL 3350 17 GM POWD.PACK PO SCH (09:40)
[2020-04-06] MEDS: DOCUSATE NA 100MG/10ML UDCUP PO SCH (09:40)
[2020-04-06] MEDS: FAMOTIDINE 20MG VIAL IV SCH ×2 (09:40→20:19)
[2020-04-06] MEDS: HONEY 1 APPL/ML TUBE TP SCH ×2 (09:40→20:19)
[2020-04-06] MEDS ORDERED: ALBUMIN (HUMAN) 25% 50 ML IV SCH (10:00)
[2020-04-06] MEDS: FUROSEMIDE 100MG VIAL IVP SCH ×2 (14:13→20:20)
[2020-04-07] VITALS (56 sets, daily range): BP systolic 87–132; BP diastolic 31–69
[2020-04-07 05:01] LABS: BASOPHILS % (AUTO) 0.1 % (0.0-5.0); EOSINOPHILS % (AUTO) 0.7 % (0.0-8.0); HEMATOCRIT 24.3 % (42-54); LYMPHOCYTES % (AUTO) 4.2 % (21.0-51.0); MEAN CORPUSCULAR HEMOGLOBIN 29.1 pg (27.0-33.0); MEAN CORPUSCULAR HGB CONC 29.2 g/dL (32.0-36.0); MEAN CORPUSCULAR VOLUME 99.6 fL (79-99); MONOCYTES % (AUTO) 2.6 % (3.0-13.0); NEUTROPHILS % (AUTO) 91.3 % (40.0-77.0); NUCLEATED RED BLOOD CELLS 0.2 % (0.0-0.19); PLATELET COUNT (AUTO) 166 K/uL (130-400); RED BLOOD CELL COUNT(AUTO) 2.44 MIL/uL (4.50-6.20); RED CELL DISTRIBUTION WIDTH 16.5 % (11.0-15.5); WHITE BLOOD COUNT (AUTO) 13.1 K/uL (4.8-10.8)
[2020-04-07 05:49] LABS: ALBUMIN 2.5 g/dL (3.5-5.0); BILIRUBIN,TOTAL 0.3 mg/dL (0.2-1.0); CREATININE 1.9 mg/dL (0.5-1.5); POTASSIUM 5.5 mmol/L (3.5-5.1)
[2020-04-07 05:49] LABS: ABG BASE EXCESS -9.4 mmol/L (-2.0-3.0); ABG HCO3 22.2 mmol/L (21.0-28.0); ABG PCO2 76 mmHg (35-48)
[2020-04-07] MEDS: DILTIAZEM 60MG TAB GT SCH (06:00)
[2020-04-07] MEDS: METOCLOPRAMIDE 10 MG/2 ML VIAL IVP SCH ×3 (06:08→17:33)
[2020-04-07] MEDS: ALBUMIN (HUMAN) 25% 50 ML IV SCH ×3 (06:08→20:36)
[2020-04-07] MEDS: FUROSEMIDE 100MG VIAL IVP SCH (06:08)
[2020-04-07] MEDS: MIDODRINE HCL 5 MG TABLET PEG SCH (06:09)
[2020-04-07] MEDS: MEROPENEM 1 GM VIAL IVP SCH ×4 (06:09→22:40)
[2020-04-07] MEDS: INSULIN HUMULIN R 100 UNIT/ML 3ML SQ SCH ×3 (06:15→17:45)
[2020-04-07] MEDS: DOCUSATE NA 100MG/10ML UDCUP PO SCH (08:04)
[2020-04-07] MEDS: SENNOSIDES 8.6 MG TABLET GT SCH (08:04)
[2020-04-07] MEDS: FAMOTIDINE 20MG VIAL IV SCH ×2 (08:04→20:35)
[2020-04-07] MEDS: POLYETHYLENE GLYCOL 3350 17 GM POWD.PACK PO SCH (08:04)
[2020-04-07] MEDS: HONEY 1 APPL/ML TUBE TP SCH ×2 (08:05→20:36)
[2020-04-07] MEDS ORDERED: SODIUM BICARB 50MEQ 50ML VIAL IV SCH (08:30)
[2020-04-07] MEDS ORDERED: CALCIUM GLUC 1GM/10ML VIAL IV SCH (08:30)
[2020-04-07] MEDS ORDERED: CALCIUM GLUC 1GM 1 GM in 0.9%NACL 100ML 100 ML IV SCH (09:15)
[2020-04-07] MEDS: FUROSEMIDE 40MG VIAL IV SCH ×2 (09:50→20:37)
[2020-04-07] MEDS: PANTOPRAZOLE 40 MG/VIAL IVP SCH (09:56)
[2020-04-07] MEDS: NOREPINEPHRIN 4MG/NS 250ML 250 ML IV SCH ×2 (12:29→17:04)
[2020-04-07] MEDS ORDERED: DIGOXIN 250 MCG/ML 2ML AMP IV SCH (16:00)
[2020-04-07] MEDS: TRAMADOL HCL 50 MG TABLET PO PRN (17:34)
[2020-04-08] VITALS (34 sets, daily range): BP systolic 78–145; BP diastolic 32–69
[2020-04-08] MEDS: METOCLOPRAMIDE 10 MG/2 ML VIAL IVP SCH ×3 (00:53→12:00)
[2020-04-08] MEDS: NOREPINEPHRIN 4MG/NS 250ML 250 ML IV SCH ×3 (02:43→13:11)
[2020-04-08] MEDS: MEROPENEM 1 GM VIAL IVP SCH ×2 (05:24→14:17)
[2020-04-08] MEDS: ALBUMIN (HUMAN) 25% 50 ML IV SCH ×2 (05:24→14:00)
[2020-04-08] MEDS: INSULIN HUMULIN R 100 UNIT/ML 3ML SQ SCH ×3 (05:25→12:00)
[2020-04-08 05:39] LABS: BASOPHILS % (AUTO) 0.1 % (0.0-5.0); EOSINOPHILS % (AUTO) 1.5 % (0.0-8.0); HEMATOCRIT 22.4 % (42-54); LYMPHOCYTES % (AUTO) 4.3 % (21.0-51.0); MEAN CORPUSCULAR HEMOGLOBIN 29.6 pg (27.0-33.0); MEAN CORPUSCULAR HGB CONC 30.4 g/dL (32.0-36.0); MEAN CORPUSCULAR VOLUME 97.4 fL (79-99); MONOCYTES % (AUTO) 3.1 % (3.0-13.0); NEUTROPHILS % (AUTO) 89.9 % (40.0-77.0); NUCLEATED RED BLOOD CELLS 0.2 % (0.0-0.19); PLATELET COUNT (AUTO) 134 K/uL (130-400); RED CELL DISTRIBUTION WIDTH 16.8 % (11.0-15.5); WHITE BLOOD COUNT (AUTO) 10.2 K/uL (4.8-10.8)
[2020-04-08 06:12] LABS: ALBUMIN 2.7 g/dL (3.5-5.0); BILIRUBIN,TOTAL 0.5 mg/dL (0.2-1.0); CREATININE 2.2 mg/dL (0.5-1.5); CRP QUANTITATIVE 41.8 mg/L (0.00-9.0); POTASSIUM 5.4 mmol/L (3.5-5.1)
[2020-04-08] MEDS ORDERED: SODIUM BICARB 8.4% 50ML SYRINGE IVP SCH (08:15)
[2020-04-08] MEDS: PANTOPRAZOLE 40 MG/VIAL IVP SCH (09:32)
[2020-04-08] MEDS: DOCUSATE NA 100MG/10ML UDCUP PO SCH (09:32)
[2020-04-08] MEDS: POLYETHYLENE GLYCOL 3350 17 GM POWD.PACK PO SCH (09:32)
[2020-04-08] MEDS: SENNOSIDES 8.6 MG TABLET GT SCH (09:33)
[2020-04-08] MEDS: FAMOTIDINE 20MG VIAL IV SCH (09:33)
[2020-04-08] MEDS: FUROSEMIDE 40MG VIAL IV SCH (09:34)
[2020-04-08] MEDS: HONEY 1 APPL/ML TUBE TP SCH (09:40)
[2020-04-08] MEDS ORDERED: SODIUM BICARB 50MEQ 50ML VIAL IV SCH (09:41)
[2020-04-08] MEDS ORDERED: MORPHINE 2 MG SYG IM PRN (12:30)
[2020-04-08] MEDS ORDERED: SCOPOLAMINE HYDROBROMIDE 1 EACH ADH..PATCH TD SCH (12:30)
[2020-04-08] MEDS ORDERED: ATROPINE SULFATE 5 ML DROPS PO PRN (12:30)
[2020-04-08] MEDS ORDERED: ACETAMINOPHEN 650 MG SUPPOSITORY RC PRN (12:30)
[2020-04-08] MEDS ORDERED: ACETAMINOPHEN 325 MG TAB PO PRN (12:30)
[2020-04-08] MEDS ORDERED: LORAZEPAM 2 MG/ML 1 ML VIAL IVP PRN (12:30)
[2020-04-08] MEDS ORDERED: MORPHINE 20MG/ML SOLN 0.25ML PO PRN (12:30)
== END 2020-04-08 16:33 | disposition expired | DRG 4 ==
LOC: EDH 11:23 → UNDOADMIN 18:41 → EDHIP 18:41 → 2AH 02-24 00:23 → EDHIP 02-24 00:23 → 2AH 02-24 17:23 → 2BH 02-24 17:23 → UNDODISIN 04-08 16:33
PROVIDERS: ADMIT Internal Medicine; ATTEND Internal Medicine
PROC: XW13325 Transfusion of Convalescent Plasma (Nonautologous) into Peripheral Vein, Percutaneous Approach, New Technology Group 5 (ICD-10-PCS; 2020-02-23)
PROC: XW033E5 Introduction of Remdesivir Anti-infective into Peripheral Vein, Percutaneous Approach, New Technology Group 5 (ICD-10-PCS; 2020-02-24)
PROC: 5A09357 Assistance with Respiratory Ventilation, Less than 24 Consecutive Hours, Continuous Positive Airway Pressure (ICD-10-PCS; 2020-02-24)
PROC: 5A0935A Assistance with Respiratory Ventilation, Less than 24 Consecutive Hours, High Flow/Velocity Cannula (ICD-10-PCS; 2020-02-24)
PROC: 5A1955Z Respiratory Ventilation, Greater than 96 Consecutive Hours (ICD-10-PCS; principal; 2020-02-25)
PROC: 0BH17EZ Insertion of Endotracheal Airway into Trachea, Via Natural or Artificial Opening (ICD-10-PCS; 2020-02-25)
PROC: 02HV33Z Insertion of Infusion Device into Superior Vena Cava, Percutaneous Approach (ICD-10-PCS; 2020-02-25)
PROC: 30233N1 Transfusion of Nonautologous Red Blood Cells into Peripheral Vein, Percutaneous Approach (ICD-10-PCS; 2020-03-06)
PROC: 0CJS8ZZ Inspection of Larynx, Via Natural or Artificial Opening Endoscopic (ICD-10-PCS; 2020-03-07)
PROC: 0DH67UZ Insertion of Feeding Device into Stomach, Via Natural or Artificial Opening (ICD-10-PCS; 2020-03-07)
PROC: 0B110F4 Bypass Trachea to Cutaneous with Tracheostomy Device, Open Approach (ICD-10-PCS; 2020-03-16)
PROC: 0B9F8ZX Drainage of Right Lower Lung Lobe, Via Natural or Artificial Opening Endoscopic, Diagnostic (ICD-10-PCS; 2020-03-16)
PROC: 0B9F8ZZ Drainage of Right Lower Lung Lobe, Via Natural or Artificial Opening Endoscopic (ICD-10-PCS; 2020-03-16)
PROC: 0DH63UZ Insertion of Feeding Device into Stomach, Percutaneous Approach (ICD-10-PCS; 2020-03-18)
DX: A41.9 Sepsis, unspecified organism (principal); U07.1 COVID-19; J80 Acute respiratory distress syndrome; R65.21 Severe sepsis with septic shock; I21.4 Non-ST elevation (NSTEMI) myocardial infarction; N17.0 Acute kidney failure with tubular necrosis; E43 Unspecified severe protein-calorie malnutrition; J12.82 Pneumonia due to coronavirus disease 2019; J15.1 Pneumonia due to Pseudomonas; E87.1 Hypo-osmolality and hyponatremia; M62.82 Rhabdomyolysis; E87.2 Acidosis; D62 Acute posthemorrhagic anemia; I48.92 Unspecified atrial flutter; K94.23 Gastrostomy malfunction; J93.83 Other pneumothorax; K92.2 Gastrointestinal hemorrhage, unspecified; G93.49 Other encephalopathy; E87.0 Hyperosmolality and hypernatremia; Z66 Do not resuscitate; J98.2 Interstitial emphysema; D69.6 Thrombocytopenia, unspecified; I48.91 Unspecified atrial fibrillation; E87.5 Hyperkalemia; E86.1 Hypovolemia; E83.41 Hypermagnesemia; E83.39 Other disorders of phosphorus metabolism; R13.10 Dysphagia, unspecified; E83.51 Hypocalcemia; K31.89 Other diseases of stomach and duodenum; Z04.3 Encounter for examination and observation following other accident; I12.9 Hypertensive chronic kidney disease with stage 1 through stage 4 chronic kidney disease, or unspecified chronic kidney disease; R54 Age-related physical debility; N18.9 Chronic kidney disease, unspecified; W18.30XA Fall on same level, unspecified, initial encounter; M51.36 Other intervertebral disc degeneration, lumbar region; E78.5 Hyperlipidemia, unspecified; E11.22 Type 2 diabetes mellitus with diabetic chronic kidney disease; D63.8 Anemia in other chronic diseases classified elsewhere; M48.02 Spinal stenosis, cervical region; M41.9 Scoliosis, unspecified; I95.89 Other hypotension; R29.6 Repeated falls; Y92.009 Unspecified place in unspecified non-institutional (private) residence as the place of occurrence of the external cause; Z80.0 Family history of malignant neoplasm of digestive organs; Y93.89 Activity, other specified; Y99.8 Other external cause status; Z79.899 Other long term (current) drug therapy; Z68.31 Body mass index [BMI] 31.0-31.9, adult
CPT/HCPCS: 31500; 36415; 36556; 36600; 43246; 70450; 71045; 72070; 72100; 72125; 76770; 80048; 80053; 80076; 81001; 82248; 82330; 82435; 82550; 82570; 82728; 82803; 82947; 82948; 83036; 83540; 83550; 83605; 83615; 83735; 83874; 83880; 83935; 84100; 84132; 84145; 84156; 84295; 84300; 84443; 84478; 84484; 84550; 85014; 85018; 85025; 85027; 85045; 85378; 85384; 85610; 85730; 86140; 86850; 86900; 86901; 86923; 86927; 87040; 87070; 87071; 87076; 87077; 87088; 87186; 87205; 87426; 87449; 87507; 87641; 93005; 93306; 93970; 94002; 94003; 94640; 94660; 94664; A4344; C9113; G0378; J0171; J0282; J0456; J0610; J0690; J0696; J1100; J1160; J1265; J1644; J1650; J1756; J1815; J1940; J1956; J2020; J2060; J2185; J2250; J2370; J2405; J2704; J2765; J3010; J3370; J3480; J3490; J7030; J7040; J7050; J7060; J7070; J7120; J7608; P9016; P9047; Q9963; U0003